=== PATIENT | male | born 1955 | race African-American/Black ===

== ENCOUNTER 2016-08-10 08:03 | Outpatient (CLI) | payer MEDICARE ==
[~2016-08-10] VITALS: Ht 172.7 cm; Wt 104.5 kg
--- NOTE | ~2016-08-10 | HEMODYNAMI ---
PATIENT:JASE MORGAN MEDICAL RECORD: [id number] : 55 LOCATION:D.CAT ADMISSION DATE: 08/10/16 Generatedon:08/10/201610:24 Patient name: JASE MORGAN Patient #: [id number] SSN: : 1955 Date of study: 08/10/2016 Page: Of Hemodynamic Procedure Report Patient Data Patient Demographics Procedure consent was obtained First Name: JASE Gender: Male Last Name: CATHY : 1955 [facility] Initial: STARR Age: 60 year(s) Patient #: [id number] Race: Black Additional ID: [id number] Contact details [address]: [address] [place] [address] State: [place] City: [place] Zip code: [address] Past Medical History Allergies Allergen Reaction Date Comments Reported Other allergy 08/10/2016 Gabapentin Admission Admission Data Admission Date: 08/10/2016 Admission Time: 8:03 Lab Results Lab Result Date: 08/10/2016 Lab Result Time: 0:00 Biochemistry Name Units Result Min Max BUN mg/dl 43 --(----)-* 7 18 Creatinine mg/dl 10 --(----)-* 0.6 1.3 Procedure Procedure Types Cath Procedure Diagnostic Procedure LHC LH w/Coronaries Procedure Description Procedure Date Procedure Date: 08/10/2016 Procedure Start Time: 10:09 Procedure End Time: 10:23 Procedure Staff Name Function Yordan Sharpe MD Performing Physician Sravanthi Callejas RT Scrub Pablito Adair RN Nurse Aly Del Valle RT Monitor Procedure Data Cath Procedure Fluoroscopy Diagnostic fluoroscopy Total fluoroscopy Time: 1.2 time: 1.2 min min Diagnostic fluoroscopy Total fluoroscopy dose: 517 dose: 517 mGy mGy Contrast Material Contrast Material Type Amount (ml) Isovue 300 51 Entry Location Entry Primary Successful Side Size Upsize Upsize Entry Closure Succes sful Closure Location (Fr) 1 (Fr) 2 (Fr) Remarks Device Remarks Femoral Right 5 Fr Exoseal artery Estimated blood loss: 10 ml Diagnostic catheters Device Type Used For End Catheter Placement Medtronic Dexterity 5Fr Procedure Pigtail catheter (NO CHARGE) Medtronic Dexterity 5Fr Procedure JL 4.0 catheter (NO CHARGE) Medtronic Dexterity 5Fr Procedure 3DRC catheter (NO CHARGE) Procedure Medications Medication Administration Route Dosage Oxygen NC 2 l/min Lidocaine 2% added to field 20 Heparin Flush Bag added to field 2 bags (1000units/500ml NS) 0.9% NaCl I.V. 50 ml/hr Versed I.V. 1 mg Fentanyl I.V. 50 mcg Versed I.V. 1 mg Fentanyl I.V. 50 mcg Hemodynamics Rest Heart Rate: 61 (bpm) Pressure Samples Time Site Value (mmHg) Purpose Heart Use Rate(bpm) 10:11 LV 109/24,28 Snapshot 87 Snapshots Pre Cath Intra NCS Post Cath Vital Signs Time Heart Resp SPO2 NIBP (mmHg) Rhythm Pain Sedation Rate (ipm) (%) Status Level (bpm) 9:20:42 68 17 98 183/62(135) NSR 0 (11) 10(A) , No pain 9:25:39 67 27 98 178/61(129) NSR 0 (11) 10(A) , No pain 9:30:32 67 21 94 142/60(116) NSR 0 (11) 10(A) , No pain 9:35:08 65 17 93 156/64(122) NSR 0 (11) 10(A) , No pain 9:39:51 69 15 96 148/67(125) NSR 0 (11) 10(A) , No pain 9:45:37 68 19 97 145/60(122) NSR 0 (11) 10(A) , No pain 9:50:17 70 22 96 143/55(100) NSR 0 (11) 10(A) , No pain 9:54:58 68 17 95 154/59(92) NSR 0 (11) 10(A) , No pain 9:59:42 66 16 94 140/57(121) NSR 0 (11) 10(A) , No pain 10:04:21 70 19 94 129/60(99) NSR 0 (11) 10(A) , No pain 10:10:03 69 19 95 145/53(89) NSR 0 (11) 9(A) , No pain 10:14:44 71 17 95 157/59(116) NSR 0 (11) 9(A) , No pain 10:19:30 70 16 91 162/56(114) NSR 0 (11) 10(A) , No pain Medications Time Medication Route Dose Verified Delivered Reason Notes Effe ctiveness by by 9:25:16 Oxygen NC 2 Yordan Buffie used for l/min Dell Adair RN procedure 9:25:23 Lidocaine 2% added 20ml Yordan Yordan for local to vial Dell Sharpe MD anesthetic field 9:25:28 Heparin Flush added 2 Yordan Yordan used for Bag to bags Dell Sharpe MD procedure (1000units/500ml field NS) 9:25:37 0.9% NaCl I.V. 50 Yordan Buffie Per ml/hr Dell Adair RN physician 10:07:51 Versed I.V. 1 mg Yordan Ambrosioie for Dell Adair RN sedation 10:07:56 Fentanyl I.V. 50 Yordan Buffie for mcg Dell Adair RN sedation 10:14:42 Versed I.V. 1 mg Yordan Buffie for Dell Adair RN sedation 10:14:46 Fentanyl I.V. 50 Yordan Buffie for mcg Dell Adair RN sedation Procedure Log Time Note 9:14:00 Diagnostic Cath Status : Elective 9:14:52 Sravanthi Callejas RT(R) sent for patient. Start room use. 9:14:56 Time tracking: Regular hours 9:15:03 Plan of Care:Hemodynamics will remain stable., Cardiac rhythm will remain stable., Comfort level will be maintained., Respiratory function will remain adequate., Patient/ family verbilizes understanding of procedure., Procedure tolerated without complication., Recovers from procedure without complications.. 9:15:13 Patient received from Pre/Post Procedure Room to CCL 2 Alert and oriented. Tansferred to table in Supine position. 9:15:16 Warm blankets applied, and taryn hugger turned on for patient comfort. 9:15:18 Correct patient and procedure confirmed by team. 9:15:20 Signed procedure consent form obtained from patient. 9:15:24 ECG and BP/O2 sat monitors applied to patient. 9:18:57 Vital chart was started 9:19:56 Baseline sample Acquired. 9:20:04 Full Disclosure recording started 9:21:22 Snore? Yes 9:21:23 Sleep apnea? Yes 9:21:28 Patient diabetic? Yes. 9:21:29 If diabetic: On Metformin? No 9:23:41 Pre-procedure instructions explained to patient. 9:23:43 Family in waiting room. 9:23:45 Patient NPO since Midnight. 9:24:12 Patient allergic to Other allergyGabapentin 9:24:15 Is the patient allergic to Iodine/contrast media? No. 9:24:18 Is patient on blood thinner?No 9:24:31 Dentures? No ? 9:24:49 IV patent on arrival in left forearm with 0.9% NaCl at [facility]. 9::56 Lab results completed and on chart, pending. 9:25:00 Right groin area was prepped with chlora-prep and draped in sterile fashion 9:25:01 Alarms reviewed by R. N. 9:25:02 Sharps counted by scrub and verified by R.N. 9:25:02 Physician paged 9:25:16 Oxygen 2 l/min NC was administered by Pablito Adair RN; used for procedure; 9:25:23 Lidocaine 2% 20ml vial added to field was administered by Yordan Sharpe MD; for local anesthetic; 9:25:28 Heparin Flush Bag (1000units/500ml NS) 2 bags added to field was administered by Yordan Sharpe MD; used for procedure; 9:25:37 0.9% NaCl 50 ml/hr I.V. was administered by Pablito Adair RN; Per physician; 9::28 Use device set Femoral Dx 9:26:30 Acist Syringe opened to sterile field. 9:26:30 Bag Decanter opened to sterile field. 9:26:36 Medline Cath Pack opened to sterile field. 9:26:36 Terumo 5Fr Ida Sheath opened to sterile field. 9:26:37 St Brandon 260cm J .035 wire opened to sterile field. 9:26:39 Acist Hand Control opened to sterile field. 9:26:40 Acist Manifold opened to sterile field. 9::44 Tegaderm 4 x 4 opened to sterile field. 9::40 Lab Result : BUN 43 mg/dl 9:29:40 Lab Result : Creatinine 10 mg/dl 9:33:12 Deviated septum? No 9:33:14 Opens mouth fully? Yes 9:33:17 Sticks out tongue? Yes 9:33:21 Airway obstruction? No ? 9:33:49 Pre procedure: right dorsailis pedis pulse 1+ Palpable, but thready & weak; easily obliterated 9:33:54 Patient pain scale 0/10 ?. 9:34:12 Patient is right arm reserve 9:36:11 Dr. Sharpe in room 1 9:52:50 Baseline sample Acquired. 9:52:59 Rhythm: sinus rhythm 9:53:06 Baseline sample Acquired. 10:07:08 Physician arrived 10:07:09 --------ALL STOP TIME OUT------ 10:07:10 Final Timeout: patient, procedure, and site verified with staff and physician. All members of the team are in agreement. 10:07:12 Right groin site verified by team. 10:07:16 Physical assessment completed. ASA score P 3 - A patient with severe systemic disease as per Yordan Sharpe MD. 10:07:21 Sedation plan: IV Moderate Sedation Versed, Fentanyl 10:07:36 Zero performed for pressure channel P1 10:07:51 Versed 1 mg I.V. was administered by Pablito Adair RN; for sedation; 10:07:56 Fentanyl 50 mcg I.V. was administered by Pablito Adair RN; for sedation; 10:09:21 Procedure started. 10:09:27 Local anesthetic to right femoral artery with Lidocaine 2% by Yordan Sharpe MD.INITIAL ACCESS ONLY 10:10:16 A 5 Fr sheath was inserted into the Right Femoral artery 10:10:28 A Medtronic Dexterity 5Fr Pigtail catheter (NO CHARGE) was advanced over the wire and used for Procedure. 10:11:42 LV hemodynamics recorded. 10:11:54 LV gram done using PIÑA 10:11:58 LV Function : Abnormal 10:12:04 EF : 30 % 10:12:07 Catheter removed. 10:12:24 A Medtronic Dexterity 5Fr JL 4.0 catheter (NO CHARGE) was advanced over the wire and used for Procedure. 10:12:53 LCA angiography performed. 10:14:07 Catheter removed. 10:14:16 A Medtronic Dexterity 5Fr 3DRC catheter (NO CHARGE) was advanced over the wire and used for Procedure. 10:14:42 Versed 1 mg I.V. was administered by Pablito Adair RN; for sedation; 10:14:46 Fentanyl 50 mcg I.V. was administered by Pablito Adair RN; for sedation; 10:14:49 RCA angiography performed. 10:14:57 Catheter removed. 10:15:51 Cordis 5Fr Exoseal opened to sterile field. 10:16:05 Sheath removed intact; hemostasis achieved with Exoseal to the Right Femoral artery. 10:16:07 Procedure ended.(Physican Out) 10:16:21 Fluoroscopy time 01.20 minutes. 10:16:29 Flurop Dose total: 517 10:16:29 Fluoroscopy dose: 517 mGy 10:16:40 Contrast amount:Isovue 300 51ml. 10:16:41 Sharps counted by scrub and verified by R.N. 10:21:26 Insertion/operative site no bleeding no hematoma. 10:21:30 Post-op/insertion site Right Femoral artery dressed using a 4 x 4 and Tegaderm. 10:21:35 Post right femoral artery:stable 10:21:38 Post Procedure Pulses reassessed and unchanged 10:21:43 Post-procedure physical assessment completed. ASA score P 3 - A patient with severe systemic disease as per Yordan Sharpe MD. 10:21:47 Post procedure rhythm: unchanged. 10:21:50 Estimated blood loss: 10 ml 10:21:51 Post procedure instruction explained to patient.Patient verbalizes understanding. 10:21:52 Patient needs reinforcement of post procedure teaching. 10:21:54 Procedure and supply charges have been captured, reviewed, submitted and are correct. 10:22:37 Vital chart was stopped 10:23:11 See physician's report for complete and final results. 10:23:13 Report given to Pre/Post Procedure Room. 10:23:35 Patient transfered to Pre/Post Procedure Room with Stretcher. 10:23:39 Procedure ended. 10:23:39 Full Disclosure recording stopped 10:23:42 End room use (Document Last) Device Usage Item Name Manufacture Quantity Catalog Hospital Part Current Minimal Lo t# / Number Charge Number Stock Stock Serial# Code Acist Acist 1 [id number] 20 ComCam Bag Microtek 1 [id number] 36008 [id number] 5 Dec[employer] Medline Cardinal 1 [id number] 04966 545173 5 Cath Pack MobStac Terumo Terumo 1 [id number] 653240 647861 [address] Brandon 1 118188 388206 332102 [id number] 30 260cm J .035 wire Acist Acist 1 82681 [id number] 347736 816098 5 Hand Medical Control Systems Inc Acist Acist 1 48707 190758 319971 483329 5 Manifold Medical Systems Inc Tegaderm 3M 1 [id number] 399068 439562 017700 5 4 x 4 Medtronic Medtronic 1 [id number] 824683 285729 5 Dexterity 5Fr Pigtail catheter (NO CHARGE) Medtronic Medtronic 1 [id number] [id number] 5 Dexterity 5Fr JL 4.0 catheter (NO CHARGE) Medtronic Medtronic 1 [id number] 211183 946209 5 Dexterity 5Fr 3DRC catheter (NO CHARGE) Cordis Cardinal 1 [id number] 937026 684887 10 5Fr Health Exoseal Signature Audit Edmond Stage Time Signature Unsigned Intra-Procedure 08/10/2016 Aly Del Valle 10:24:15 AM RT(R) (CV) Signatures Monitor : Aly Del Valle RT Signature : Date : Time : [address] [place] [address]
--- NOTE | ~2016-08-10 | HP ---
PATIENT: JASE GEORGE MEDICAL RECORD: [id number] ACCOUNT: [id number] LOCATION:[facility] : 55 ADMISSION DATE: 08/10/16 HISTORY AND PHYSICAL EXAMINATION ADMITTING DIAGNOSES: 1. Angina. 2. Coronary artery disease. 3. Previous percutaneous transluminal coronary angioplasty stent, last being in 2013. 4. Hyperlipidemia. 5. Hypertension. HISTORY OF PRESENT ILLNESS: Mr. George has increasing anginal symptomatology just like that of his previous angina. Last cardiac stent was approximately 3 years ago. He has been in an escalating fashion despite maximal medical therapy with calcium channel blockers and beta blockers. PHYSICAL EXAMINATION: GENERAL APPEARANCE: Well-nourished, well-developed, appears stated age. Level of distress, comfortable. PSYCHIATRIC: Mental status, alert, normal affect. Orientation, oriented to time, place and person. EYES: Lids and conjunctiva, noninjected. No discharge, no pallor. ENT: Lips, teeth, gums, normal dentition. Oropharynx, no cyanosis, no pallor. NECK: Carotid arteries, bilateral normal upstroke, no bruits, no thrills. JUGULAR VEINS: No jugular venous pressure or distention. CERVICAL LYMPH NODES: Nontender, nonenlarged. THYROID: Not enlarged. Nontender. No nodules. LUNGS: Respiratory effort, unlabored. CHEST: Normal curvature. No thoracic deformity. No chest wall tenderness. Percussion, resonant. Auscultation, clear. No wheezes, no rales, no rhonchi. CARDIOVASCULAR: Precordial exam, nondisplaced. No heaves or pericardial thrills. Rate and rhythm, regular. Heart sounds, normal S1, normal S2. No S3, no gallop, no rub. Systolic murmur, not heard. Diastolic murmur, not heard. EXTREMITIES: No cyanosis, no edema. Peripheral pulses, full and equal in all extremities, except as noted. No bruits appreciated. ABDOMEN: Soft, nondistended. Normal aorta. No bruit. Nontender. No masses. Liver, nontender, no hepatomegaly. Spleen, nontender, no splenomegaly. MUSCULOSKELETAL: No joint tenderness. No joint swelling. No erythema. NEUROLOGICAL: Normal gait, normal strength, normal tone. SKIN: Warm and dry. REVIEW OF SYSTEMS: The patient reports easy bruising but reports no swollen glands. The patient reports no fever, no night sweats, no significant weight gain, no significant weight loss. No significant exercise tolerance. The patient reports no dry eyes, no irritation, no vision change. Patient reports no difficulty hearing and no ear pain. Patient reports no frequent nose bleeds or nose and sinus problems. Patient reports on arm pain on exertion. No shortness of breath while lying down. No history of heart murmur. Patient reports no cough, no wheezing or coughing up blood. Patient reports no abdominal pain, no vomiting. Normal appetite. No diarrhea and not vomiting blood. No nausea and no constipation. Patient reports no incontinence. No difficulty urinating. No hematuria. No increased frequency. Patient reports no muscle aches. No weakness, no arthralgias, no back pain. No swelling of the HISTORY AND PHYSICAL [id number] CATHY,JASE STARR extremities. Patient reports no abnormal mole, no jaundice, no rashes. Reports no loss of consciousness. No weakness and no numbness. No seizures, dizziness, or headaches. The patient reports no depression, no sleep disturbance, feeling safe in a relationship and no alcohol abuse. Patient reports on fatigue. Reports no runny nose or sinus pressure. No itching, no hives, and no frequent sneezing. OVERALL IMPRESSION: Increasing angina. We will proceed with coronary angiography. Further care depends upon findings of the angiography. TRANSINT:[id number] Voice Confirmation ID: [id number] DOCUMENT ID: [id number] LORA MENDENHALL MD CC: [id number] DICTATION DATE: 08/10/16806 ZONING ASSISTANT: 08/10/16818 [facility] [address] [place] [address]
--- NOTE | ~2016-08-10 | OP ---
PATIENT NAME: JASE MORGAN MEDICAL RECORD: [id number] :55 LOCATION:D.CAT ADMISSION DATE: SURGEON: LORA MENDENHALL MD DATE OF OPERATION: 08/10/2016 PROCEDURES: 1. Left heart catheterization. 2. Selective coronary angiography. 3. Left ventriculogram. PROCEDURE IN DETAIL: After informed consent was obtained and after a detailed explanation of risks, benefits as well as alternative therapies, the patient elected to proceed with angiogram and heart catheterization. The right femoral area was prepped and draped in normal sterile fashion. The right femoral artery was cannulated via modified Seldinger technique with placement of 6-Pakistani sheath. All catheters exchanged through this sheath. FINDINGS: The left ventriculogram was performed in the standard 30-degree PIÑA view, reveals ejection fraction in the 35% range. SELECTIVE CORONARY ANGIOGRAPHY: 1. Left main showed no significant angiographic disease. 2. Left anterior descending has previously placed stents, these are widely patent with no significant restenosis. 3. Left circumflex has moderate irregularities, but no flow-limiting stenosis. 4. Right coronary has previously placed stents, these were totally occluded in the mid vessel, there is chronic total occlusion. Distal right coronary fills via [id number] collaterals. OVERALL IMPRESSION: Total occlusion of the RCA with left to right collaterals. Otherwise, no significant disease. Continue medical management of the coronary artery disease and cardiac risk factors. TRANSINT:[id number] Voice Confirmation ID: [id number] DOCUMENT ID: [id number] LORA MENDENHALL MD CC: [id number] DICTATION DATE: 08/10/16 1028 RN REHAB: 08/10/16 1119 [id number] [place] [address]
[~2016-08-10 08:03] MED LIST: CARDURA2 MG; CLARITIN 10 MG10 MG PO; CYCLOBENZAPRINE10 MG PO; FLUTICASONE PRO16 GM NASAL; FOLTX; GLUCOTROL 5 MG T5 MG PO; KLONOPIN0.5 MG PO; LAMICTAL100 MG PO; LINZESS290 MCG PO; LYRICA25 MG PO; MECLIZINE HCL25 MG PO; MUCINEX600 MG PO; NEURONTIN 100100 MG PO; NORVASC10 MG PO; PLAVIX75 MG PO; PRAVACHOL40 MG PO; PRILOSEC20 MG PO; REGLAN5 MG PO; RENVELA800 MG PO; TOPROL XL50 MG PO; ULTRAM50 MG PO; VIBRAMYCIN 100100 MG PO; VOL-CARE
[2016-08-10 08:50] VITALS: BP 144/73; Ht 172.7 cm; Wt 104.5 kg
[2016-08-10 09:13] LABS: ANION GAP 17.8 mmol/L (8-16); CALCIUM 7.8 mg/dL (8.5-10.1); CARBON DIOXIDE 24.8 mmol/L (21.0-32.0); POTASSIUM - SERUM 5.6 mmol/L (3.5-5.1)
[2016-08-10 09:33] LABS: BASOPHILS 0.6 % (0-2); EOSINOPHILS 12.4 % (0-7); HEMOGLOBIN 14.7 g/dL (13.5-17.5); IMMATURE GRANULOCYTES 0.1 % (0-5); LYMPHOCYTES 19.9 % (15-50); MCH 29.1 pg (26.0-34.0); MCHC 31.3 g/dL (31.0-37.0); MCV 93.1 fL (80.0-100.0); MEAN PLATELET VOLUME 10.7 fL (7.4-10.4); MONOCYTES 8.8 % (2-11); NEUTROPHILS 58.2 % (40-80); PLATELET COUNT 186 10x3/uL (130-400); RBC 5.05 10x6/uL (4.20-6.10); RDW 18.2 % (11.5-14.5); WBC 7.2 10x3/uL (4.8-10.8)
--- NOTE | 2016-08-10 10:50 | NUR ---
2L NC, NO RESP DISTRESS NOTED. RIGHT GROIN EXOSEAL CDI, NO BLEEDING OR HEMATOMA NOTED. NO C/O CHEST PAIN OR NAUSEA. VSS. BROADCAST METEOROLOGIST SHOWS NSR @ 70. INSTRUCTED PT TO KEEP HEAD FLAT ON PILLOW AND RIGHT LEG STRAIGHT.
--- NOTE | 2016-08-10 11:20 | NUR ---
2L NC, NO RESP DISTRESS. RIGHT GROIN EXOSEAL FARIBA, NO BLEEDING OR HEMATOMA NOTED. MONITOR SHOWS NSR @ 68. VSS. NO C/O CHEST PAIN OR NAUSEA. AT BEDSIDE, CALL LIGHT WITHIN REACH.
--- NOTE | 2016-08-10 11:35 | NUR ---
RESTING QUIETLY WITH EYES CLOSED. VSS. 2L NC, NO RESP DISTRESS NOTED. RIGHT GROIN EXOSEAL CDI, NO BLEEDING OR HEMATOMA NOTED. NO C/O CHEST PAIN OR NAUSEA. WILL CONTINUE TO MONITOR.
--- NOTE | 2016-08-10 12:05 | NUR ---
HOB ELEVATED 30 DEGREES. RIGHT GROIN CDI, NO BLEEDING NOTED.
--- NOTE | 2016-08-10 12:19 | NUR ---
LEFT HAND PIV D/C'D WITH CATHETER INTACT. BAND AID TO SITE. UP TO BEDSIDE TO GET DRESSED.
--- NOTE | 2016-08-10 12:30 | NUR ---
DISCHARGE INSTRUCTIONS GIVEN, VERBALIZED UNDERSTANDING.
--- NOTE | 2016-08-10 12:35 | NUR ---
TAKEN OUT VIA WHEELCHAIR BY CATH FIELD ADMINISTRATOR. LEFT FACILITY WITH AND ALL PERSONAL BELONGINGS.
== END 2016-08-10 12:35 | disposition home or self-care (01) ==
LOC: D.CATH 08:03
PROVIDERS: Internal Medicine Interventional Cardiology
DX: I25.119 Atherosclerotic heart disease of native coronary artery with unspecified angina pectoris (principal); I25.82 Chronic total occlusion of coronary artery; T82.855A Stenosis of coronary artery stent, initial encounter; E78.5 Hyperlipidemia, unspecified; I10 Essential (primary) hypertension

== ENCOUNTER → 2017-02-28 07:00 | Outpatient (CLI) | payer MEDICARE ==
[2016-08-10 08:50] VITALS: BMI 35.0
== END | disposition home or self-care (01) ==
LOC: D.CT 07:00
DX: N18.6 End stage renal disease (principal); Z86.79 Personal history of other diseases of the circulatory system

== ENCOUNTER → 2017-04-07 09:04 | Outpatient (CLI) | payer MEDICARE ==
[2016-08-10 08:50] VITALS: BMI 35.0
== END | disposition home or self-care (01) ==
LOC: D.CT 09:04
DX: J98.11 Atelectasis (principal)

== ENCOUNTER → 2017-11-08 08:54 | Outpatient (CLI) | payer MEDICARE ==
[2016-08-10 08:50] VITALS: BMI 35.0
== END | disposition home or self-care (01) ==
LOC: D.CT 08:54
DX: J98.11 Atelectasis (principal)

== ENCOUNTER 2018-05-29 08:40 | Day surgery (SDC) | payer MEDICARE ==
[~2018-05-29] VITALS: Ht 172.7 cm; Wt 106.6 kg
[2018-05-29 09:15] LABS: ANION GAP 18.7 mmol/L (8-16); CALCIUM 8.5 mg/dL (8.5-10.1); CARBON DIOXIDE 23.3 mmol/L (21.0-32.0); CREATININE - SERUM 8.5 mg/dL (0.6-1.3)
[2018-05-29 09:19] LABS: APTT 41.9 SECONDS (22.8-39.4); INR 1.08 (0.85-1.17); PROTIME 13.5 SECONDS (11.6-15.0)
[2018-05-29 09:32] LABS: BASOPHILS 0.1 % (0-2); EOSINOPHILS 1.8 % (0-7); HEMATOCRIT 40.3 % (42.0-54.0); HEMOGLOBIN 13.3 g/dL (13.5-17.5); IMMATURE GRANULOCYTES 0.2 % (0-5); LYMPHOCYTES 11.1 % (15-50); MCH 29.8 pg (26.0-34.0); MCV 90.2 fL (80.0-100.0); MEAN PLATELET VOLUME 10.8 fL (7.4-10.4); MONOCYTES 5.1 % (2-11); NEUTROPHILS 81.7 % (40-80); PLATELET COUNT 205 10x3/uL (130-400); RBC 4.47 10x6/uL (4.20-6.10); RDW 15.8 % (11.5-14.5); WBC 8.4 10x3/uL (4.8-10.8)
[2018-05-29] MEDS ORDERED: SENSIPAR30 MG PO (10:12)
[2018-05-29 10:17] VITALS: BP 153/90; Ht 172.7 cm; Wt 106.6 kg
--- NOTE | 2018-05-29 15:02 | NUR ---
DR DAY SENT AFRIN HOME WITH PATIENT, ANOTHER ONE GIVEN TO PATIENT, IN RECOVERY ROOM.
--- NOTE | 2018-05-29 15:12 | NUR ---
PATIENT HAD COUGH PREOPERATIVE AND HAS COUGH POSTOP IN RECOVERY ROOM.
[2018-05-31 15:22] LABS: FUNGUS STAIN Final report (())
[2018-05-31 16:11] LABS: ACID FAST SMEAR Negative (()); AFB SPECIMEN PROCESSING Concentration (())
--- NOTE | 2018-06-05 08:45 | HP ---
PATIENT: JASE GEORGE MEDICAL RECORD: [id number] ACCOUNT: [id number] LOCATION:[facility] : 55 ADMISSION DATE: 05/29/18 PCP: JESUS MAYFIELD MD HISTORY AND PHYSICAL EXAMINATION HISTORY: Mr. George has been having chronic problems with drainage and been found to have opacified left maxillary sinus, has not been responding to medical therapy. He is being admitted for bilateral middle meatal antrostomy. PAST MEDICAL HISTORY: Includes diabetes, end-stage renal disease, reflux, pacemaker. PAST SURGICAL HISTORY: Includes CABG, hernia repair, knee surgery. He is on dialysis. MEDICATIONS: Include Plavix, amlodipine, tramadol, Lyrica, metoprolol, omeprazole, Linzess, Sensipar, Breo, Renvela, albuterol. ALLERGIES: No known drug allergies. PHYSICAL EXAMINATION: GENERAL: Healthy-appearing. FACE: Normal, symmetric, no lesions. EYES: Sclerae and conjunctivae are normal. EARS: Canals and TMs are normal. NOSE: There is a thick purulent drainage coming from the left maxillary sinus. ORAL CAVITY AND OROPHARYNX: Tongue protrudes in midline. Pharynx is normal. NECK: No masses. No adenopathy. CHEST: Clear. CARDIOVASCULAR: Regular rate and rhythm. No murmur. EXTREMITIES: Normal. IMPRESSION: Chronic maxillary sinusitis. Has a history of fungal sinusitis back about 9 years ago. I suspect that is same problem. He is being admitted for bilateral middle meatal antrostomy, for cultures and path. TRANSINT:[id number] Voice Confirmation ID: [id number] DOCUMENT ID: [id number] ALVINO DAY MD at 0845 CC: [id number] DICTATION DATE: 05/26/18 0930 PATTERN REPAIR PERSON: 05/26/18 1049 [facility] 05/29/18 [place] [address]
--- NOTE | 2018-06-05 08:45 | OP ---
PATIENT NAME: JASE MORGAN MEDICAL RECORD: [id number] :55 [facility] AD[facility] DATE: SURGEON: ALVINO CARMONA MD DATE OF OPERATION: 05/29/2018 PREOPERATIVE DIAGNOSES: Bilateral chronic maxillary sinusitis. POSTOPERATIVE DIAGNOSES: Bilateral chronic maxillary sinusitis. PROCEDURES: Bilateral middle meatal antrostomy. SURGEON: Alvino Carmona MD ANESTHESIA: General orotracheal. BLOOD LOSS: Less than 5 cc. SPECIMENS: Cultures and path of material from the left maxillary sinus. COMPLICATIONS: None. PACKING: None. DISPOSITION: Recovery, stable. DESCRIPTION OF PROCEDURE: He was brought to the operating room, placed in the supine position, and sedated and intubated by anesthesia. Both sides of the nose were examined using headlight and nasal speculum. Inferior turbinate, middle turbinate, and uncinate lateral nasal wall were injected with a total 1.5 cc of 1% lidocaine with 1:100,000 epinephrine. He had been decongested with Afrin preoperatively. Two Afrin pledgets were placed in the middle meatus bilaterally and table was turned 90 degrees. He was positioned, prepped, and draped in the usual fashion for nasal surgery. Using a 0-degree scope, both sides of the nose were examined. All the Afrin pledgets were removed. The right side was examined first. Inferior turbinate was normal. The right middle meatus was opened slightly, but the maxillary sinus was fairly clean and there was nothing in there. The ethmoid cavity was checked as well and it was clean. The sinus was irrigated and examined, and was normal; just opened up a little bit there. The nasal cavity and nasopharynx were normal. There was some septal deviation, but not too bad. The left side was then examined and there was obvious purulence coming from the middle meatus. The middle turbinate was gently medialized. There was a Misti's cell there with some granular changes and some granular edematous tissue covering the natural meatus. Forceps was used to remove quite a bit of that for pathology. Then, the middle meatus was entered with a large curved olive tip suction. It was suctioned with a Luki trap. Some chunks of solid green material were obtained. This was sent for cultures including aerobic, anaerobic, and fungal. Using a microdebrider, the anterior ethmoids were taken down somewhat and then the maxillary ostia was opened widely, again the 30-degree scope in there and long curved olive tip suction. The superior sinus cleaned out easily, but the inferior half of the sinus was basically a solid block of hard green material. This could be broken up, but it was difficult to remove. Another curved olive tip suction was inserted in the inferior meatus and popped into the maxillary sinus to help break up and debride that material, that combined with irrigating in one suction and suctioning with other simultaneously with 100 cc of saline, was able to OPERATIVE REPORT [id number] JASE MORGAN break up and remove all that. I then examined the maxillary sinus with 30- and 70-degree scopes. There were some granular irregular changes to the mucosa from chronic infection, but the sinus was completely clean with a nice clean large maxillary ostia. The ethmoids were irrigated. The nasopharynx was irrigated with everything completely clean and dry. Curved olive tip suction with some mupirocin was used to place in the left maxillary sinus and the ethmoid cavity. He was awakened, extubated, and transported to recovery in good condition. No complications. TRANSINT:[id number] Voice Confirmation ID: [id number] DOCUMENT ID: [id number] ALVINO CARMONA MD at 0845 CC: [id number] DICTATION DATE: 05/29/18 1504 CLEAT MAKER: 05/29/18 1743 [facility] 05/29/18 [facility] [address] [place] [address]
[2018-06-06 12:14] LABS: FUNGUS MYCOLOGY CULTURE Preliminary report (())
== END 2018-05-29 17:00 | disposition home or self-care (01) ==
LOC: D.OPS 08:40 → D.PAN 08:45 → D.OPS 08:45
PROVIDERS: Anesthesiology; Otolaryngology
DX: J32.0 Chronic maxillary sinusitis (principal); E11.22 Type 2 diabetes mellitus with diabetic chronic kidney disease; N18.6 End stage renal disease; Z99.2 Dependence on renal dialysis; K21.9 Gastro-esophageal reflux disease without esophagitis; Z95.1 Presence of aortocoronary bypass graft; Z95.0 Presence of cardiac pacemaker; Z79.02 Long term (current) use of antithrombotics/antiplatelets; Z79.891 Long term (current) use of opiate analgesic; Z01.812 Encounter for preprocedural laboratory examination

== ENCOUNTER 2019-06-06 10:53 | Inpatient (IN) | payer MEDICARE ==
[2019-06-06] VITALS (17 sets, daily range): BP systolic 87–189; BP diastolic 27–106; BMI 37.1
[~2019-06-06] VITALS: Ht 172.7 cm; Wt 99.7 kg
--- NOTE | ~2019-06-06 | HEMODYNAMI ---
PATIENT:JASE MORGAN MEDICAL RECORD: [id number] : 55 [id number] ADMISSION DATE: 06/06/19 Generatedon:06/08/201913:38 Patient name: JASE MORGAN Patient #: [id number] : 1955 Date of study: 06/08/2019 Page: Of Hemodynamic Procedure Report Patient Data Patient Demographics Procedure consent was obtained First Name: JASE Gender: Male Last Name: CATHY : 1955 Middle Initial: STARR Age: 63 year(s) Patient #: [id number] Race: Black SSN: [id number] Additional ID: [id number] Contact details [address]: [address] [place] [address] State: [place] City: [place] Zip code: [address] Past Medical History Allergies Allergen Reaction Date Comments Reported Other allergy 08/10/2016 Gabapentin Admission Admission Data Admission Date: 06/06/2019 Admission Time: 17:33 Arrival Date: 06/08/2019 Arrival Time: 0:00 Admit Source: Other Insurance Payor: Medicare Room #: D.2310 [facility] #: [id number] Height (in.): 68 BSA: 2.23 (m2) Height (cm.): 172.72 BMI: 37.24 (kg/m2) Weight (lbs.): 244.93 Weight (kg.): 111.1 Lab Results Lab Result Date: 06/08/2019 Lab Result Time: 0:00 Biochemistry Name Units Result Min Max BUN mg/dl 49 --(----)-* 7 18 CK-MB ng/ml 2.5 --(--*-)-- 0 3.6 Creatinine mg/dl 9.8 --(----)-* 0.6 1.3 eGFR ml/min 6 *-(----)-- 90 120 NONAFRICAN Troponin l ng/ml 0.274 --(----)-* 0 0.06 CBC Name Units Result Min Max Hematocrit % 46.7 --(-*--)-- 42 54 Hemoglobin g/dl 15.1 --(-*--)-- 13.5 17.5 Procedure Procedure Types Cath Procedure Diagnostic Procedure [facility] w/Coronaries Sedation Charges Moderate Sedation up to 15 minutes PCI Procedure Coronary Stent Coronary Stent Initial Hemochron ACT Test Procedure Description Procedure Date Procedure Date: 06/08/2019 Procedure Start Time: 13:15 Procedure End Time: 13:36 Procedure Staff Name Function Pablito Adair RN Nurse Yordan Sharpe MD Performing Physician Chika Grigsby RT Monitor Isabell Portillo RT Scrub Khushboo Toro RN Monitor Procedure Data Cath Procedure Fluoroscopy Diagnostic fluoroscopy Total fluoroscopy Time: 4.3 time: 4.3 min min Diagnostic fluoroscopy Total fluoroscopy dose: 435 dose: 435 mGy mGy Contrast Material Contrast Material Type Amount (ml) Isovue 300 81 Entry Location Entry Primary Successful Side Size Upsize Upsize Entry Closure Succes sful Closure Location (Fr) 1 (Fr) 2 (Fr) Remarks Device Remarks Femoral Right 5 Fr 6 Fr Exoseal artery Short Estimated blood loss: 10 ml Diagnostic catheters Device Type Used For End Catheter Placement MULTIPACK Pigtail 5 Fr Procedure catheter MULTIPACK JL 4.0 5Fr Procedure catheter MULTIPACK 3DRC 5Fr Procedure catheter Procedure Complications No complications Procedure Medications Medication Administration Route Dosage Oxygen Lidocaine 2% added to field 20 Heparin Flush Bag added to field 2 bags (1000units/500ml NS) 0.9% NaCl I.V. Versed I.V. 0.5 mg Heparin Bolus I.V. 4000 units Integrilin (Bolus I.V. 10.2 ml 2mg/ml) Plavix 600 mg Hemodynamics Rest BSA: 2.23 (m2) HGB: 15.1 (g/dl) O2 Consumption: Estimated: 269.94 (ml/min) O2 Co nsumption indexed: Estimated:121.05 (ml/min/m) Heart Rate: 81 (bpm) Snapshots Pre Cath Intra NCS Post Cath Vital Signs Time Heart Resp SPO2 etCO2 NIBP (mmHg) Rhythm Pain Sedation Rate (ipm) (%) (mmHg) Status Level (bpm) 13:04:39 82 21 90 0 116/28(81) NSR (Missing) 9(A) 13:13:40 81 37 93 0 171/136(149) NSR (Missing) 9(A) 13:19:14 80 21 96 0 90/72(85) NSR (Missing) 9(A) 13:22:59 81 20 90 0 102/90(100) NSR (Missing) 9(A) 13:26:54 62 23 92 0 99/84(97) NSR (Missing) 9(A) 13:32:00 62 27 92 0 83/68(72) NSR (Missing) 9(A) 13:35:55 61 8 84 0 87/62(81) NSR (Missing) 9(A) Medications Time Medication Route Dose Verified Delivered Reason Notes Effectiveness by by 13:02:56 Oxygen intubated pt on Yordan Buffie Per physicia n ventilator Dell Adair RN 13:03:08 Lidocaine 2% added to 20ml vial Yordanjason Farr for local field Dell Sharpe MD anesthetic 13:03:15 Heparin Flush added to 2 bags Yordan Yordan used for Bag field Dell Sharpe MD procedure (1000units/500ml NS) 13:03:25 0.9% NaCl I.V. kvo ml/hr Yordan Buffmiah Per physicia n Dell Adair RN 13:17:24 Versed I.V. 0.5 mg Yordan Ambrosioie for sedation Dell Adair RN 13:21:42 Heparin Bolus I.V. 4000 units Yordan Kenney for verified Dell Adair RN anticoagulation with dr sharpe 13:24:39 Integrilin I.V. 10.2 ml Yordan Ambrosioie for wasted (Bolus 2mg/ml) Dell Adair RN antiplatelet 9.8 m l therapy of vial. 13:33:23 Plavix ngt-crushed 600 mg Yordan Buffie for Dell Adair RN antiplatelet therapy Procedure Log Time Note 10:49:29 Informed consent obtained and on chart 12:12:48 Risk of Mortality: 1.7 12:12:52 Risk of blood transfusion: 2.0 12:12:55 Risk of LASHANDA: 18.6 12:13:00 Stress Test: no; N/A ? 12:13:06 Lab results completed and on chart. 12:13:41 Lab Result : eGFR NONAFRICAN 6 ml/min 12:13:41 Lab Result : Hemoglobin 15.1 g/dl Lab Result : Hematocrit 46.7 % : Lab Result : Troponin l 0.274 ng/ml Lab Result : BUN 49 mg/dl Lab Result : Creatinine 9.8 mg/dl : Lab Result : CK-MB 2.5 ng/ml 12:17:44 Arrival Date: 06/08/2019 12:00:00 AM 12:17:45 Admit Source: Other 12::49 Insurance Payor : Medicare 12:18:09 Patient Height : 68 inches 12:18:14 Patient Weight : 244.93 lbs 12::49 Diagnostic Cath Status : Urgent 12::28 Procedure Status Urgent Heart Cath (IP). 12:20:30 Time tracking: Regular hours (M-F 7:00 - 5:00) 12:20:33 Plan of Care:Hemodynamics will remain stable., Cardiac rhythm will remain stable., Comfort level will be maintained., Respiratory function will remain adequate., Patient/ family verbilizes understanding of procedure., Procedure tolerated without complication., Recovers from procedure without complications.. 12:21:24 Pablito Adair RN sent for patient. Start room use. 12:56:46 Patient received from ICU to CCL 3 On ventilator. Tansferred to table in Supine position. PT IS ALERT AND ORIENTED. 12:57:57 Warm blankets applied, and taryn hugger turned on for patient comfort. 12:57:58 Correct patient and procedure confirmed by team. 12:57:59 ECG and BP/O2 sat monitors applied to patient. 12:58:31 Baseline sample Acquired. 12:58:35 Rhythm: sinus rhythm 12:59:54 H&P Date Dictated: 06/08/2019 New H&P dictated by physician.. 12:59:56 Patient NPO since Midnight. 13:00:00 Family in waiting room. 13:00:02 Pre-procedure instructions explained to patient. 13:00:02 Pre-op teaching completed and patient verbalized understanding. 13:00:05 Is patient on blood thinner?No 13:00:21 PATIENT OFF OF PLAVIX SINCE TUESDAY- PER 13:00:25 Patient diabetic? Yes. 13:00:26 If diabetic: On Metformin? No 13:00:28 Previous problem with sedation/anesthesia? No ? 13:00:29 Snore? Yes 13:00:45 Sleep apnea? No 13:00:46 Deviated septum? No 13:00:47 Opens mouth fully? Yes 13:00:48 Sticks out tongue? Yes 13:01:58 Baseline sample Acquired. 13:02:56 Oxygen pt on ventilator intubated was administered by Pablito Adair RN; Per physician; Verbal order read back and verified. 13:03:08 Lidocaine 2% 20ml vial added to field was administered by Yordan Sharpe MD; for local anesthetic; Verbal order read back and verified. 13:03:15 Heparin Flush Bag (1000units/500ml NS) 2 bags added to field was administered by Yordan Sharpe MD; used for procedure; Verbal order read back and verified. 13:03:25 0.9% NaCl kvo ml/hr I.V. was administered by Pablito Adair RN; Per physician; Verbal order read back and verified. 13:12:33 Full Disclosure recording started 13:12:37 Vital chart was started 13:12:39 Baseline sample Acquired. 13:13:11 Airway obstruction? Yes ? 13:13:22 Dentures? No ? 13:13:27 Pre procedure: right dorsailis pedis pulse Doppler 13:13:31 Patient pain scale 0/10 ?. 13:13:51 IV patent on arrival in left antecubital with 0.9% NaCl at KVO. 13:14:02 Right groin area was prepped with chlora-prep and draped in sterile fashion 13:14:04 Alarms reviewed by R. N. 13:14:04 Sharps counted by scrub and verified by R.N. 13:14:06 --------ALL STOP TIME OUT------ 13:14:06 Final Timeout: patient, procedure, and site verified with staff and physician. All members of the team are in agreement. 13:14:08 Right groin site verified by team. 13:14:12 Fire Safety Assessment: A--An alcohol-based skin anteseptic being used preoperatively., C--Open oxygen or nitrous oxide is being used., D--An ESU, laser, or fiber-optic light is being used. 13:14:19 Physical assessment completed. ASA score P 4 - A patient with severe systemic disease that is a constant threat to life as per Yordan Sharpe MD. 13:14:29 2) 60-89 Mildly reduced kidney function, and other findings (as for stage 1) point to kidney disease. 13:15:06 Maximum allowable contrast dose (3.7 X eGFR X 0.75)169 ml. 13:15:11 Sedation plan: IV Moderate Sedation Medication:Versed, Fentanyl 13:15:31 Use device set Femoral Dx 13:15:33 ACIST Syringe (56417) opened to sterile field. 13:15:33 Bag Decanter (2002S) opened to sterile field. 13:15:34 Medline Cath Pack ([id number]) opened to sterile field. 13:15:37 ACIST Hand Control (64473) opened to sterile field. 13:15:38 ACIST Manifold (60184) opened to sterile field. 13:15:40 DIAGNOSTIC Multipack 5Fr catheter set (KG7074) opened to sterile field. 13:15:43 SHEATH 5FR Goodell (ODY068) opened to sterile field. 13:15:44 EMERALD Guide Wire (290-258) opened to sterile field. 13:15:50 Procedure started. 13:15:55 Local anesthetic to right femoral artery with Lidocaine 2% by Yordan Sharpe MD.INITIAL ACCESS ONLY 13:16:12 A 5 Fr sheath was inserted into the Right Femoral artery 13:17:24 Versed 0.5 mg I.V. was administered by Pablito Adair RN; for sedation; Verbal order read back and verified. 13:17:27 A MULTIPACK Pigtail 5 Fr catheter was advanced over the wire and used for Procedure. 13:17:36 LV gram done using PIÑA 13:17:43 EF : 30 % 13:17:48 Injector settings: Ml/sec: 5, Volume: 15, 13:17:51 Catheter removed. 13:17:58 A MULTIPACK JL 4.0 5Fr catheter was advanced over the wire and used for Procedure. 13:18:26 LCA angiography performed. 13:19:19 Catheter removed. 13:19:28 A MULTIPACK 3DRC 5Fr catheter was advanced over the wire and used for Procedure. 13:19:32 RCA angiography performed. 13:20:08 Catheter removed. 13:21:17 Proceeding to intervention. 13:21:38 INFLATOR Jes Asher (ND5612) opened to sterile field. 13:21:42 Heparin Bolus 4000 units I.V. was administered by Pablito Adair RN; for anticoagulation; verified with dr sharpe Verbal order read back and verified. 13:22:08 CHOICE PT Extra Support 182cm wire ([id number]) opened to sterile field. 13:22:15 SHEATH 6FR Goodell (PJZ038) opened to sterile field. 13:22:17 GUIDE 6FR HS II SH catheter ([id number]) opened to sterile field. 13:22:32 Sheath upsized to a 6 Fr Short. 13:23:12 Pre PCI Site: [place] RCA has 99% stenosis. 13:23:19 6 Fr HSII SH guide catheter was inserted over the wire 13:23:25 CHOICE PT ES wire advanced. 13:23:30 Wire advanced across lesion. 13:23:58 Inflate balloon Inflation number: 1 A EUPHORA 2.0 x 30 Balloon ([id number]) was prepped and advanced across the Mid RCA , then inflated to 17 PAMELA for 0:00 (min:sec) . 13:24:03 Inflation number: 2 The EUPHORA 2.0 x 30 Balloon ([id number]) was reinflated across the Mid RCA , to 23 PAMELA for 0:00 (min:sec) . 13:24:21 Inflation number: 3 The EUPHORA 2.0 x 30 Balloon ([id number]) was reinflated across the Mid RCA , to 23 PAMELA for 0:00 (min:sec) . 13:24:39 Integrilin (Bolus 2mg/ml) 10.2 ml I.V. was administered by Pablito Adair RN; for antiplatelet therapy; wasted 9.8 ml of vial. Verbal order read back and verified. 13:25:34 Balloon removed over the wire. 13:26:38 Place stent Inflation Number: 4 A DIANE RX 3.0 x 38 stent ([id number]) was prepped and advanced across the Mid RCA . The stent was deployed at 13 PAMELA for 0:00 (min:sec) . 13:26:45 Stent catheter was removed intact over wire. 13:28:39 Place stent Inflation Number: 5 A DIANE RX 2.0 x 15 stent ([id number]) was prepped and advanced across the Mid RCA . The stent was deployed at 13 PAMELA for 0:00 (min:sec) . 13:29:10 Stent catheter was removed intact over wire. 13:29:11 Wire removed. 13:29:14 Guide catheter removed. 13:29:30 Sheath removed intact; hemostasis achieved with Exoseal to the Right Femoral artery. 13:30:49 Procedure ended.(Physican Out) 13:30:52 Fluoroscopy time 04.30 minutes. 13:30:56 Flurop Dose total: 435 13:30:56 Fluoroscopy dose: 435 mGy 13:31:06 Dose Area Product 53338 mGy/cm. 13:31:20 Contrast amount:Isovue 300 81ml. 13:31:30 Maximum allowable dose exceeded? No. 13:31:33 Sharps counted by scrub and verified by R.N. 13:32:11 Insertion/operative site no bleeding no hematoma. 13:32:14 Post-op/insertion site Right Femoral artery dressed using a 4 x 4 and Tegaderm. 13:32:19 Post right femoral artery:stable, soft, clean and dry 13:32:23 Post Procedure Pulses reassessed and unchanged 13:32:29 Post procedure: right dorsailis pedis pulse Doppler. 13:32:34 Post-procedure physical assessment completed. ASA score P 4 - A patient with severe systemic disease that is a constant threat to life as per Yordan Sharpe MD. 13:32:38 Post procedure rhythm: unchanged. 13:32:49 Estimated blood loss: 10 ml 13:32:52 Post procedure instruction explained to patient.Patient verbalizes understanding. 13:32:53 Patient needs reinforcement of post procedure teaching. 13:33:23 Plavix 600 mg ngt-crushed was administered by Pablito Adair RN; for antiplatelet therapy; Verbal order read back and verified. 13:34:11 Procedure type changed to Cath procedure, Diagnostic procedure, LHC, LHC w/Coronaries, Sedation Charges, Moderate Sedation up to 15 minutes, PCI procedure, Coronary Stent, Coronary Stent Initial, Hemochron ACT Test 13:35:10 ACT drawn and resulted at out of range high seconds. (normal therapeutic range 180-240 seconds). 13:36:34 Procedure and supply charges have been captured, reviewed, submitted and are correct. 13:36:37 Procedure Complication : No complications 13:36:39 Vital chart was stopped 13:36:43 [facility] Findings: MVD- PCI performed (see procedure note) 13:36:44 Operative report dictated upon procedure completion. 13:36:45 See physician's report for complete and final results. 13:36:47 Report given to ICU. 13:36:51 Patient transfered to ICU with Bed. 13:36:53 Procedure ended. 13:36:53 Full Disclosure recording stopped 13:37:03 ACC-PCI Only Patient was given prescriptions, or instructed by Yordan Sharpe MD to start/continue the following medications upon discharge: Plavix 13:37:04 End room use (Document Last) 13:37:15 End room use (Document Last) 13:38:09 End room use (Document Last) Intervention Summary Intervention Notes Time ActionType Lesion and Equipment Used Action# Pressure Duration Attributes 13:23:58 Inflate Mid RCA EUPHORA 2.0 x 1 17 00:00 balloon 30 Balloon ([id number]) 13:24:03 Reinflate Mid RCA EUPHORA 2.0 x 2 23 00:00 balloon 30 Balloon ([id number]) 13:24:21 Reinflate Mid RCA EUPHORA 2.0 x 3 23 00:00 balloon 30 Balloon ([id number]) 13:26:38 Place stent Mid RCA DIANE RX 3.0 x 4 13 00:00 38 stent ([id number]) 13:28:39 Place stent Mid RCA DIANE RX 2.0 x 5 13 00:00 15 stent ([id number]) Device Usage Item Name Manufacture Quantity Catalog Number [facility] Part Current M inimal Lot# / Charge Number Stock Stock Serial# Code ACIST Syringe Acist 1 30814 600753 666420 940071 2 0 (12858) Medical Systems Inc Bag Decanter Microtek 1 [id number] 99728 528973 5 () Medical Inc. Medline Cath Medline 1 [id number] 510147 18255 029647 5 Pack ([id number]) ACIST Hand Acist 1 37832 159983 572946 787676 5 Control Medical (79582) Systems Inc ACIST Manifold Acist 1 79943 666445 872582 157898 5 (44528) Medical Systems Inc DIAGNOSTIC Cardinal 1 FJ5776 956470 23192 532951 3 0 Multipack 5Fr Health catheter set (PO7941) SHEATH 5FR Terumo 1 ODT831 100101 363562 230912 5 Goodell (HVM138) EMERALD Guide Cardinal 1 502-455 810380 564241 638614 5 Wire (502-455) Health MULTIPACK Cardinal 1 116087 5 Pigtail 5 Fr Health catheter MULTIPACK JL Cardinal 1 391537 5 4.0 5Fr Health catheter MULTIPACK 3DRC Cardinal 1 168848 5 5Fr catheter Health INFLATOR Merit Merit 1 XG9469 631389 403060 543486 1 5 Xinguodu (DR3090) CHOICE PT Willits 1 [id number] 772892 547189 395858 5 Extra Support Scientific 182cm wire ([id number]) SHEATH 6FR Terumo 1 FPP759 326029 496517 833382 4 0 Goodell (NMB884) GUIDE 6FR HS Medtronic 1 [id number] 522623 70936 812908 1 II SH catheter ([id number]) EUPHORA 2.0 x Medtronic 1 [id number] 271579 801519 097238 5 [id number] 30 Balloon ([id number]) DIANE RX 3.0 x Medtronic 1 [id number] 821179 4806286 932587 5 [id number] 38 stent ([id number]) DIANE RX 2.0 x Medtronic 1 [id number] 527347 9066366 054499 5 [id number] 15 stent ([id number]) Signature Audit [place] Stage Time Signature Unsigned Intra-Procedure 06/08/2019 Khushboo Toro 1:37:15 PM RN Intra-Procedure 06/08/2019 Pablito Adair RN 1:38:09 PM Intra-Procedure 06/08/2019 Yordan Sharpe 1:38:56 PM [place] 404[address] [facility] [place] [address]
--- NOTE | ~2019-06-06 | HEMODYNAMI ---
PATIENT:JASE MORGAN MEDICAL RECORD: [id number] : 55 LOCATION:[facility] D.2310 [facility]# [id number] ADMISSION DATE: 06/06/19 Generatedon:06/13/20199:37 Patient name: JASE MORGAN Patient #: [id number] : 1955 Date of study: 06/13/2019 Page: Of Hemodynamic Procedure Report Patient Data Patient Demographics Procedure consent was obtained First Name: JASE Gender: Male Last Name: CATHY : 1955 Middle Initial: STARR Age: 63 year(s) Patient #: [id number] Race: Black SSN: [id number] Additional ID: [id number] Contact details [address]: [address] [place] [address] State: [place] City: [place] Zip code: [address] Past Medical History Allergies Allergen Reaction Date Comments Reported Other 08/10/2016 Gabapentin allergy Other 06/13/2019 GABAPENTIN,(POLYSULFONE) allergy Admission Admission Data Admission Date: 06/06/2019 Admission Time: 17:33 Arrival Date: 06/08/2019 Arrival Time: 0:00 Admit Source: Other Insurance Payor: Medicare Room #: D.2310 [facility] #: [id number] Height (in.): 68 BSA: 2.23 (m2) Height (cm.): 172.72 BMI: 37.24 (kg/m2) Weight (lbs.): 244.93 Weight (kg.): 111.1 Lab Results Lab Result Date: 06/13/2019 Lab Result Time: 0:00 Biochemistry Name Units Result Min Max BUN mg/dl 43 --(----)-* 7 18 Creatinine mg/dl 10 --(----)-* 0.6 1.3 eGFR ml/min 7.933054 *-(----)-- 90 120 AM CBC Name Units Result Min Max Hematocrit % 35 *-(----)-- 42 54 Hemoglobin g/dl 11.5 *-(----)-- 13.5 17.5 Procedure Procedure Types Cath Procedure Diagnostic Procedure Sedation Charges Moderate Sedation up to 15 minutes PCI Procedure Coronary Stent Coronary Stent Initial Coronary Stent Initial x2 Hemochron ACT Test Procedure Description Procedure Date Procedure Date: 06/13/2019 Procedure Start Time: 9:12 Procedure End Time: 9:36 Procedure Staff Name Function Yordan Sharpe MD Performing Physician Raghavendra Mccain RN Nurse Isabell Portillo RT Monitor Selma Dominguez RT Scrub Procedure Data Cath Procedure Fluoroscopy Diagnostic fluoroscopy Total fluoroscopy Time: 4 time: 4 min min Diagnostic fluoroscopy Total fluoroscopy dose: 347 dose: 347 mGy mGy Contrast Material Contrast Material Type Amount (ml) Isovue 370 55 Entry Location Entry Primary Successful Side Size Upsize Upsize Entry Closure Succes sful Closure Location (Fr) 1 (Fr) 2 (Fr) Remarks Device Remarks Femoral Right 6 Fr Exoseal artery Short Estimated blood loss: 10 ml Procedure Complications No complications Procedure Medications Medication Administration Route Dosage 0.9% NaCl I.V. 10 ml/hr Oxygen 100 Heparin Flush Bag added to field 2 bags (1000units/500ml NS) Lidocaine 2% 20 Diprivan 1% 40 mcg/kg/min (Propofol) Fentanyl 150 mcg/hr Heparin Bolus I.V. 4000 units Hemodynamics Rest BSA: 2.23 (m2) HGB: 11.5 (g/dl) O2 Consumption: Estimated: 252.46 (ml/min) O2 Co nsumption indexed: Estimated:113.21 (ml/min/m) Heart Rate: 60 (bpm) Snapshots Pre Cath Intra NCS Post Cath Vital Signs Time Heart Resp SPO2 etCO2 NIBP (mmHg) Rhythm Pain Sedation Rate (ipm) (%) (mmHg) Status Level (bpm) 9:07:04 62 21 99 0 107/73(90) NSR 0 (11) 7(A) , No pain 9:13:27 61 18 99 0 137/83(83) NSR 0 (11) 7(A) , No pain 9:18:11 60 21 100 0 129/45(89) NSR 0 (11) 7(A) , No pain 9:23:35 60 21 100 0 84/69(81) NSR 0 (11) 7(A) , No pain 9:28:58 59 21 99 0 164/42(106) NSR 0 (11) 7(A) , No pain 9:33:57 60 21 99 0 Measuring NSR 0 (11) 7(A) , No pain 9:35:19 0 Time NSR 0 (11) 7(A) Exceeded , No pain Medications Time Medication Route Dose Verified Delivered Reason Notes Effectiveness by by 9:00:02 0.9% NaCl I.V. 10 ml/hr Raghavenrda Raghavendra Per physician Kalyn Mccain RN RN 9:00:50 Oxygen OETT-vent 100% Raghavendra Raghavendra for low 02 sats Kalyn Mccain RN RN 9:01:02 Heparin Flush added to 2 bags Raghavendra Raghavendra used for Bag field Lorigan Lorigan procedure (1000units/500ml RN RN NS) 9:01:12 Lidocaine 2% 20ml vial Raghavendra Raghavendra for local Lorigan Lorigan anesthetic RN RN 9:02:31 Diprivan 1% I.V. ( 40 Raghavendra Raghavendra for sedation (Propofol) infusing mcg/kg/min Lorigan Lorigan upon RN RN arrival ) 9:03:54 Fentanyl I.V. ( 150mcg/hr Raghavendra Raghavendra for sedation infusing Lorigan Lorigan upon RN RN arrival ) 9:16:11 Heparin Bolus I.V. 4000 units Raghavendra Raghavendra for Lorigan Lorigan anticoagulation RN fire extinguisher installer Log Time Note 8:21:04 Informed consent obtained and on chart 8:21:11 Patient Weight : 244.93 lbs 8:21:11 Patient Height : 68 inches 8:23:33 Lab Result : Hematocrit 35 % 8:23:33 Lab Result : eGFR AM 7.036133 ml/min 8:23:33 Lab Result : Hemoglobin 11.5 g/dl 8:23:33 Lab Result : BUN 43 mg/dl 8:23:33 Lab Result : Creatinine 10 mg/dl 8:30:40 Procedure Status Urgent Heart Cath (IP). 8:30:46 Time tracking: Regular hours (M-F 7:00 - 5:00) 8:30:56 Plan of Care:Hemodynamics will remain stable., Cardiac rhythm will remain stable., Comfort level will be maintained., Respiratory function will remain adequate., Patient/ family verbilizes understanding of procedure., Procedure tolerated without complication., Recovers from procedure without complications.. 8:31:14 H&P Date Dictated: 06/13/2019 Within 30 days and on chart.. 8:31:26 Patient NPO since Midnight. 8:32:18 Patient allergic to Other allergyGABAPENTIN,(POLYSULFONE) 8:34:04 Raghavendra Mccain RN sent for patient. Start room use. 8:38:15 Risk of Mortality: 0.9 8:38:20 Risk of blood transfusion: 1.9 8:38:25 Risk of LASHANDA: 23.0 8:38:35 Lab results completed and on chart. 8:45:05 Patient received from ICU to CCL 1 On ventilator. Tansferred to table in Supine position. 8:45:07 Warm blankets applied, and taryn hugger turned on for patient comfort. 8:45:08 Correct patient and procedure confirmed by team. 8:45:09 ECG and BP/O2 sat monitors applied to patient. 8:45:31 ACC Patient presents with Stable Angina CCS Anginal Class 4--Inability to carry out any physical activity w/o angina. Angina may occur at rest. 8:56:10 Diagnostic Cath Status : Urgent 8:59:19 Vital chart was started 8:59:21 Full Disclosure recording started 8:59:22 Pre-procedure instructions explained to patient. 8:59:23 Pre-op teaching completed and patient verbalized understanding. 8:59:25 Family in patients room. 8:59:27 Is the patient allergic to Iodine/contrast media? No. 8:59:32 Was the patient premedicated? N/A 8:59:35 Is patient on blood thinner?Yes 8:59:39 ACC The patient was administered the following blood thiners within the last 24 hours: ACCPlavix 8:59:46 Patient diabetic? No. 8:59:49 If diabetic: On Metformin? N/A 8:59:51 ----Pre-sedation anethsthesia assessment.---- 8:59:56 Previous problem with sedation/anesthesia? No ? 8:59:57 Snore? Yes 8:59:59 Sleep apnea? No 9:00:00 Deviated septum? No 9:00:02 0.9% NaCl 10 ml/hr I.V. was administered by Raghavendra Mccain RN; Per physician; Verbal order read back and verified. 9:00:03 Opens mouth fully? No 9:00:05 Sticks out tongue? No 9:00:07 Airway obstruction? No ? 9:00:09 Dentures? No ? 9:00:22 IV patent on arrival in left antecubital with 0.9% NaCl at [facility]. 9:00:48 Patient pain scale 0/10 SEDATED/INTABATED. 9:00:50 Oxygen 100% OETT-vent was administered by Raghavendra Mccain RN; for low 02 sats; Verbal order read back and verified. 9:00:51 Alarms reviewed by R. N. 9:00:51 Sharps counted by scrub and verified by R.N. 9:00:57 Right groin area was prepped with chlora-prep and draped in sterile fashion 9:01:02 Heparin Flush Bag (1000units/500ml NS) 2 bags added to field was administered by Raghavendra Mccain RN; used for procedure; Verbal order read back and verified. 9:01:12 Lidocaine 2% 20ml vial was administered by Raghavendra Mccain RN; for local anesthetic; Verbal order read back and verified. 9:02:01 Physician paged 9:02:05 Use device set Femoral Dx 9:02:06 ACIST Syringe (49877) opened to sterile field. 9:02:14 Bag Decanter (2002S) opened to sterile field. 9:02:14 Medline Cath Pack ([id number]) opened to sterile field. 9:02:16 ACIST Hand Control (98498) opened to sterile field. 9:02:17 ACIST Manifold (25800) opened to sterile field. 9:02:19 EMERALD Guide Wire (502-785) opened to sterile field. 9:02:20 DIAGNOSTIC Multipack 5Fr catheter set (YG2793) opened to sterile field. 9:02:25 Use device set TAUTH PCI 9:02:30 INFLATOR Merit BasixCompak (BI2661) opened to sterile field. 9:02:31 Diprivan 1% (Propofol) 40 mcg/kg/min I.V. ( infusing upon arrival ) was administered by Raghavendra Mccain RN; for sedation; Verbal order read back and verified. 9:02:39 SHEATH 6FR Franklin ([id number]) opened to sterile field. 9:03:54 Fentanyl 150mcg/hr I.V. ( infusing upon arrival ) was administered by Raghavendra Mccain RN; for sedation; Verbal order read back and verified. 9:06:05 Rhythm: sinus bradycardia 9:06:13 Baseline sample Acquired. 9:07:22 Physician arrived 9:07:52 --------ALL STOP TIME OUT------ 9:07:53 Final Timeout: patient, procedure, and site verified with staff and physician. All members of the team are in agreement. 9:07:54 Right groin site verified by team. 9:07:57 Fire Safety Assessment: A--An alcohol-based skin anteseptic being used preoperatively., C--Open oxygen or nitrous oxide is being used., D--An ESU, laser, or fiber-optic light is being used. 9:08:03 Physical assessment completed. ASA score P 2 - A patient with mild systemic disease as per Yordan Sharpe MD. 9:08:09 4) 15-29 Severley reduced kidney function. 9:08:12 Maximum allowable contrast dose (3.7 X eGFR X 0.75)19 ml. 9:08:17 Sedation plan: IV Moderate Sedation Medication:Versed, Fentanyl 9:12:44 Procedure started. 9:12:48 Local anesthetic to right femoral artery with Lidocaine 2% by Yordan Sharpe MD.INITIAL ACCESS ONLY 9:12:55 GUIDE 6FR XBLAD 4.0 catheter ([id number]) opened to sterile field. 9:12:57 GRAPHIX 182cm guide wire ([id number]) opened to sterile field. 9:12:57 GRAPHIX 182cm guide wire ([id number]) opened to sterile field. 9:13:21 A 6 Fr Short sheath was inserted into the Right Femoral artery 9:13:40 Proceeding to intervention. 9:13:47 6 Fr XBLAD 4 guide catheter was inserted over the wire 9:16:11 Heparin Bolus 4000 units I.V. was administered by Raghavendra Mccain RN; for anticoagulation; Verbal order read back and verified. 9:16:25 PT GRAPHIX 182 wire advanced. 9:16:37 2ND GRAPHIX FOR ELIZABETH IN CIRC . 9:16:56 Pre PCI Site: [employer] pLAD has 90% stenosis. 9:18:07 Wire advanced across lesion. 9:18:26 GUIDE 6FR XBLAD 3.5 catheter ([id number]) opened to sterile field. 9:19:09 Place stent Inflation Number: 1 A DIANE RX 3.0 x 15 stent ([id number]) was prepped and advanced across the Prox LAD . The stent was deployed at 21 PAMELA for 0:00 (min:sec) . 9:19:58 Stent catheter was removed intact over wire. 9:20:16 Pre PCI Site: [employer] Circ has 80% stenosis. 9:21:45 Place stent Inflation Number: 1 A DIANE RX 3.0 x 08 stent ([id number]) was prepped and advanced across the Prox CX . The stent was deployed at 19 PAMELA for 0:00 (min:sec) . 9:21:54 Stent catheter was removed intact over wire. 9:21:59 Pre PCI Site: [employer] LMCA has 90% stenosis. 9:22:41 Wire redirected to LMCA. 9:22:55 ELIZABETH WIRE REMOVED. 9:23:29 Inflation number: 1 The stent balloon was then re-inflated across the LMCA to 19 PAMELA for 0:00 (min:sec) . 9:23:35 Stent catheter was removed intact over wire. 9:24:33 Place stent Inflation Number: 2 A DIANE RX 3.5 x 12 stent ([id number]) was prepped and advanced across the LMCA . The stent was deployed at 13 PAMELA for 0:00 (min:sec) . 9:25:29 Stent catheter was removed intact over wire. 9:25:30 Wire removed. 9:25:31 Guide catheter removed. 9:25:34 EXOSEAL 6Fr (EX600) opened to sterile field. 9:25:52 Sheath removed intact; hemostasis achieved with Exoseal to the Right Femoral artery. 9:26:15 Procedure ended.(Physican Out) 9:26:47 Fluoroscopy time 04.00 minutes. 9::52 Fluoroscopy dose: 347 mGy 9::52 Flurop Dose total: 347 9:26:57 Dose Area Product 69841 mGy/cm. 9:27:17 Contrast amount:Isovue 370 55ml. 9:27:23 Maximum allowable dose exceeded? Yes. 9:27:24 Sharps counted by scrub and verified by R.N. 9:27:40 Post-op/insertion site Right Femoral artery dressed using a 4 x 4 and Tegaderm. 9:27:45 Post right femoral artery:stable, soft, clean and dry 9:27:47 Post Procedure Pulses reassessed and unchanged 9:28:12 Post-procedure physical assessment completed. ASA score P 2 - A patient with mild systemic disease as per Yordan Sharpe MD. 9:28:16 Post procedure rhythm: unchanged. 9:28:18 Estimated blood loss: 10 ml 9:28:20 Post procedure instruction explained to patient.Patient verbalizes understanding. 9:28:21 Patient needs reinforcement of post procedure teaching. 9:29:53 Procedure type changed to Cath procedure, Diagnostic procedure, Sedation Charges, Moderate Sedation up to 15 minutes, PCI procedure, Coronary Stent, Coronary Stent Initial, Coronary Stent Initial x2, Hemochron ACT Test 9:29:58 ACT drawn and resulted at 210 seconds. (normal therapeutic range 180-240 seconds). 9:31:15 Procedure and supply charges have been captured, reviewed, submitted and are correct. 9:31:17 [facility] Findings: MVD- PCI performed (see procedure note) 9:31:18 Operative report dictated upon procedure completion. 9:31:19 See physician's report for complete and final results. 9:31:22 Report given to ICU. 9:31:26 Patient transfered to ICU with Bed. 9:31:49 Procedure Complication : No complications 9:31:58 ACC-PCI Only Patient was given prescriptions, or instructed by Yordan Sharpe MD to start/continue the following medications upon discharge: Plavix 9:36:23 Vital chart was stopped 9:36:46 Procedure ended. 9:36:46 Full Disclosure recording stopped 9:36:52 End room use (Document Last) 9:37:05 End room use (Document Last) 9:37:29 End room use (Document Last) Intervention Summary Intervention Notes Time ActionType Lesion and Equipment Used Action# Pressure Duration Attributes 9:19:09 Place stent Prox LAD DIANE RX 3.0 x 1 21 00:00 15 stent ([id number]) 9:21:45 Place stent Prox CX DIANE RX 3.0 x 1 19 00:00 08 stent ([id number]) 9:23:29 Reinflate LMCA DIANE RX 3.0 x 1 19 00:00 stent 08 stent balloon ([id number]) 9:24:33 Place stent LMCA DIANE RX 3.5 x 2 13 00:00 12 stent ([id number]) Device Usage Item Name Manufacture Quantity Catalog Number [facility] Part Current M inimal Lot# / Charge Number Stock Stock Serial# Code ACIST Syringe Acist 1 39122 613253 447482 655508 2 0 (07283) Medical Systems Inc Bag Decanter Microtek 1 311958 60488 506393 5 () Medical Inc. Medline Cath Medline 1 [id number] 125732 14690 631380 5 Pack ([id number]) ACIST Hand Acist 1 06014 256714 225751 165387 5 Control Medical (50868) Systems Inc ACIST Manifold Acist 1 54063 879069 366365 280382 5 (40257) Medical Systems Inc EMERALD Guide Cardinal 1 502-455 063228 369656 532168 5 Wire (502-455) Health DIAGNOSTIC Cardinal 1 NP1042 715540 51499 232605 3 0 Multipack 5Fr Health catheter set (LA1024) INFLATOR Merit Merit 1 BR1603 539461 771787 037069 1 5 Peerio ([id number]) SHEATH 6FR Terumo 1 RXC160 857433 933061 340704 4 0 Franklin (XPQ613) GUIDE 6FR Cardinal 1 26644857 512854 909403 829260 3 XBLAD 4.0 Health catheter (35977841) GRAPHIX 182cm [place] 2 [id number] 487588 248222 483467 5 guide wire Scientific ([id number]) GUIDE 6FR Cardinal 1 [id number] 144427 131507 733197 1 0 XBLAD 3.5 Health catheter (43390915) DIANE RX 3.0 x Medtronic 1 [id number] 327537 4175482 157160 5 [id number] 15 stent ([id number]) DIANE RX 3.0 x Medtronic 1 [id number] 008594 2464498 720677 5 [id number] 08 stent ([id number]) DIANE RX 3.5 x Medtronic 1 [id number] 739744 2182924 361318 5 [id number] 12 stent ([id number]) EXOSEAL 6Fr Cardinal 1 EX600 397103 527738 393940 1 0 (EX600) Health Signature Audit [place] Stage Time Signature Unsigned Intra-Procedure 06/13/2019 Isabell Portillo 9:37:05 AM RT(R) Intra-Procedure 06/13/2019 Raghavendra 9:37:29 AM Kalyn YOUSIF Intra-Procedure 06/13/2019 Yordan Sharpe 9:37:45 AM [place] [id number] [place] [address]
[~2019-06-06 10:53] MED LIST changes: +SENSIPAR30 MG PO
[2019-06-06 11:38] LABS: HEMATOCRIT 46.7 % (42.0-54.0); HEMOGLOBIN 15.1 g/dL (13.5-17.5); MCH 30.4 pg (26.0-34.0); MCHC 32.3 g/dL (31.0-37.0); MCV 94.2 fL (80.0-100.0); PLATELET COUNT 242 10x3/uL (130-400); RBC 4.96 10x6/uL (4.20-6.10); RDW 16.2 % (11.5-14.5); WBC 7.9 10x3/uL (4.8-10.8)
[2019-06-06 11:58] LABS: APTT 25.6 SECONDS (22.8-39.4)
[2019-06-06 11:59] LABS: D-DIMER-QUANTITATIVE 1.88 ug/mLFEU (0.20-0.54); INR 0.98 (0.85-1.17); PROTIME 12.9 SECONDS (11.6-15.0)
[2019-06-06 12:08] LABS: EOSINOPHILS 7 % (0-7); LYMPHOCYTES 5 % (15-50); MONOCYTES 6 % (2-11); NEUTROPHILS 82 % (40-80); PLATELET ESTIMATE NORMAL
[2019-06-06 12:23] LABS: CALC OSMOLALITY 283 mosm/kg (275-300); CALCIUM 8.7 mg/dL (8.5-10.1); CARBON DIOXIDE 30.8 mmol/L (21.0-32.0); CHLORIDE - SERUM 99 mmol/L (98-107); CREATININE - SERUM 5.9 mg/dL (0.6-1.3); GLUCOSE 135 mg/dL (74-106); POTASSIUM - SERUM 4.4 mmol/L (3.5-5.1); SODIUM 140 mmol/L (136-145); UREA NITROGEN 21 mg/dL (7-18); eGFR NON AFRICAN AMERICAN 10 mL/min (90-120)
[2019-06-06 12:40] LABS: ALKALINE PHOSPHATASE 124 U/L (30-120); ALT (SGPT) 35 U/L (10-68); BILIRUBIN - TOTAL 0.77 mg/dL (0.2-1.3); CKMB 6.8 U/L (0.0-3.6); CREATINE KINASE 346 UL (21-232); PRO BNP 10567 pg/mL (0-125); PROTEIN - SERUM 9.2 g/dL (6.4-8.2); TROPONIN-I < 0.017 ng/mL (0.000-0.060)
--- NOTE | 2019-06-06 12:40 | NUR ---
BC'S X 2 DRAWN THEN ABXS INITIATED
--- NOTE | 2019-06-06 14:20 | NUR ---
DR LOAIZA AT . REPEAT ABG'S DRAWN. NO CHANGE. DR LOAIZA SPEAKING WITH S/O RE: INTUBATION D/T AMS. S/O OK WITH POC. MOVED TO T4 AND PREPARED FOR INTUBATION. @ 1425 RT, KALI FANG, RN AT BS. PREMEDICATED WITH VERSED AND SUCC THEN INTUBATED WITH 7.5 FR SECURED 24 CM AT THE LIP. + BS, + ETCO2 COLOR CHANGE PCXR ORDERED. INTUBATION TIME= 1440 @1445 16 FR NGT PLACED WITH LARGE AMT CLEAR GASTRIC CONTENTS RTND. PALCEMENT CKED PER AUS AND GASTRIC CONTENT. PT LEANNA WELL PCXR COMPLETED
--- NOTE | 2019-06-06 15:15 | NUR ---
NO FC PLACED, PT S/O REPORTS PT MAKES NO URINE
--- NOTE | 2019-06-06 15:24 | NUR ---
BP LOW 81/24 PROPOFOL STOPPED AND FLD BOLUS INTIIATED
--- NOTE | 2019-06-06 15:25 | NUR ---
DR GONZALES NOTIFIED OF LOW BP. VO TO D/C PROPOFOL AND START FENTANYL GTT.
--- NOTE | 2019-06-06 16:41 | NUR ---
RTND FROM CT. VSS. FAMILY AT BS
--- NOTE | 2019-06-06 17:30 | NUR ---
report called to yamilex pierce
--- NOTE | 2019-06-06 18:50 | NUR ---
Received pt to room 2310 via stretcher from the ED. Pt is intubated and sedated with bilateral wrist restraints on. Attached to monitors all monitors are on and working. Admission information obtained from family, No s/s of distress noted. Will continue to monitor.
--- NOTE | 2019-06-06 18:50 | NUR ---
BS REPORT TO CHIROPRACTOR SOLE PRACTITIONER
--- NOTE | 2019-06-06 18:50 | NUR ---
TRANSPORTED TO ICU WITH RT AND RX X2, CM. CONDITION STABLE
--- NOTE | 2019-06-06 18:50 | NUR ---
FENTANYL GTT INFUSING @ 25 MCG AND NS INFUSING @ 50 ML/HR UPON TRANSPORT TO ICU
--- NOTE | 2019-06-06 21:00 | NUR ---
Pt is resting in bed intubated and sedated. Repositioned for comfort. Oral care performed. No s/s of distress. Will continue to monitor.
--- NOTE | 2019-06-06 23:00 | NUR ---
Reassessment completed, see flowsheet for details. Pt is laying in bed intubated and sedated. No needs noted. No s/s of distress. Repositioned for comfort. Oral care performed. Will continue to monitor.
[2019-06-07] VITALS (24 sets, daily range): BP systolic 89–173; BP diastolic 29–101; BMI 36.5
--- NOTE | 2019-06-07 01:00 | NUR ---
Pt is laying in bed intubated and sedated. Repositioned for comfort. Oral care performed. No further needs noted. No s/s of distress noted. Will continue to monitor.
--- NOTE | 2019-06-07 03:00 | NUR ---
Reassessment completed, see flowsheet for details. Pt is laying in bed intubated and sedated. Repositioned for comfort. Oral care performed. No s/s of distress noted. Will continue to monitor.
[2019-06-07 04:53] LABS: HEMATOCRIT 39.7 % (42.0-54.0); HEMOGLOBIN 12.9 g/dL (13.5-17.5); MCH 30.5 pg (26.0-34.0); MCHC 32.5 g/dL (31.0-37.0); MCV 93.9 fL (80.0-100.0); MEAN PLATELET VOLUME 10.9 fL (7.4-10.4); PLATELET COUNT 201 10x3/uL (130-400); RBC 4.23 10x6/uL (4.20-6.10); RDW 15.7 % (11.5-14.5)
[2019-06-07 05:07] LABS: ANION GAP 17.7 mmol/L (8-16); CALCIUM 8.6 mg/dL (8.5-10.1); CARBON DIOXIDE 23.3 mmol/L (21.0-32.0)
[2019-06-07 05:09] LABS: CREATININE - SERUM 7.8 mg/dL (0.6-1.3)
[2019-06-07 06:54] LABS: LYMPHOCYTES 12 % (15-50); MONOCYTES 10 % (2-11); NEUTROPHILS 78 % (40-80); PLATELET ESTIMATE NORMAL
--- NOTE | 2019-06-07 07:21 | NUR ---
UP IN BED ON VENT AT THIS TIME. VSS. NO ACUTE DISTRESS NOTED. PT OPENS EYES AND FOLLOWS COMMANDS. TURNED Q2H. ORAL CARE PROVIDED Q2H. WILL CONTINUE PLAN OF CARE.
--- NOTE | 2019-06-07 08:04 | NUR ---
NOTED APPEARED TO HAVE SOME ST ELEVATION TO TELEMETRY, PER ORDERS EKG OBTAINED AND CARIDAC ENZYMES ORDERED.
--- NOTE | 2019-06-07 08:57 | NUR ---
PLACED PT ON PS TRIAL @8:40 PT FAILED
[2019-06-07 09:20] LABS: CKMB 2.9 U/L (0.0-3.6)
[2019-06-07 09:35] LABS: CREATINE KINASE 1206 UL (21-232)
[2019-06-07 09:37] LABS: TROPONIN-I 0.125 ng/mL (0.000-0.060)
--- NOTE | 2019-06-07 10:04 | NUR ---
DR LEI PAGED TO NOTIFY OF ELEVATED TROPONIN LEVEL.
--- NOTE | 2019-06-07 10:11 | NUR ---
PER DR WHATLEY OBTAIN REPEAT TROPONIN IN 6H AND ORDER ECHO SINCE TROPONIN LEVEL IS UP.
--- NOTE | 2019-06-07 12:48 | NUR ---
1230: BLOOD SUGAR CHECK NOTED AT 47 THIS TIME; PRN/PROTOCOL 1/2 AMP D50 ADMIN. 1248: BS RECHECK NOTED AT 83. WILL REASSESS IN 30 MIN TO SEE IF BS HOLDS. VSS. PT FAMILY AT BEDSIDE. PT WAKES UP AND FOLLOWS COMMANDS. WILL CONTINUE PLAN OF CARE.
--- NOTE | 2019-06-07 12:56 | NUR ---
STILL NO CALLBACK FROM DR LEI, OFFICE CALLED, THEY STATED DR STEINER IS DIAMOND POWDER TECHNICIAN; PHYSICIAN PAGED. WAITING FOR CALLBACK.
--- NOTE | 2019-06-07 13:21 | NUR ---
DR STEINER HERE, ORDERS RECIEVED.
--- NOTE | 2019-06-07 14:46 | NUR ---
NOTED ORDERS WHICH HAD BEEN RECIEVED FOR IN/OUT CATH. DR STEINER NOTIFIED THAT PT IS ANURIC AND DOES NOT URINATE ANYMORE PER PTS WHO STATES IT HAS BEEN A WHILE SINCE HE HAS URINATED. NO ORDERS RECIEVED TO CANCEL ORDER, THEREFORE IN/OUT CATH PERFORMED VIA STERILE PROCEDURE WITH NO URINE COLLECTED/OBTAINED.
--- NOTE | 2019-06-07 14:48 | NUR ---
CHG BATH PROVIDED AT THIS TIME WITH TOTAL LINEN CHANGE. VSS. NO ACUTE DISTRESS NOTED. WILL CONTINUE PLAN OF CARE.
[2019-06-07 15:05] LABS: CKMB 3.1 U/L (0.0-3.6)
[2019-06-07 15:07] LABS: CREATINE KINASE 1435 UL (21-232); TROPONIN-I 0.195 ng/mL (0.000-0.060)
--- NOTE | 2019-06-07 15:13 | NUR ---
BLOOD GLUCOSE RECHECKED, NOTED AT 60, 1/2 AMP D50 ADMIN; WILL REASSESS IN AROUND 45 MIN.
--- NOTE | 2019-06-07 15:16 | NUR ---
TROPONIN LEVELS NOTED TRENDING UP. CARDIOLOGY PAGED TO NOTIFY OF THIS. WAITING FOR CALLBACK.
--- NOTE | 2019-06-07 15:24 | NUR ---
PER DR MENDENHALL; KEEP PT NPO AFTER MIDNIGHT FOR HEART CATH TOMORROW.
--- NOTE | 2019-06-07 16:10 | NUR ---
FAMILY AT BEDSIDE AT THIS TIME. VSS. CONSENTS SIGNED. PTS FAMILY DENIES ANY FURTHER QUESTIONS OR CONCERNS AT THIS GIVEN TIME. WILL CONTINUE PLAN OF CARE.
--- NOTE | 2019-06-07 16:30 | NUR ---
BLOOD SUGAR RECHECK IS 70. WILL CONTINUE TO REASSESS BLOOD GLUCOSE.
--- NOTE | 2019-06-07 17:30 | MORECARE ---
CASE MANAGEMENT DISCHARGE SUMMARY PATIENT: JASE MORGAN UNIT: [id number] ADM DATE: 06/06/19 AGE: 63 : 55 SEX: M ROOM/BED: D.2310 AUTHOR: LANCE ROSEN PHYSICIAN: REFERRING PHYSICIAN: PEREZ STEINER MD DATE OF SERVICE: 06/07/19 Discharge Plan Patient Name: JASE [facility]ORGAN [facility] [facility] 1955 Planned Disposition: Home Anticipated Discharge Date: Discharge Date: Expected LOS: Initial Reviewer: [email or web address] Initial Review Date: 06/07/2019 Generated: 06/07/19 6:29 pm DCPIA - Discharge Planning Initial Assessment Updated by [email or web address]: Jen Corona on 06/07/19 5:26 pm * Is the patient Alert and Oriented? Yes * How many steps to enter\exit or inside your home? * PCP OBDULIA * [facility]acy [facility] * Preadmission Environment Home with Family * ADLs Independent * Equipment None * Other Equipment UNCERTAIN? * List name and contact numbers for known caregivers / representatives who currently or will assist patient after discharge: JAMES MORGAN - SPOUSE - [phone] * Verbal permission to speak to the caregivers and representatives has been obtained from the patient. Yes * Community resources currently utilized None * Additional services required to return to the preadmission environment? No * Can the patient safely return to the preadmission environment? Yes * Has this patient been hospitalized within the prior 30 days at any hospital? No Patient Name: JASE MORGAN Page [id number] at 1730 All edits/amendments must be made on the electronic document DICTATION DATE: 06/07/191728 NEWSPAPER DISTRIBUTOR SUPERVISOR: RICHMOND 06/07/191728 RPT#: [id number] DC DATE: STATUS: ADM IN [facility] [address] [place] [address] END OF REPORT
--- NOTE | 2019-06-07 17:48 | NUR ---
NO ACUTE DISTRESS NOTED AT THIS TIME. VSS. PT WAKES UP, FOLLOWS COMMANDS, AND ANSWERS YES/NO QUESTIONS. PT DENIES ANY DISCOMFORTS. VSS. WILL CONTINUE PLAN OF CARE.
--- NOTE | 2019-06-07 18:06 | MORECARE ---
CASE MANAGEMENT DISCHARGE SUMMARY PATIENT: JASE MORGAN UNIT: [id number] ADM DATE: 06/06/19 AGE: 63 : 55 SEX: M ROOM/BED: D.2310 AUTHOR: JESSIKA,DOC PHYSICIAN: REFERRING PHYSICIAN: PEREZ STEINER MD DATE OF SERVICE: 06/07/19 Discharge Plan Patient Name: JASE MORGAN Facility: [facility]:[place] : 1955 Planned Disposition: Home Anticipated Discharge Date: Discharge Date: Expected LOS: Initial Reviewer: [email or web address] Initial Review Date: 06/07/2019 Generated: 06/07/19 7:05 pm Comments DCP- Discharge Planning Updated by [email or web address]: Jen Corona on 06/07/19 4:[address] Patient Name: JASE MORGAN Admission Status: ER Accout number: [id number] Admission Date: 06-06-2019 : 1955 Admission Diagnosis: Attending: PEREZ STEINER Current LOS: 1 Anticipated DC Date: Planned Disposition: Home Primary Insurance: MEDICARE A & B Discharge Planning Comments: CM met with patient's daughter to complete initial dc planning assessment. CM educated patient on the CM role and verbal consent given by patient to complete assessment. Patient is currently sedated on vent. CM verified patient's address, phone number, and emergency contact phone numbers. Patient lives at home with his spouse. At discharge patient plans to return home and feels that she may require some assistance. CM discussed availability of home health, rehab services, and medical equipment. Patient's daughter is uncertain of patient's medical equipment at home. Patient does have hemodialysis MWF in [place] @ 0600. CM will continue to follow and will assist as needed with dc plans/needs. Run Lead: Jen Corona DCPIA - Discharge Planning Initial Assessment Updated by [email or web address]: Jen Corona on 06/07/19 5:26 pm * Is the patient Alert and Oriented? Yes * How many steps to enter\exit or inside your home? * PCP OBDULIA * [facility] * Preadmission Environment Home with Family * ADLs Independent * Equipment None * Other Equipment UNCERTAIN? * List name and contact numbers for known caregivers / representatives who currently or will assist patient after discharge: JAEMS MORGAN - SPOUSE - [phone] * Verbal permission to speak to the caregivers and representatives has been obtained from the patient. Yes * Community resources currently utilized None * Additional services required to return to the preadmission environment? No * Can the patient safely return to the preadmission environment? Yes * Has this patient been hospitalized within the prior 30 days at any hospital? No Last DP export: 06/07/19 4:30 p Patient Name: JASE MORGAN Page [phone] at 1806 All edits/amendments must be made on the electronic document DICTATION DATE: 06/07/191804 ELECTORATE OFFICER: RICHMOND 06/07/191804 RPT#: [id number] DC DATE: STATUS: ADM IN [facility] [address] [place] [address] END OF REPORT
--- NOTE | 2019-06-07 18:37 | NUR ---
BLOOD GLUCOSE 59; 1/[address] OBDULIA PBAON.
--- NOTE | 2019-06-07 19:20 | NUR ---
BEDSIDE SHIFT REPORT COMPLETED - SHIFT ASSESSMENT COMPLETED SEE FLOWSHEET
--- NOTE | 2019-06-07 19:48 | NUR ---
DR STEINER RETURNED CALL - NEW ORDERS RECEIVED
--- NOTE | 2019-06-07 19:51 | NUR ---
DR STEINER RETURNED CALL AT THIS TIME NEW ORDERS RECEIVED
[2019-06-07 20:20] LABS: CKMB 3.7 U/L (0.0-3.6)
[2019-06-07 20:27] LABS: CREATINE KINASE 1926 UL (21-232)
--- NOTE | 2019-06-07 20:47 | NUR ---
paged wardsperson at this time
--- NOTE | 2019-06-07 21:30 | NUR ---
DR STEINER RETURNED CALL NEW ORDERS RECEIVED
--- NOTE | 2019-06-07 23:15 | NUR ---
REASSESSMENT COMPLETED SEE FLOWSHEET
[2019-06-08] VITALS (29 sets, daily range): BP systolic 90–132; BP diastolic 10–98; Ht 172.7 cm; Wt 99.7 kg
--- NOTE | 2019-06-08 01:39 | NUR ---
PT RESTING COMFORTABLY ON VENTILATOR, 2 SIDE RAILS UP, CBIR - MINIMAL SEDATION VSS, TEMP 101.2 - WILL CONTINUE TO MONITOR
[2019-06-08 01:53] LABS: HEMATOCRIT 39.6 % (42.0-54.0); HEMOGLOBIN 12.6 g/dL (13.5-17.5); MCH 30.4 pg (26.0-34.0); MCHC 31.8 g/dL (31.0-37.0); MCV 95.4 fL (80.0-100.0); MEAN PLATELET VOLUME 11.6 fL (7.4-10.4); PLATELET COUNT 199 10x3/uL (130-400); RBC 4.15 10x6/uL (4.20-6.10); RDW 15.9 % (11.5-14.5)
[2019-06-08 01:55] LABS: WBC 6.4 10x3/uL (4.8-10.8)
[2019-06-08 02:23] LABS: CALCIUM 8.1 mg/dL (8.5-10.1); CARBON DIOXIDE 24.5 mmol/L (21.0-32.0); CHLORIDE - SERUM 100 mmol/L (98-107); CKMB 2.5 U/L (0.0-3.6); POTASSIUM - SERUM 4.6 mmol/L (3.5-5.1); SODIUM 137 mmol/L (136-145)
[2019-06-08 02:25] LABS: CALC OSMOLALITY 291 mosm/kg (275-300); CREATINE KINASE 1720 UL (21-232); CREATININE - SERUM 9.8 mg/dL (0.6-1.3); GLUCOSE 194 mg/dL (74-106); TROPONIN-I 0.274 ng/mL (0.000-0.060); UREA NITROGEN 49 mg/dL (7-18); eGFR NON AFRICAN AMERICAN 6 mL/min (90-120)
[2019-06-08 02:41] LABS: EOSINOPHILS 1 % (0-7); LYMPHOCYTES 15 % (15-50); MONOCYTES 10 % (2-11); NEUTROPHILS 72 % (40-80); PLATELET ESTIMATE NORMAL
--- NOTE | 2019-06-08 03:45 | NUR ---
REASSESSMENT COMPLETED SEE FLOWSHEET
--- NOTE | 2019-06-08 04:55 | NUR ---
PT RESTING COMFORTABLY ON THE VENT VSS CPOC
[2019-06-08 05:47] LABS: ANION GAP 20.5 mmol/L (8-16); CALCIUM 8.2 mg/dL (8.5-10.1); CARBON DIOXIDE 21.9 mmol/L (21.0-32.0); CREATININE - SERUM 10.3 mg/dL (0.6-1.3); POTASSIUM - SERUM 4.4 mmol/L (3.5-5.1)
--- NOTE | 2019-06-08 06:30 | NUR ---
PREP, CLIP, CHG BATH COMPLETED AT THIS TIME
--- NOTE | 2019-06-08 06:56 | NUR ---
Nutrition follow-up: Pt intubated, sedated Remains NPO Labs reviewed Wt: 245# Will wait for oderr to begin TF Recommend Nepro; see previous note for rate RDN following
--- NOTE | 2019-06-08 07:00 | NUR ---
BEDISDE REPORT RECEIVED. SHIFT ASSESSMENT COMPLETED PER FLOWSHEET, SEE FLOWSHEET FOR INFORMAION. NO ACUTE NEEDS OR DISTRESS NOTED AT THIS TIME. VSS. WILL CONT TO MONITOR.
--- NOTE | 2019-06-08 09:00 | NUR ---
RT AND FAMILY AT BEDSIDEM, WILL CONT TO MONITOR.
--- NOTE | 2019-06-08 10:38 | NUR ---
INCREASED RR TO 20 PER ORDER
--- NOTE | 2019-06-08 11:00 | NUR ---
REASSESSMENT COMPLETED PER FLOWSHEET, SEE FLOWSHEET FOR INFORMATION. ORAL AND INLINE SUCTIONED, COPIOUS AMOUNTS OF CLEAR/WHITE SECRETIONS NOTED. NO ACUTE NEEDS OR DISTRESS NOTED AT THIS TIME. WILL CONT TO MONITOR.
--- NOTE | 2019-06-08 12:42 | NUR ---
PT TAKEN TO WHOLESALE PARTS SALESPERSON. WILL CONT TO MONITOR.
--- NOTE | 2019-06-08 13:52 | NUR ---
RECEIVED REPORT FROM LEXY YOUSIF FROM AUTO PAINTER HELPER. WILL CONT TO MONITOR.
--- NOTE | 2019-06-08 14:03 | NUR ---
PT ARRIVED IN ROOM VIA BED, VSS. NO S/S OF HEMATOMA NOTED IN RIGHT GROIN. DISTAL PULSES PALABLE. WILL CONT TO MONITOR.
--- NOTE | 2019-06-08 15:00 | NUR ---
REASSESSMENT COMPLETED PER FLOWSHEET, SEE FLOWSHEET FOR INFORMATION. NO ACUTE NEEDS OR DISTRESS NOTED AT THIS TIME. VSS. WILL CONT TO MONITOR.
--- NOTE | 2019-06-08 16:42 | CN ---
PATIENT NAME:JASE GEORGE MEDICAL RECORD: [id number] : 55 LOCATION:[id number] ADMIT DATE: 06/06/19 ACCOUNT: [id number] CONSULTING PHYSICIAN: LORA MENDENHALL MD REFERRING PHYSICIAN: PEREZ STEINER MD DATE OF CONSULTATION: 06/08/2019 DIAGNOSES: 1. Non-Q-wave myocardial infarction. 2. End-stage renal failure, dialysis. 3. Cardiomyopathy. 4. Respiratory failure. 5. Hypertension. 6. Hyperlipidemia. HISTORY OF PRESENT ILLNESS: Mr. George is a gentleman known to us with a past history of coronary artery disease, previous cardiac stents, who presents with respiratory failure. His last ejection fraction we have was 30%. This is before this hospitalization and presentation. His chest x-ray, however, was not compatible with pulmonary edema and his troponin has elevated. It is unknown if he was complaining of chest pain prior to admission as he presented to the Emergency Room, had to be intubated relatively emergently. PHYSICAL EXAMINATION: CONSTITUTIONAL/GENERAL APPEARANCE: Well nourished, well developed, appears stated age. EYES: Lids and conjunctivae noninjected. No discharge. No pallor. ENT: Lips within normal limit. No cyanosis. No pallor. NECK: Carotid arteries, bilateral normal upstroke. No bruits. No thrills. No jugular venous pressure or distention. CERVICAL LYMPH NODES: Nontender. Nonenlarged. THYROID: Not enlarged. No nodules. CARDIOVASCULAR: Precordial exam, nondisplaced. No heaves or pericardial thrills. Rate and rhythm, regular. Heart sounds, normal S1, normal S2. No S3, no gallop, no rub. Systolic murmur, not heard. Diastolic murmur, not heard. RESPIRATORY: Respiratory effort, unlabored. Normal curvature. No thoracic deformity. No chest wall tenderness. Percussion, resonant. Auscultation, clear. No wheezes, no rales, no rhonchi. ABDOMEN: Soft, nondistended, nontender. No abdominal pain, no vomiting and normal appetite. MUSCULOSKELETAL: No joint tenderness, normal gait, normal tone. SKIN: Warm and dry. OVERALL IMPRESSION: Non-Q-wave myocardial infarction. At this time, we will proceed with coronary angiography. Further care depends upon the findings of the angiography. TRANSINT:[id number] Voice Confirmation ID: [id number] DOCUMENT ID: [id number] CONSULT REPORT [id number] JASE GEORGE JEFFREY MD at 1642 CC: [id number] DICTATION DATE: 06/08/19911 TATTOOER: 06/08/[address] [facility] [address] [id number]
--- NOTE | 2019-06-08 16:42 | EC ---
PATIENT:JASE MORGAN DATE OF SERVICE: 06/06/19 SEX: M MEDICAL RECORD: [id number] DATE OF : 55 LOCATION:[id number] AGE OF PATIENT: 63 ADMISSION DATE: 06/06/19 REFERRING PHYSICIAN: INTERPRETING PHYSICIAN: LORA SHARPE MD ECHOCARDIOGRAM REPORT ECHO CHARGES 4 ECHO COMPLETE Date: 06/07/19 CLINICAL DIAGNOSIS: ELEVATED TROPONIN ECHOCARDIOGRAPHIC MEASUREMENTS (adult normal given) AC root (d.<3.7cm) 3.3 cm LV Septum d (<1.2 cm> 1.7 cm Valve Excursion 1.8 cm LV Septum (systole) 2.0 cm Left Atria (s.<4.0cm> 4.0 cm LVPW d(<1.2cm) 1.6 cm RV (d.<2.3cm) 2.9 cm LVPW (sytole) 1.9 cm LV diastole(<5.6CM) 5.2 cm MV E-F(>70mm/sec) cm LV systole 3.7 cm LVOT Diameter 2.0 cm MV exc.(>10mm) cm Est.ejection fraction (50-75%) % DOPPLER: LVIT cm/sec A 165 cm/sec E 105 cm/sec LA cm/sec RVSP 48.3 mmHg LVOT 117 cm/sec AOP1/2T m/s Asc. Ao 206 cm/sec RVOT 59.0 cm/sec RA cm/sec PA 100 cm/sec AV Gradient Peak 17.0 mmHg AV Mean 8.9 mmHg AV Area 1.7 cm MV Gradient Peak 14.0 mmHg MV Mean 3.8 mmHg MV Area cm COMMENTS: Adult Family Home Program Manager: 1 JITENDRA BUNCHOE Forklift Material Handler: 1 Dr. Sharpe TAPE# PACS Pericardial Effusion N DATE OF SERVICE: FINDINGS: 1. Left ventricular chamber size is mildly dilated. Left ventricular systolic function is moderately reduced at 30%. 2. Left atrium is upper limits of normal at 4.0 cm. Right atrium and right ventricle chamber sizes are mildly dilated. 3. Valvular structures: Aortic valve demonstrates calcific aortic sclerosis, but no significant aortic stenosis. The remaining valvular structures have normal structure and motion. ECHOCARDIOGRAM REPORT [id number] JASE OMRGAN 4. Doppler interrogation reveals only trace mitral regurgitation and trace tricuspid regurgitation, no other valvular insufficiency or stenosis. Pulmonary systolic pressure is elevated at 50 mmHg. 5. No evidence of pericardial effusion or left ventricular thrombus. TRANSINT:[id number] Voice Confirmation ID: [id number] DOCUMENT ID: [id number] LORA SHARPE MD at 1642 CC: [id number] DICTATION DATE: 06/08/19 0647 SHIPPING AGENT: 06/08/19 0826 ADM IN [facility] [address] [id number]
--- NOTE | 2019-06-08 17:00 | NUR ---
PT RESTING IN BED WITH EYES OPEN. WILL CONT TO MONITOR. VSS.
--- NOTE | 2019-06-08 18:06 | NUR ---
STARTED TUBE FEEDINGS. WILL CONT TO MONITOR.
--- NOTE | 2019-06-08 19:00 | NUR ---
REPORT RECEIVED. CM READING SR WITHOUT ECTOPY ALARMS ON AND AUDIBLE. PT FOLLOWS COMMANDS AND DENIES PAIN AT THIS TIME ORAL CARE REPOSOTIONED. SEE RT NOTES FOR VENT CHANGES
--- NOTE | 2019-06-08 21:00 | NUR ---
FAMILY AT BEDSIDE FOR VISITATION UPDATE GIVEN QUESTIONS ANSWEREED
[2019-06-08 21:06] LABS: SPE - A/G RATIO 0.9 (0.7-1.7); SPE - ALBUMIN 3.1 g/dL (2.9-4.4); SPE - ALPHA-1 GLOBULIN 0.2 g/dL (0.0-0.4); SPE - ALPHA-2 GLOBULIN 0.7 g/dL (0.4-1.0); SPE - BETA GLOBULIN 1.2 g/dL (0.7-1.3); SPE - GAMMA GLOBULIN 1.3 g/dL (0.4-1.8); SPE - M-SPIKE Not Observed g/dL (Not Observed); SPE - TOTAL PROTEIN 6.5 g/dL (6.0-8.5)
[2019-06-09] VITALS (24 sets, daily range): BP systolic 86–150; BP diastolic 22–97
--- NOTE | 2019-06-09 01:00 | NUR ---
PARTIAL BED BATH GIVEN SUCTIONED ORALLY AND VIA ETT MODERATE AMOUNT OF CLEAR SECRETIONS
--- NOTE | 2019-06-09 03:00 | NUR ---
REASSESSMENT COMPLETE ORAL CARE AND REPOSITIONED. CPOC VSS AT THIS TIME
[2019-06-09 04:01] LABS: BASOPHILS 0.2 % (0-2); EOSINOPHILS 4.9 % (0-7); HEMATOCRIT 37.5 % (42.0-54.0); HEMOGLOBIN 12.1 g/dL (13.5-17.5); IMMATURE GRANULOCYTES 0.2 % (0-5); LYMPHOCYTES 16.6 % (15-50); MCH 30.1 pg (26.0-34.0); MCHC 32.3 g/dL (31.0-37.0); MEAN PLATELET VOLUME 10.4 fL (7.4-10.4); MONOCYTES 19.1 % (2-11); PLATELET COUNT 185 10x3/uL (130-400); RBC 4.02 10x6/uL (4.20-6.10); RDW 15.6 % (11.5-14.5); WBC 6.1 10x3/uL (4.8-10.8)
[2019-06-09 04:04] LABS: MCV 93.3 fL (80.0-100.0)
[2019-06-09 04:29] LABS: ANION GAP 15.8 mmol/L (8-16); CALCIUM 8.1 mg/dL (8.5-10.1); CARBON DIOXIDE 24.9 mmol/L (21.0-32.0); CREATININE - SERUM 8.4 mg/dL (0.6-1.3); POTASSIUM - SERUM 3.7 mmol/L (3.5-5.1); VANCOMYCIN - RANDOM 19.6 ug/mL (10.0-20.0)
--- NOTE | 2019-06-09 07:51 | NUR ---
LYING IN BED ON VENT AT THIS TIME. PT WAKES UP AND FOLLOWS COMMANDS, ABLE TO REQUEST ITEMS SUCH TO BE SUCTIONED. VSS. TURNED Q2H. ORAL CARE PROVIDED Q2H. WILL CONTINUE PLAN OF CARE.
--- NOTE | 2019-06-09 09:52 | NUR ---
NO ACUTE DISTRESS NOTED AT THIS TIME. PT HAS BEEN ON CPAP TRIAL SINCE AROUND 0900, TOLERATING WELL. FAMILY AT BEDSIDE. WILL CONTINUE PLAN OF CARE.
--- NOTE | 2019-06-09 11:53 | NUR ---
NO ACUTE DISTRESS NOTED. VSS. STILL ON CPAP. WILL CONTINUE PLAN OF CARE.
--- NOTE | 2019-06-09 13:22 | NUR ---
NO ACUTE DISTRESS NOTED. NO CHANGE. VSS. WILL CONTINUE PLAN OF CARE.
--- NOTE | 2019-06-09 15:22 | NUR ---
PT AWAKE ON VENT, REQUESTED TO BE SUCTIONED. SUCTIONING PROVIDED ALONG WITH ORAL CARE IS PROVIDED Q2H. REPOSITIONING ALSO PROVIDED AND IS PROVIDED Q2H. WILL CONTINUE PLAN OF CARE.
--- NOTE | 2019-06-09 17:24 | NUR ---
NO AUCTE DISTRESS NOTED. PT LYING IN BED ON VENT. TURNED Q2H AND ORAL CARE PRODVIDED Q2H. VSS. WILL CONTINUE PLAN OF CARE.
--- NOTE | 2019-06-09 19:00 | NUR ---
REPORT RECEIVED. INITIAL ASSESSMENT COMPLETE SEE FLOWSHEET. PT FOLLOWS COMMANDS NODS HEAD TO QUESTIONS LIGHT FENTANYL SEDATION POSSIBLE EXTUBATE TOMORROW. CM READING SR WITHOUT ECTOPY ALARMS ON AND AUDIBLE. ORAL CARE REPOSITIONED CPOC
--- NOTE | 2019-06-09 20:00 | NUR ---
FAMILY AT BEDSIDE FOR VISITATION UPDATE GIVEN AND QUESTIONS ANSWERED.
--- NOTE | 2019-06-09 23:00 | NUR ---
REASSESSMENT COMPLETE SEE FLOWSHEET CPOC
[2019-06-10] VITALS (24 sets, daily range): BP systolic 11–152; BP diastolic 30–94
--- NOTE | 2019-06-10 01:00 | NUR ---
SUCTIONED MODERATE AMOUNT CLEAR SECRETIONS ORALLY
--- NOTE | 2019-06-10 03:40 | NUR ---
PT BP DOWN TO 80-90 SYSTOLIC TUBE FEED PLACED ON HOLD HEAD OF BED DOWN WILL CONT TO MONITIOR
--- NOTE | 2019-06-10 03:57 | NUR ---
PAGED DR STEINER
[2019-06-10 04:28] LABS: BASOPHILS 0.1 % (0-2); EOSINOPHILS 4.3 % (0-7); HEMATOCRIT 36.3 % (42.0-54.0); HEMOGLOBIN 11.8 g/dL (13.5-17.5); IMMATURE GRANULOCYTES 0.1 % (0-5); LYMPHOCYTES 11.5 % (15-50); MCHC 32.5 g/dL (31.0-37.0); MCV 92.4 fL (80.0-100.0); MEAN PLATELET VOLUME 11.8 fL (7.4-10.4); MONOCYTES 14.4 % (2-11); NEUTROPHILS 69.6 % (40-80); PLATELET COUNT 184 10x3/uL (130-400); RBC 3.93 10x6/uL (4.20-6.10); RDW 15.5 % (11.5-14.5); WBC 6.7 10x3/uL (4.8-10.8)
[2019-06-10 04:56] LABS: ANION GAP 18.5 mmol/L (8-16); CARBON DIOXIDE 20.6 mmol/L (21.0-32.0); CREATININE - SERUM 10.2 mg/dL (0.6-1.3); POTASSIUM - SERUM 4.1 mmol/L (3.5-5.1); VANCOMYCIN - RANDOM 18.3 ug/mL (10.0-20.0)
[2019-06-10 04:58] LABS: CALCIUM 11.7 mg/dL (8.5-10.1)
--- NOTE | 2019-06-10 05:45 | NUR ---
DR STEINER CALLED BACK INFORMED OF PT HYPOTENIVE HE ORDERED 250 CC BOLUS ORDERED AND GIVEN
--- NOTE | 2019-06-10 08:41 | NUR ---
AWAKE ON VENT AT THIS TIME. VSS. NO ACUTE DISTRESS NOTED. PT FOLLOWS COMMANDS AND ABLE TO NOTIFY STAFF OF NEEDS. PT TURNED Q2H. ORAL CARE PROVIDED Q2H. WILL CONTINUE PLAN OF CARE.
--- NOTE | 2019-06-10 10:40 | NUR ---
CALM ON CPAP TRIAL AT THIS TIME, TOLERATING WELL AND PT IS CALM. VSS. NO ACUTE DISTRESS NOTED. WILL CONTINUE PLAN OF CARE.
--- NOTE | 2019-06-10 12:38 | NUR ---
FAMILY AT BEDSIDE AT THIS TIME. VSS. NO ACUTE DISTRESS NOTED. PT TURNED Q2H. ORAL CARE PROVIDED Q2H AND PRN. WILL CONTINUE PLAN OF CARE.
--- NOTE | 2019-06-10 13:35 | NUR ---
DR WHATLEY PAGED REGARING ABG RESULTS.
--- NOTE | 2019-06-10 14:37 | NUR ---
CHG BATH PROVIDED AT THIS TIME. TOTAL LINEN CHANGE PROVIDED. FLACO CARE PROVIDED. SUCTIONING PROVIDED. VSS. WILL CONTINUE PLAN OF CARE.
--- NOTE | 2019-06-10 15:45 | NUR ---
DR WHATLEY PAGED AGAIN REGARDING ABG RESULTS SINCE NO CALLBACK RECIEVED EARLIER. PER DR WHATLEY, PLACE PT BACK ON AC VENT SETTINGS TO LET PT REST. RESPIRATORY THERAPIST NOTIFIED. VSS. WILL CONTINUE PLAN OF CARE.
--- NOTE | 2019-06-10 16:03 | NUR ---
PT OXYGEN SATURATION DESAT TO 86-89% WITH GOOD WAVEFORM SUCTIONING PROVIDED, OXYGEN SATURATION INCREASED TO 96% WITH GOOD WAVEFORM, PT WAKES UP AND ANSWERS YES/NO QUESTIONS. PT ALSO FOLLOWS COMMANDS. WILL CONTINUE PLAN OF CARE.
--- NOTE | 2019-06-10 17:11 | NUR ---
LYING IN BED ON VENT AT THIS TIME. NO ACUTE DISTRESS NOTED. VSS. PT RESTING CALMLY WITH EYES CLOSED, OPENS EYES WHEN SPOKEN TO. FENTANYL BREAD ROOM HAND CURRENTLY OFF SINCE PT IS RESTING WITH EYES CLOSED AND IS CALM. WILL CONTINUE PLAN OF CARE.
--- NOTE | 2019-06-10 20:00 | NUR ---
FAMILY AT BEDSIDE FOR VISITATION
--- NOTE | 2019-06-10 23:00 | NUR ---
REASSESSMENT COMPLETE NO CHANGES CPOC
[2019-06-11] VITALS (20 sets, daily range): BP systolic 100–155; BP diastolic 29–89
--- NOTE | 2019-06-11 03:00 | NUR ---
REASSESSMENT COMPLETE PT DENIES PAIN NO CHANGES CPOC
[2019-06-11 04:51] LABS: BASOPHILS 0.1 % (0-2); EOSINOPHILS 3.9 % (0-7); HEMATOCRIT 33.5 % (42.0-54.0); HEMOGLOBIN 11.2 g/dL (13.5-17.5); IMMATURE GRANULOCYTES 0.1 % (0-5); LYMPHOCYTES 12.3 % (15-50); MCH 30.2 pg (26.0-34.0); MCHC 33.4 g/dL (31.0-37.0); MEAN PLATELET VOLUME 11.1 fL (7.4-10.4); NEUTROPHILS 69.6 % (40-80); PLATELET COUNT 195 10x3/uL (130-400); RBC 3.71 10x6/uL (4.20-6.10); RDW 15.5 % (11.5-14.5); WBC 6.9 10x3/uL (4.8-10.8)
[2019-06-11 05:00] LABS: MCV 90.3 fL (80.0-100.0)
--- NOTE | 2019-06-11 05:00 | NUR ---
VENT FIO2 DECREASED BY RT POST ABG TO 50%
[2019-06-11 05:10] LABS: ANION GAP 20.6 mmol/L (8-16); CARBON DIOXIDE 21.5 mmol/L (21.0-32.0); CREATININE - SERUM 12.2 mg/dL (0.6-1.3); POTASSIUM - SERUM 4.1 mmol/L (3.5-5.1); VANCOMYCIN - RANDOM 16.2 ug/mL (10.0-20.0)
[2019-06-11 05:14] LABS: CALCIUM 8.4 mg/dL (8.5-10.1)
--- NOTE | 2019-06-11 07:15 | NUR ---
REPORT RECEIVED. ASSESSMENT COMPLETE PER FLOW SHEET. VSS. PT RESTING COMFORTABLY ORAL ENDOTRACH CARE ADM. REPOSITIONED FOR COMFORT WILL CONTINUE TO MONITOR
--- NOTE | 2019-06-11 09:20 | NUR ---
FAMILY AT BEDSIDE GIVEN UPDATE.
--- NOTE | 2019-06-11 11:15 | NUR ---
REASSESSMENT COMPLETE PER FLOW SHEET. VSS. PT RESTING COMFORTABLY WILL CONTINUE TO MONITOR
--- NOTE | 2019-06-11 12:47 | NUR ---
Nutrition follow-up: Pt remains intuabed, sedated CPAP trials Nepro on hold at this time for possible heart cath today; weaning Labs reviewed Wt: 249# RDN following.
--- NOTE | 2019-06-11 13:15 | NUR ---
COMPLETE BB LINEN CHANGE ADM.
--- NOTE | 2019-06-11 15:20 | NUR ---
REASSESSMENT COMPLETE PER FLOW SHEET. VSS. PT RESTING COMFORTABYL WILL CONTINUE TO MONITOR
--- NOTE | 2019-06-11 17:20 | NUR ---
FAMILY AT BEDSIDE GIVEN UDPATE
--- NOTE | 2019-06-11 19:00 | NUR ---
Report received from off going nurse. Pt is laying in bed intubated and sedated. Repositioned for comfort. Oral care performed. No s/s of distress noted. Will continue to monitor.
--- NOTE | 2019-06-11 21:00 | NUR ---
Pt is laying in bed intubated and sedated. Repositioned for comfort. Oral care performed. Family at bedside. No further needs noted. No s/s of distress noted. Will continue to monitor.
--- NOTE | 2019-06-11 23:00 | NUR ---
Reassessment completed, see flowsheet for details. Pt is laying in bed intubated. Repositioned for comfort. Oral care performed. No further needs identified. No s/s of distress noted. Will continue to monitor.
[2019-06-12] VITALS (19 sets, daily range): BP systolic 93–140; BP diastolic 38–81
--- NOTE | 2019-06-12 01:00 | NUR ---
Pt is laying in bed intubated and sedated. Repositioned for comfort. Oral care performed. No further needs indentified. No s/s of distress noted. Will continue to monitor.
[2019-06-12 04:53] LABS: BASOPHILS 0.3 % (0-2); EOSINOPHILS 8.4 % (0-7); HEMATOCRIT 35.2 % (42.0-54.0); HEMOGLOBIN 11.8 g/dL (13.5-17.5); IMMATURE GRANULOCYTES 0.3 % (0-5); LYMPHOCYTES 10.8 % (15-50); MCH 29.8 pg (26.0-34.0); MCHC 33.5 g/dL (31.0-37.0); MCV 88.9 fL (80.0-100.0); MEAN PLATELET VOLUME 10.7 fL (7.4-10.4); MONOCYTES 13.3 % (2-11); NEUTROPHILS 66.9 % (40-80); PLATELET COUNT 177 10x3/uL (130-400); RBC 3.96 10x6/uL (4.20-6.10); RDW 15.4 % (11.5-14.5); WBC 7.8 10x3/uL (4.8-10.8)
[2019-06-12 04:57] LABS: ANION GAP 25.2 mmol/L (8-16); CALCIUM 8.2 mg/dL (8.5-10.1); CARBON DIOXIDE 17.8 mmol/L (21.0-32.0); CREATININE - SERUM 13.4 mg/dL (0.6-1.3); MAGNESIUM - SERUM 2.2 mg/dL (1.8-2.4); PHOSPHOROUS 7.3 mg/dL (2.5-4.9); VANCOMYCIN - RANDOM 14.5 ug/mL (10.0-20.0)
--- NOTE | 2019-06-12 05:00 | NUR ---
On pt's ABG this morning his glucose was 48, treated glucose per hypoglycemia policy. Fingerstick afterward was 89. Repositioned pt for comfort. Oral care performed. No further needs noted. Will continue to monitor.
--- NOTE | 2019-06-12 07:15 | NUR ---
REPORT RECEIVED. ASSESSMENT COMPLETE PER FLOW SHEET. VSS. PT RESTING COMFORTABLY WILL CONTINUE TO MONITOR
--- NOTE | 2019-06-12 07:49 | NUR ---
DR LEI AT BEDSIDE GIVEN UPDATE.
--- NOTE | 2019-06-12 09:00 | NUR ---
FAMILY AT BEDSIDE GIVEN UDPATE. NO NEW CHANGES WILL CONTINUE TO MONTIOR
--- NOTE | 2019-06-12 11:10 | NUR ---
REASSESSMENT COMPLETE PER FLOW SHEET. VSS. PT RESTING COMFORTABLY WILL CONTINUE TO MONITOR
--- NOTE | 2019-06-12 13:00 | NUR ---
DIALYSIS AT BEDSIDE NO NEW CHANGES
[2019-06-13] VITALS (23 sets, daily range): BP systolic 109–149; BP diastolic 43–75
[2019-06-13 04:36] LABS: BASOPHILS 0.4 % (0-2); EOSINOPHILS 11.2 % (0-7); HEMOGLOBIN 11.5 g/dL (13.5-17.5); IMMATURE GRANULOCYTES 0.1 % (0-5); LYMPHOCYTES 10.2 % (15-50); MCH 29.6 pg (26.0-34.0); MCHC 32.9 g/dL (31.0-37.0); MONOCYTES 15.9 % (2-11); NEUTROPHILS 62.2 % (40-80); RBC 3.89 10x6/uL (4.20-6.10); RDW 15.6 % (11.5-14.5); WBC 6.7 10x3/uL (4.8-10.8)
[2019-06-13 04:47] LABS: PLATELET COUNT 218 10x3/uL (130-400)
[2019-06-13 04:58] LABS: CALCIUM 8.1 mg/dL (8.5-10.1); VANCOMYCIN - RANDOM 22.8 ug/mL (10.0-20.0)
[2019-06-13 05:09] LABS: ANION GAP 17.7 mmol/L (8-16); CARBON DIOXIDE 26.2 mmol/L (21.0-32.0); PHOSPHOROUS 5.1 mg/dL (2.5-4.9); POTASSIUM - SERUM 3.9 mmol/L (3.5-5.1)
--- NOTE | 2019-06-13 05:38 | NUR ---
1900 - REPORT RECEIVED. PT SEDATED ON VENT, FOLLOWS COMMANDS. SOFT WRIST RESTRAINTS IN PLACE, NO ACUTE DISTRESS NOTED. PIV IN LEFT WRIST X2, SEE IV FLOWSHEET. ASSESSMENT COMPLETE, SEE FLOWSHEET. 2100 - PT SEDATED ON VENT, NO ACUTE DISTRESS NOTED. 2300 - PT SEDATED ON VENT, REPOSITIONED FOR COMFORT. 0100 - HYPOGLYCEMIC PROTOCOL INITIATED, BS RESOLVED. 0300 - SEDATED ON VENT, REPOSITIONED FOR COMFORT. 0500 - PT SEDATED ON VENT, FOLLOWS COMMANDS. NO CHANGES SINCE PREVIOUS STATUS.
--- NOTE | 2019-06-13 07:31 | NUR ---
attempted to speak to dr fabian regarding low blood sugars.. stated "im not seeing him today."
--- NOTE | 2019-06-13 08:41 | NUR ---
patient gone to laborer heading
[2019-06-13 09:11] LABS: HEPATITIS C ANTIBODY 0.2 S/CO RAT (0.0-0.9)
--- NOTE | 2019-06-13 09:36 | NUR ---
0928 was documented but patient was not avialable in the room
--- NOTE | 2019-06-13 09:40 | NUR ---
Nutrition follow-up: Pt remains intubated, sedated Pt to open hearth laborer at this time Nepro TF off Labs reviewed Wt: 247# Glucose has been running low per nursing Recommend restarting TF post-cath RDN following.
--- NOTE | 2019-06-13 10:00 | NUR ---
PATIENT ARRIVED TO UNIT
--- NOTE | 2019-06-13 10:03 | NUR ---
NO S/S OF HEMATOMA. NO BLEEDING AT SITE. CDI DRESSING. PALP PULSES BILAT. WARM EXTREMITIES LOWER. SOFT AND BOGGY ON R FEMORAL. WILL CONTINUE TO MONITOR
[2019-06-14] VITALS (24 sets, daily range): BP systolic 86–183; BP diastolic 30–87
[2019-06-14 05:16] LABS: BASOPHILS 0.3 % (0-2); EOSINOPHILS 10.8 % (0-7); HEMATOCRIT 37.1 % (42.0-54.0); HEMOGLOBIN 12.5 g/dL (13.5-17.5); IMMATURE GRANULOCYTES 0.3 % (0-5); LYMPHOCYTES 12.6 % (15-50); MCH 30.3 pg (26.0-34.0); MCHC 33.7 g/dL (31.0-37.0); MEAN PLATELET VOLUME 11.5 fL (7.4-10.4); MONOCYTES 13.5 % (2-11); NEUTROPHILS 62.5 % (40-80); PLATELET COUNT 253 10x3/uL (130-400); RBC 4.12 10x6/uL (4.20-6.10); RDW 15.6 % (11.5-14.5); WBC 5.9 10x3/uL (4.8-10.8)
[2019-06-14 05:39] LABS: ANION GAP 21.5 mmol/L (8-16); CALCIUM 7.7 mg/dL (8.5-10.1); CARBON DIOXIDE 23.8 mmol/L (21.0-32.0); CREATININE - SERUM 10.8 mg/dL (0.6-1.3); VANCOMYCIN - RANDOM 18.3 ug/mL (10.0-20.0)
[2019-06-14 05:45] LABS: PHOSPHOROUS 6.8 mg/dL (2.5-4.9); POTASSIUM - SERUM 5.3 mmol/L (3.5-5.1)
--- NOTE | 2019-06-14 16:05 | NUR ---
PS 01/13 @1500
--- NOTE | 2019-06-14 19:46 | NUR ---
0700 REPORT RECEICVED ASSESSMENT COMPLETE SEDATED FOLLOWS COMMANDS
--- NOTE | 2019-06-14 19:47 | NUR ---
0900 REPOSITIONED IN BED UPDATE GIVEN AT BEDSIDE TO FAMILY
--- NOTE | 2019-06-14 19:47 | NUR ---
1100 STOPPED TUBE FEEDING FOR WEANING TRIAL
--- NOTE | 2019-06-14 19:48 | NUR ---
1500 EMESIS NOTED GREEN BILE HELO TUOBE FEEDING
--- NOTE | 2019-06-14 19:48 | NUR ---
1300 CHG BATH COMPLETE LARGE LIQUID BROWN STOOL NOTED
--- NOTE | 2019-06-14 19:49 | NUR ---
1600 WEANING TRIAL BEGAN TURNED SEDATION OFF
--- NOTE | 2019-06-14 19:50 | NUR ---
1700 RESTARTED SEDATION RT PLACED JESSY ON AC AT 20
[2019-06-15] VITALS (24 sets, daily range): BP systolic 96–149; BP diastolic 29–89
--- NOTE | 2019-06-15 04:06 | NUR ---
ABGS UNABLE TO OBTAIN X 2 MORNINGS. STUCK X 3 ATTEMPTS WITH DOPPLER. PT IS RIGHT RESERVE AND HAS LEFT DIALYSIS ACCESS THAT IS NOT USED. PT IS IN NEED OF AN ARTERIAL LINE.
--- NOTE | 2019-06-15 07:00 | NUR ---
REPORT RECIEVED FROM THE OFF GOING RN. SEE ASSESSMENT IN THE PTS FLOW SHEET. FAMILY AT THE PTS BEDSIDE. VSS AT THIS TIME. CALL LIGHT IN REACH. WILL CONT POC.
[2019-06-15 09:03] LABS: HEMATOCRIT 37.2 % (42.0-54.0); HEMOGLOBIN 12.3 g/dL (13.5-17.5); LYMPHOCYTES 6.5 % (15-50); MCH 29.9 pg (26.0-34.0); MCHC 33.1 g/dL (31.0-37.0); MCV 90.3 fL (80.0-100.0); MEAN PLATELET VOLUME 10.8 fL (7.4-10.4); NEUTROPHILS 68.7 % (40-80); PLATELET COUNT 248 10x3/uL (130-400); RBC 4.12 10x6/uL (4.20-6.10); RDW 15.8 % (11.5-14.5); WBC 5.5 10x3/uL (4.8-10.8)
[2019-06-15 09:19] LABS: CALCIUM 8.3 mg/dL (8.5-10.1); CARBON DIOXIDE 22.2 mmol/L (21.0-32.0); CREATININE - SERUM 9.2 mg/dL (0.6-1.3); PHOSPHOROUS 6.5 mg/dL (2.5-4.9); VANCOMYCIN - RANDOM 17.3 ug/mL (10.0-20.0)
[2019-06-15 09:22] LABS: POTASSIUM - SERUM 4.2 mmol/L (3.5-5.1)
--- NOTE | 2019-06-15 09:54 | NUR ---
Nutrition follow-up: Weaning trails started Nepro off at this time Labs reviewed Wt: 247# Pt also had some emesis RDN following.
--- NOTE | 2019-06-15 09:58 | NUR ---
SEDATION TURNED OFF. PLANNING FOR WEENING TRIALS.
--- NOTE | 2019-06-15 10:18 | NUR ---
DIALYSIS NURSES AT THE PTS BEDSIDE. SEDATION TURNED BACK ON FOR DIALYSIS.
--- NOTE | 2019-06-15 13:02 | NUR ---
DR TAO AT THE PTS BEDSIDE. BRONCH COMPLETED. PT TOLERATED WELL.
--- NOTE | 2019-06-15 14:11 | NUR ---
DIALYSIS NURSE AT THE PTS BEDSIDE.
--- NOTE | 2019-06-15 18:03 | NUR ---
DIALSIS NURSE DONE WITH TX. 594 ML REMOVED.
--- NOTE | 2019-06-15 19:30 | NUR ---
RECIVED SHIFT REPORT AT BEDSIDE AT THIS TIME. PT IS INTUBATED/SEDATED. OBSERVED RESTRAINTS WITH GOOD CIRCULATION. IV IS IN THE LEFT WRIST. I DID NOTICE THAT THE PT LEFT ARE IS TWICE THE SIZE OF THE RIGHT. THERE IS A NEW ORDER FOR AN ULTRA SOUND OF THE LEFT ARM PER . WILL BE WAITING ON RESULTS. VITALS SIGNS ARE STABLE. THERE IS GOOD CAP REFILL TO BOTH HANDS BILAT. WILL PERFORM FULL ASSESSMENT AND DOCUMENT. BED IS LOW,SIDE RAILSX2,CALL LIGTH WITHIN REACH. WILL CONTINUE TO MONITOR
--- NOTE | 2019-06-15 20:28 | NUR ---
ULTRASOUND IS HER AT THIS TIME GOING TO PERFORM DOPPLER TO THE LEFT ARM
--- NOTE | 2019-06-15 21:15 | NUR ---
notified of ultrasound report of left arm. new T.O TO GIVE 100MG SUBQ Q24H. T.O READ BACK CORRECT.
--- NOTE | 2019-06-15 22:18 | NUR ---
IS HERE AT THIS TIME. NOTIFIED HIM OF PT NEW DVT DIAGNOSIS TO HIS LEFT ARM AND THAT HE IS A RIGHT ARM RESERVE. ART LINE IS NEEDED. IS CONFIRMING PLACEMENT
--- NOTE | 2019-06-15 22:22 | NUR ---
PT IS RESTING IN BED INTUBATED/SEDATED. VITALS SIGNS ARE STABLE. BED IS LOW,SIDE RAISLX2,CALL LIGHT WITHIN REACH. WILL CONTINUE TO MONITOR
[2019-06-16] VITALS (24 sets, daily range): BP systolic 92–128; BP diastolic 32–89
--- NOTE | 2019-06-16 00:26 | NUR ---
CHANGED FEEDING TUBE SYSTEM AT THIS TIME. CHECK RESDIUAL AND THERE WAS LESS THAN 10ML. RESTARTED ORDERED. TURNED PT TO RIGHT SIDE AT THIS TIME, WHILE ELEVATING LEFT ARM ON PILLOW AND ELEVATING BILAT FEET TO SUPPORT BACK OF KNEES AND BRIDGE HEELS OFF OF BED. VITALS ARE STABLE. BED IS LOW,SIDE RAISLX2,CALL LIGHT WITHIN REACH. WILL CONTINUE TO MONITOR
--- NOTE | 2019-06-16 02:02 | NUR ---
PT IS RESTING IN BED WITH EYES CLOSED. PT IS INTUBATED/SEDATED. VSS. BED IS LOW,SIDE RAILSX2,CALL LIGHT WITHIN REACH. WILL CONTINUE TO MONITOR
--- NOTE | 2019-06-16 03:00 | NUR ---
PERFORMED RE-ASSESSMENT AT THIS TIME. ALSO DID COMPLETE BED BATH C CHG MEDICAID BUSINESS ANALYST. PT HAD SMALL BM THAT WAS VERY SOFT BROWN IN COLOR IN BED. CLEANED ENTIRE BODY AND COMPLETE LINEN CHANGE AT THIS TIME. APPLIED NEW MEPAPLEX DRESSING TO COCCYX AREA. UN TIED RESTRAINTS WHILE GIVNING BATH AND REAPPLIED AFTER DONE. PROPPED PT TO RIGHT SIDE WITH LEFT ARM ELEVATED ON PILLOW. I ALSO ELEVATED PT LOWER LEGS BILAT TO HAVE HEALS BRIDGED OFF OF BED. PERFORMED ORAL CARE AND SUCTION BEFORE BED BATH. VS REMAINED STABLE. I ALSO HELD TUBE FEEDING BEFORE BATH AND RESTARTED AFTER FINSHED. BED IS IN LOW POSITION. SIDE RAISLX2, CALL LIGHT WITHIN REACH. WILL CONITNUE TO MONITOR
--- NOTE | 2019-06-16 04:45 | NUR ---
PT IS RESTING IN BED WITH EYES CLOSED. INTUBATED/SEDATED. VSS. BED IS LOW,SIDE RAISLX2,CALL LIGHT WITHIN REACH. WILL CONTINUE TO MONITOR
--- NOTE | 2019-06-16 06:03 | NUR ---
PT HAD ANOTHER LOOSE SOFT BM BROWN IN COLOR LARGE AMOUNT. CLEANED PT AND CHANGED ALL LINENS AND GOWN. PT TOLERATED WELL. VITAL SIGNS REMAINED STABLE. BED IS LOW,SIDE RAILSX2,CALL LIGHT WTIHIN REACH. WILL CONTINUE TO MONITOR
--- NOTE | 2019-06-16 07:30 | NUR ---
0ML RESIDUAL NOTED PER NGT.
--- NOTE | 2019-06-16 08:30 | NUR ---
LYING IN BED ON VENT AT THIS TIME. AT BEDSIDE. VSS. NO ACUTE DISTRESS NOTED. PT TURNED Q2H. ORAL CARE PROVIDED Q2H. PT AROUSES TO DISCOMFORT. WILL CONTINUE PLAN OF CARE.
--- NOTE | 2019-06-16 10:12 | NUR ---
PER LAB; UNABLE TO DRAW BLOOD AFTER MULTIPLE ATTEMPTS. DIALYSIS NURSE IN ROOM, STATED OKAY TO DRAW LAB DURING DIALYSIS. VSS. NO ACUTE DISTRESS NOTED. WILL CONTINUE PLAN OF CARE.
[2019-06-16 11:05] LABS: BASOPHILS 0.3 % (0-2); EOSINOPHILS 7.3 % (0-7); HEMATOCRIT 35.2 % (42.0-54.0); HEMOGLOBIN 11.8 g/dL (13.5-17.5); IMMATURE GRANULOCYTES 1.2 % (0-5); LYMPHOCYTES 14.7 % (15-50); MCH 30.5 pg (26.0-34.0); MCHC 33.5 g/dL (31.0-37.0); MEAN PLATELET VOLUME 11.1 fL (7.4-10.4); MONOCYTES 14.5 % (2-11); PLATELET COUNT 268 10x3/uL (130-400); RBC 3.87 10x6/uL (4.20-6.10); RDW 15.8 % (11.5-14.5)
[2019-06-16 11:07] LABS: WBC 7.2 10x3/uL (4.8-10.8)
[2019-06-16 11:25] LABS: ANION GAP 16.6 mmol/L (8-16); CALCIUM 8.4 mg/dL (8.5-10.1); CREATININE - SERUM 7.2 mg/dL (0.6-1.3); POTASSIUM - SERUM 3.6 mmol/L (3.5-5.1); VANCOMYCIN - RANDOM 14.3 ug/mL (10.0-20.0)
--- NOTE | 2019-06-16 12:13 | NUR ---
PT CURRENTLY RECIEVING DIALYSIS, WILL ADMIN SCHEDULED ANTIBIOTIC WHEN DIALYSIS IS COMPLETE.
--- NOTE | 2019-06-16 14:34 | NUR ---
UP IN BED ON VENT AT THIS TIME. VSS. NO ACUTE DISTERSS NOTED. DIALYSIS COMPLETE. PT TURNED Q2H. ORAL CARE PROVIDED Q2H. WILL CONTINUE PLAN OF CARE.
--- NOTE | 2019-06-16 16:50 | NUR ---
FAMILY AT BEDSIDE AT THIS TIME, QUESTIONS ASKED, PT FAMILY REQUEST TO SPEAK WITH A PHYSICIAN. DR GARCIA PAGED AT THIS TIME. WAITING FOR CALLBACK.
--- NOTE | 2019-06-16 17:16 | NUR ---
DR GARCIA HAS SPOKEN WITH FAMILY AT THIS TIME. QUESTIONS ANSWERED, FAMILY DENEIS ANY CURRENT QUESTIONS OR CONCERNS.
[2019-06-16 18:08] LABS: ACID FAST SMEAR Negative (()); AFB SPECIMEN PROCESSING Concentration (())
--- NOTE | 2019-06-16 18:39 | NUR ---
DR COOL AT BEDSIDE PLACING CVL AT THIS TIME.
--- NOTE | 2019-06-16 19:45 | NUR ---
REPORT REC'D AND CARE ASSUMED, REC'D PT SEDATED ON VENT VIA 7.5 ETT TAPED SECURELY @ 29CM LIPLINE, SEE FLOWSHEET FOR VENT SETTINGS, PT AROUSABLE TO DEEP STIMULI, DOES NOT FOLLOW COMMANDS, RIJTL DRSG CDI, RIGHT FOREARM PIV WITH NS @ 5CC/HR, FENTANYL @ 150MCG/HR, AND DIPRIVAN @ 28MCG/KG/MIN, RIGHT NARE NGT WITH NEPRO @ 30CC/HR, NGT TAPED SECURELY, PLACEMENT VERIFIED VIA SM AIR BOLUS AUSCULTATED OVER EPIGASTRIM, ABD SOFT, RIGHT ARM FISTULA PALPABLE THRILL AND BRUIT AUSCULTATED, PPP, BED IN LOW POSITION, SR UP X 2, BILAT SOFT WRIST RESTRAINTS INTACT.
--- NOTE | 2019-06-16 20:40 | NUR ---
FAMILY AT BS, UPDATE GIVEN AND QUESTIONS ANSWERED, VSS.
--- NOTE | 2019-06-16 21:00 | NUR ---
EVENING MEDS GIVEN ORDERED, REMAINS AT BS.
--- NOTE | 2019-06-16 23:30 | NUR ---
REASSESSMENT COMPLETED, NGT FOUND IN FLOOR, 16FR NGT INSERTED VIA RIGHT NARE AND PLACEMENT VERIFIED VIA SM AIR BOLUS AUSCULTATED OVER EPIGASTRIM, NEPRO RESUMED AT 30CC/HR, PT TOLERATED WELL SEDATED ON VENT, BP STABLE, WILL CONT TO MONITOR FOR CHANGES.
[2019-06-17] VITALS (24 sets, daily range): BP systolic 92–154; BP diastolic 32–77
--- NOTE | 2019-06-17 01:30 | NUR ---
NO CHANGES IN STATUS
--- NOTE | 2019-06-17 03:30 | NUR ---
REASSESSMENT COMPLETED, PT REPOSITIONED UP AND ONTO RIGHT SIDE SUPPORTED WITH PILLOWS, ORAL CARE PROVIDED, WILL CONT TO MONITOR FOR CHANGES.
--- NOTE | 2019-06-17 05:30 | NUR ---
AM LAB DRAWN AND SENT TO LAB, PT REPOSITIONED IN BED FOR COMFORT,VSS.
[2019-06-17 05:46] LABS: BASOPHILS 0.4 % (0-2); EOSINOPHILS 5.9 % (0-7); HEMATOCRIT 33.6 % (42.0-54.0); HEMOGLOBIN 11.1 g/dL (13.5-17.5); IMMATURE GRANULOCYTES 1.1 % (0-5); LYMPHOCYTES 8.4 % (15-50); MCV 90.8 fL (80.0-100.0); MEAN PLATELET VOLUME 10.9 fL (7.4-10.4); MONOCYTES 19.4 % (2-11); NEUTROPHILS 64.8 % (40-80); PLATELET COUNT 271 10x3/uL (130-400); RDW 15.6 % (11.5-14.5); WBC 8.5 10x3/uL (4.8-10.8)
[2019-06-17 06:05] LABS: ALBUMIN 1.6 g/dL (3.4-5.0); ANION GAP 14.8 mmol/L (8-16); BILIRUBIN - TOTAL 0.54 mg/dL (0.2-1.3); CALCIUM 8.4 mg/dL (8.5-10.1); CARBON DIOXIDE 26.5 mmol/L (21.0-32.0); CREATININE - SERUM 5.9 mg/dL (0.6-1.3); MAGNESIUM - SERUM 1.9 mg/dL (1.8-2.4); PHOSPHOROUS 3.9 mg/dL (2.5-4.9); POTASSIUM - SERUM 3.3 mmol/L (3.5-5.1); PROTEIN - SERUM 6.7 g/dL (6.4-8.2)
--- NOTE | 2019-06-17 07:23 | NUR ---
LYING IN BED ON VENT AT THIS TIME. PT SEDATED, RESPONDS TO DISCOMFORT. NGT PLACEMENT VERIFIED VIA AUSCULTATION, 5ML RESIDUAL NOTED. NO ACUTE DISTRESS NOTED. WILL CONTINUE PLAN OF CARE.
--- NOTE | 2019-06-17 09:22 | NUR ---
NOTED TUBE FEEDS DRAINING FROM PTS MOUTH. TUBE FEEDS TURNED OFF. SUCTIONING PROVIDED. NGT PLACEMENT VERIFICATION ASSESSED AND CONFIRMED VIA AUSCULTATION AND NOTED PER THIS ASSESSMENT SEEMS IN PLACE. XR CHEST ORDER RECIEVED TO BE SURE NGT IS IN PROPER PLACE. VSS. AT BEDSIDE. WILL CONTINUE PLAN OF CARE.
--- NOTE | 2019-06-17 11:10 | OP ---
PATIENT NAME: JASE MORGAN MEDICAL RECORD: [id number] :55 LOCATION:D.[facility] D.2310 ADMISSION DATE:06/06/19 SURGEON: LORA MENDENHALL MD DATE OF OPERATION: 06/08/2019 PROCEDURES: 1. PTCA stent RCA. 2. Left heart catheterization. 3. Selective coronary angiography. 4. Left ventriculogram. INDICATION: Myocardial infarction. DESCRIPTION OF PROCEDURE IN DETAIL: After informed consent was obtained and after a detailed description of risks, benefits as well as alternative therapies, the patient elected to proceed with angiogram and angioplasty. The right femoral area was prepped and draped in normal sterile fashion. Right femoral artery was cannulated via modified Seldinger technique with placement of 6-Israeli sheath. All catheters exchanged through this sheath. FINDINGS: Left ventriculogram was performed in standard 30-degree PIÑA view, reveals global hypokinesis, ejection fraction in the 30% to 35% range. SELECTIVE CORONARY ANGIOGRAPHY: 1. Left main has a distal 90% stenosis. This leads into the ostium of the LAD. 2. Left anterior descending: This has a 95% stenosis in the mid vessel. 3. Left circumflex has at least 70% stenosis proximally. 4. The right coronary has multiple areas of 95%-99% stenosis. PTCA STENT OF THE RCA: The stent used was a 3.0 x 38 and 2.0 x 15, both Sidney stents. Result was 0% residual stenosis. OVERALL IMPRESSION: Successful percutaneous transluminal coronary angioplasty stent of the right coronary artery going from 95+ percent initial stenosis to 0% residual. PLAN: PTCA stent LAD, left main and circumflex in the near future. TRANSINT:[id number] Voice Confirmation ID: [id number] DOCUMENT ID: [id number] LORA MENDENHALL MD at 1110 CC: [id number] DICTATION DATE: 06/08/19 1333 [employer] FLOOR REFINISHER: 06/08/19 1844 ADM IN [place] [address] [place] [address]
--- NOTE | 2019-06-17 12:17 | NUR ---
PER DR TAO, WEAN SEDATION FOR CPAP TRIAL.
--- NOTE | 2019-06-17 14:04 | NUR ---
FAMILY AT BEDSIDE AT THIS TIME. VSS. NO ACUTE DISTRESS NOTED. CALL LIGHT IN REACH. WILL CONTINUE PLAN OF CARE.
--- NOTE | 2019-06-17 16:05 | NUR ---
FAMILY AT BEDSIDE. VSS. NO ACUTE DISTRESS NOTED. PT TURNED Q2H. ORAL CARE PROVIDED Q2H. WILL CONTINUE PLAN OF CARE.
--- NOTE | 2019-06-17 18:08 | NUR ---
NO ACUTE DISTRESS NOTED.NO CHANGE.VSS. WILL CONTINUE PLAN OF CARE.
--- NOTE | 2019-06-17 19:15 | NUR ---
REPORT RECIEVED, SHIFT ASSESSMENT COMPLETE, PT IS SEDATED ON VENT, RESPONDS TO PAINFUL STIMULI, ALL PPP, VSS, WILL CON'T TO MONITOR
--- NOTE | 2019-06-17 21:15 | NUR ---
FAMILY AT BEDSIDE, UPDATE GIVEN
--- NOTE | 2019-06-17 23:04 | NUR ---
COMPLETE BATH AND LINEN CHANGE, PT TOLERATED WELL
[2019-06-18] VITALS (24 sets, daily range): BP systolic 113–184; BP diastolic 53–90
--- NOTE | 2019-06-18 01:02 | NUR ---
REPOSITIONED FOR COMFORT, ORAL CARE PROVIDED,
--- NOTE | 2019-06-18 03:11 | NUR ---
REASSESSMENT COMPLETE, NO CHANGES NOTED, REPOSITIONED FOR COMFORT, ORAL CARE PROVIDED,
--- NOTE | 2019-06-18 05:00 | NUR ---
PT RESTING AT THIS TIME, WILL CON'T TO MONITOR
[2019-06-18 05:44] LABS: GENTAMICIN - RANDOM 2.6 ug/mL (0.5-2.0); VANCOMYCIN - RANDOM 19.7 ug/mL (10.0-20.0)
[2019-06-18 05:48] LABS: PHOSPHOROUS 5.1 mg/dL (2.5-4.9)
--- NOTE | 2019-06-18 09:25 | NUR ---
Nutrition follow-up: CPAP trials NGT with Nepro; off at this time Goal rate 50 ml/hr Wt: 249# Labs reviewed RDN following.
[2019-06-18 11:09] LABS: FUNGUS STAIN Final report (())
--- NOTE | 2019-06-18 14:53 | OP ---
PATIENT NAME: JASE MORGAN MEDICAL RECORD: [id number] :55 LOCATION:D.[facility] D.2310 ADMISSION DATE:06/06/19 SURGEON: LORA MENDENHALL MD DATE OF OPERATION: 06/13/2019 PROCEDURES: 1. PTCA and stent of left main. 2. PTCA and stent of left circumflex. 3. PTCA and stent of LAD. 4. Selective coronary angiography. INDICATIONS: Angina, coronary artery disease, non-Q-wave myocardial infarction. DESCRIPTION OF PROCEDURE: After informed consent was obtained and after detailed explanation of risks, benefits as well as alternative therapies, the patient elected to proceed with angiogram and angioplasty. The right femoral area was prepped and draped in normal sterile fashion. Right femoral artery was cannulated via modified Seldinger technique with placement of 6-Divehi sheath. All catheters exchanged through this sheath. FINDINGS: The left main has 90% stenosis. Left anterior descending has 90% stenosis. Left circumflex has 80% stenosis. The left main was addressed with a 3.0 x 12-mm [place], the left circumflex with a 3.0 x 8-mm Sidney, the LAD with 3.0 x 15-mm Sidney. Result was 0% residual throughout. OVERALL IMPRESSION: Successful PTCA and stent of the left main, LAD, and left circumflex, all going from 80% to 90% initial stenosis to 0% residual. TRANSINT:[id number] Voice Confirmation ID: [id number] DOCUMENT ID: [id number] LORA MENDENHALL MD at 1453 CC: [id number] DICTATION DATE: 06/13/19929 FINANCIAL ADVOCATE: 06/13/19 1135 ADM IN [place] [id number] [place] [id number]
--- NOTE | 2019-06-18 17:41 | NUR ---
paged dr silva twice already. no answer once direct pageer and second time zander office
--- NOTE | 2019-06-18 19:30 | NUR ---
REPORT RECIEVED, SHIFT ASSESSMENT COMPLETE, PT IS SEDATED ON VENT, ON 40% FIO2 WITH 97% O2 SAT, ALL PPP, VSS, WILL CON'T TO MONITOR
--- NOTE | 2019-06-18 21:11 | NUR ---
FAMILY AT BEDSIDE, UPDATE GIVEN
--- NOTE | 2019-06-18 23:06 | NUR ---
REASSESSMENT COMPLETE, NO CHANGES NOTED, PT RESTING AT THIS TIME, VSS, WILL CON'T TO MONITOR
[2019-06-19] VITALS (24 sets, daily range): BP systolic 103–189; BP diastolic 51–96
--- NOTE | 2019-06-19 01:30 | NUR ---
REPOSITIONED FOR COMFORT, ORAL CARE PROVIDED
--- NOTE | 2019-06-19 03:04 | NUR ---
REASSESSMENT COMPLETE, NO CHANGES NOTED, PT REPOSITIONED FOR COMFORT, ORAL CARE PROVIDED
--- NOTE | 2019-06-19 05:13 | NUR ---
NO NEEDS NOTED AT THIS TIME, WILL CON'T TO MONITOR
[2019-06-19 05:48] LABS: BASOPHILS 0.4 % (0-2); EOSINOPHILS 10.2 % (0-7); HEMATOCRIT 33.8 % (42.0-54.0); HEMOGLOBIN 11.1 g/dL (13.5-17.5); IMMATURE GRANULOCYTES 0.8 % (0-5); LYMPHOCYTES 17.3 % (15-50); MCH 29.4 pg (26.0-34.0); MCHC 32.8 g/dL (31.0-37.0); MCV 89.4 fL (80.0-100.0); MEAN PLATELET VOLUME 10.6 fL (7.4-10.4); MONOCYTES 13.9 % (2-11); NEUTROPHILS 57.4 % (40-80); PLATELET COUNT 305 10x3/uL (130-400); RBC 3.78 10x6/uL (4.20-6.10); RDW 15.7 % (11.5-14.5); WBC 7.3 10x3/uL (4.8-10.8)
[2019-06-19 06:26] LABS: CALCIUM 8.9 mg/dL (8.5-10.1); CARBON DIOXIDE 26.6 mmol/L (21.0-32.0); PHOSPHOROUS 5.6 mg/dL (2.5-4.9); POTASSIUM - SERUM 3.6 mmol/L (3.5-5.1)
[2019-06-19 06:29] LABS: CREATININE - SERUM 8.4 mg/dL (0.6-1.3)
--- NOTE | 2019-06-19 07:30 | NUR ---
dr dimas at bedside
--- NOTE | 2019-06-19 08:34 | NUR ---
dr dewitt at bedside
--- NOTE | 2019-06-19 12:29 | NUR ---
EXTUBATED AT 1108 BIPAP AT 1130
--- NOTE | 2019-06-19 17:55 | NUR ---
1300- PATIENT SUCTIONED ORALLY AND REPOSITIONED. SEE ADL 1500-SEE REASSESSMENT. SPOKE WITH FAMILY. DR WHATLEY CALLED FOR UPDATE. 1700- FAMILY AT BEDSIDE. SEE ADL'S. SUCTIONED. COMFORTABLE. 4 L NC DURING THIS TIME PER DR WHATLEY
[2019-06-20] VITALS (24 sets, daily range): BP systolic 126–211; BP diastolic 56–92
[2019-06-20 05:28] LABS: BASOPHILS 0.4 % (0-2); EOSINOPHILS 6.4 % (0-7); HEMATOCRIT 38.5 % (42.0-54.0); HEMOGLOBIN 12.9 g/dL (13.5-17.5); IMMATURE GRANULOCYTES 0.7 % (0-5); LYMPHOCYTES 14.8 % (15-50); MCH 30.1 pg (26.0-34.0); MCHC 33.5 g/dL (31.0-37.0); MCV 89.7 fL (80.0-100.0); MONOCYTES 12.6 % (2-11); NEUTROPHILS 65.1 % (40-80); PLATELET COUNT 314 10x3/uL (130-400); RBC 4.29 10x6/uL (4.20-6.10); RDW 15.7 % (11.5-14.5)
[2019-06-20 05:30] LABS: WBC 9.7 10x3/uL (4.8-10.8)
[2019-06-20 05:45] LABS: ANION GAP 20.2 mmol/L (8-16); CALCIUM 9.5 mg/dL (8.5-10.1); CARBON DIOXIDE 23.6 mmol/L (21.0-32.0); CREATININE - SERUM 7.6 mg/dL (0.6-1.3); PHOSPHOROUS 6.2 mg/dL (2.5-4.9); POTASSIUM - SERUM 3.8 mmol/L (3.5-5.1)
--- NOTE | 2019-06-20 08:12 | NUR ---
switched to nc
--- NOTE | 2019-06-20 13:53 | NUR ---
Nutrition follow-up: Extubated / NPO until cleared for diet by speech Labs reviewed RDN following.
[2019-06-21] VITALS (24 sets, daily range): BP systolic 120–193; BP diastolic 51–87
[2019-06-21 06:31] LABS: BASOPHILS 0.4 % (0-2); HEMATOCRIT 37.6 % (42.0-54.0); HEMOGLOBIN 12.4 g/dL (13.5-17.5); IMMATURE GRANULOCYTES 0.8 % (0-5); LYMPHOCYTES 15.6 % (15-50); MCH 29.8 pg (26.0-34.0); MCV 90.4 fL (80.0-100.0); MEAN PLATELET VOLUME 9.9 fL (7.4-10.4); MONOCYTES 10.1 % (2-11); NEUTROPHILS 68.1 % (40-80); PLATELET COUNT 323 10x3/uL (130-400); RBC 4.16 10x6/uL (4.20-6.10); RDW 15.9 % (11.5-14.5); WBC 10.1 10x3/uL (4.8-10.8)
[2019-06-21 06:59] LABS: ANION GAP 22.9 mmol/L (8-16); CALCIUM 9.6 mg/dL (8.5-10.1); CREATININE - SERUM 9.3 mg/dL (0.6-1.3); POTASSIUM - SERUM 3.9 mmol/L (3.5-5.1)
--- NOTE | 2019-06-21 12:31 | NUR ---
SPOKE WITH DR SOLOMON (SUPERVISOR REAL ESTATE OFFICE FOR DR LEI). SPOKE WITH HIM ABOUT THE BRONCH WASH CULTURES AND NO DVT TREATMENT FOR DVT IN ARM. DR SOLOMON STATED TO USE HEPARIN GTT PER PROTOCHOL. HE RECOMENEDED MERRUM BUT HE WANTS PHARMACY TO RECOMENED A DOSE AND HE WANTS TO SEE IF DR WHATLEY WANTS TO DO A ABT UPDRAFT TREATMENT. PHARMACY RECOMENDED MERRUM 500MG Q12H X10 DAYS. [address] WHATLEY ASKED ABOUT ABT UPDRAFTS AND HE STATED THEY WHERE NOT NEEDED.
[2019-06-21 12:40] LABS: HEMATOCRIT 38.5 % (42.0-54.0); HEMOGLOBIN 13.1 g/dL (13.5-17.5); MCH 30.5 pg (26.0-34.0); MCV 89.5 fL (80.0-100.0); MEAN PLATELET VOLUME 9.1 fL (7.4-10.4); RBC 4.3 10x6/uL (4.20-6.10); RDW 15.7 % (11.5-14.5); WBC 11.5 10x3/uL (4.8-10.8)
[2019-06-21 13:12] LABS: APTT 38.9 SECONDS (22.8-39.4); INR 1.03 (0.85-1.17); PROTIME 13.4 SECONDS (11.6-15.0)
[2019-06-21 14:09] LABS: FUNGUS MYCOLOGY CULTURE Preliminary report (())
[2019-06-22] VITALS (24 sets, daily range): BP systolic 92–178; BP diastolic 47–98
[2019-06-22 05:58] LABS: BASOPHILS 0.4 % (0-2); EOSINOPHILS 2.8 % (0-7); HEMATOCRIT 37.3 % (42.0-54.0); HEMOGLOBIN 12.5 g/dL (13.5-17.5); IMMATURE GRANULOCYTES 0.5 % (0-5); LYMPHOCYTES 12.5 % (15-50); MCH 30.2 pg (26.0-34.0); MCHC 33.5 g/dL (31.0-37.0); MCV 90.1 fL (80.0-100.0); MEAN PLATELET VOLUME 10.4 fL (7.4-10.4); MONOCYTES 12.6 % (2-11); NEUTROPHILS 71.2 % (40-80); PLATELET COUNT 328 10x3/uL (130-400); RBC 4.14 10x6/uL (4.20-6.10); RDW 15.6 % (11.5-14.5); WBC 12.3 10x3/uL (4.8-10.8)
[2019-06-22 06:15] LABS: CALCIUM 10.1 mg/dL (8.5-10.1); CARBON DIOXIDE 24.7 mmol/L (21.0-32.0); CREATININE - SERUM 7.2 mg/dL (0.6-1.3); PHOSPHOROUS 6.5 mg/dL (2.5-4.9); POTASSIUM - SERUM 3.7 mmol/L (3.5-5.1)
--- NOTE | 2019-06-22 07:00 | NUR ---
BEDSIDE REPORT RECEIVED. SHIFT ASSESSMENT COMPLETED PER FLOWSHEET, SEE FLOWSHEET FOR INFORMATION. NO ACUTE NEEDS OR DISTRESS NOTED AT THIS TIME. VSS. WILL CONT TO MONITOR.
--- NOTE | 2019-06-22 09:00 | NUR ---
FAMILY AT BEDSIDE, FAMILY REQUESTED PT BE "CLEANED UP RIGHT NOW, HE IS FILTHY." REASSURED FAMILY THAT NURSE TURNED HIM AND LOOKED AT HIM, BUT NURSE WOULD BE IN THERE TO GIVE HIM A BATH. CHG BEDBATH AND COMPLETE LINEN CHANGE COMPLETED. NO BM OR INCONTINENCE NOTED. WILL CONT TO MONITOR.
--- NOTE | 2019-06-22 09:42 | NUR ---
Nutrition follow-up: Diet advanced to renal puree with honey thick liquids per speech Labs reviewed Wt: 249# RDN following.
--- NOTE | 2019-06-22 11:00 | NUR ---
REASSESSMENT COMPLETED PER FLOWSHEET, SEE FLOWSHEET FOR INFORMATION. TURNED PT DOWN TO 1L NC, PT SATING 99% ON 2L NC. WILL CONT TO MONITOR.
--- NOTE | 2019-06-22 13:00 | NUR ---
COMPLETE LINEN CHANGE, REPOSITIONED IN BED. NO ACUTE NEEDS OR DISTRESS NOTED AT THIS TIME. VSS. WILL CONT TO MONITOR.
--- NOTE | 2019-06-22 15:00 | NUR ---
REASSESSMENT COMPLETED PER FLOWSHEET, SEE FLOWSHEET FOR INFORMATION. NO ACUTE NEEDS OR DISTRESS NOTED AT THIS TIME. VSS. WILL CONT TO MONITOR.
--- NOTE | 2019-06-22 17:00 | NUR ---
REPOSITIONED PER REQUEST, TRIED TO REPOSITION PT BY HERSELF, DISCONNECTED PT FROM MONITOR. REATTACHED TO MONITOR. NO ACUTE NEEDS OR DISTRESS, VSS. WILL CONT TO MONITOR.
--- NOTE | 2019-06-22 19:00 | NUR ---
RECIVED REPORT AT BEDSIDE. PT IS RESTING IN BED WITH EYES CLOSED. BIPAP IS ON. VSS. PT VOICES NO NEEDS WHEN ASKED. VOICES "NO PAIN" WHEN ASKED. OBSERVED ISOLATION. WILL PERFORM FULL ASSESSMENT AND DOCUMENT. BED IS LOW,SIDE RAISLX2,CALL LIGHT WITHIN REACH. WILL CONTINUE TO MONITOR. BED ALARM IS ON
--- NOTE | 2019-06-22 19:45 | NUR ---
INR IS 67.6. THERE IS NO CHANGE TO HEPARIN DRIP AT THIS TIME PER PROTOCOL AND ORDER.
--- NOTE | 2019-06-22 21:48 | NUR ---
PT IS RESTING IN BED WITH EYES CLOSED. BIPAP IS ON. VSS. WHEN ASKED PT VOICES NO NEEDS OR CONCERNS. BED IS LOW,SIDE RAILSX2,CALL LIGHT WITHIN REAHC. IS AT BEDSIDE.
--- NOTE | 2019-06-22 23:01 | NUR ---
PT IS RESTING IN BED WITH EYES CLOSED. BIPAP IS ON. PERFORMED ORAL CARE AND PLACED MASK BACK ON. VSS. ALSO TURNED PT AT THIS TIME AND WILL PERFROM RE-ASSESSMENT AND DOCUMENT. NO NEEDS OR COMPLAINTS VOICED. BED IS LOW,SIDE RAISLX2,CALL LIGHT WITHIN REACH. WILL CONINTUE TO MONITOR
[2019-06-23] VITALS (11 sets, daily range): BP systolic 102–181; BP diastolic 48–75
--- NOTE | 2019-06-23 01:10 | NUR ---
PT HAD INCONTINENT BM IN BED. SMALL SOFT LIGHT BROWN. HAD TO GET ASSIST FROM ANOTHER NURSE BECAUSE PT IS VERY WEAK AND COULD NOT HELP TO ROLL IN ORDER TO CLEAN UP. ASSISTED WITH CEANING BM AND ALSO CLEANED GROIN AREA WHICH IS SLIGHTLY RED IN COLOR WITH BUTT PASTE APPLIED TO HELP FROM SHEERING. PT TOLERATED WELL. VSS. CHANGED PARTIAL LINENS AND GOWN. BED IS LOW,SIDE RIALX2,CALL LIGHT WITHIN REACH. WILL CONINTUE TO MONITOR
--- NOTE | 2019-06-23 03:12 | NUR ---
WENT TO PERFORM RE-ASSESSMENT AT THIS TIME. PT IS AWAKE AND ASK IF HE CAN HAVE A DRINK. ASSITED TO TAKE BIPAP OFF AND GAVE DRINK OF THICKENED LEMON FLAVORED WATER ORDERED. PT VOICED"THATS BETTER". I ALSO PERFOMRED ORAL HYGIENE TO HELP WET MOUTH. VITAL SIGNS ARE STABLE. ASSISTED UP IN BED AND TURNED TO RIGHT SIDE LEAVING BUTTOCK AREA FREE OF PRESSURE. PT VOICED"I WANT TO SIT UP MORE IN THE BED". SO ASSISTED HIM. NO OTHER NEEDS WERE VOICED. WILL DOCUMENT RE-ASSESSMENT. BED IS LOW,SIDE RAILSX2,CALL LIGHT WIHTINR EACH. BED ALARM IS ON. WILL CONINTUE TO MONITOR
[2019-06-23 04:22] LABS: BASOPHILS 0.4 % (0-2); EOSINOPHILS 2.5 % (0-7); HEMATOCRIT 37.4 % (42.0-54.0); HEMOGLOBIN 12.4 g/dL (13.5-17.5); IMMATURE GRANULOCYTES 0.6 % (0-5); LYMPHOCYTES 11.7 % (15-50); MCH 30.3 pg (26.0-34.0); MCHC 33.2 g/dL (31.0-37.0); MCV 91.4 fL (80.0-100.0); MEAN PLATELET VOLUME 10.2 fL (7.4-10.4); MONOCYTES 16.7 % (2-11); NEUTROPHILS 68.1 % (40-80); PLATELET COUNT 317 10x3/uL (130-400); RBC 4.09 10x6/uL (4.20-6.10); RDW 15.6 % (11.5-14.5); WBC 11.3 10x3/uL (4.8-10.8)
--- NOTE | 2019-06-23 05:00 | NUR ---
PT IS RESTING IN BED WITH EYES CLOSED. BIPAP IS ON. VSS. BED IS LOW,SIDE RAILSX2,CALL KITTY VALDIVIA. WILL CONTIOUE TO MONITOR
[2019-06-23 05:12] LABS: CALCIUM 9.7 mg/dL (8.5-10.1); CARBON DIOXIDE 26.9 mmol/L (21.0-32.0); CREATININE - SERUM 8.5 mg/dL (0.6-1.3); PHOSPHOROUS 7.5 mg/dL (2.5-4.9); POTASSIUM - SERUM 3.9 mmol/L (3.5-5.1)
--- NOTE | 2019-06-23 06:15 | NUR ---
PT USED CALL LIGHT FROM ROOM ASKED IF HE COULD BE HELPED TO ROLL OVER. ASSISTED PT UP IN BED X2 ASSIST AND ROLLED OVER TO LEFT SIDE. PILLOW IS UNDER BACK AND PT WAS PUT ON HIGH FLOW NC AT 5L WITH A O2 SATURATION OF 100%. NO OTHER NEEDS VOICED. I DID DO ORAL CARE WHILE IN ROOM AND PT IS COUGHING UP THICK YELLOW SPUTUM. NSS. BED IS LOW,SIDE RAISLX2,CALL LIGHT WIHTIN REACH. WILL CONTINUE TO MONITOR
--- NOTE | 2019-06-23 06:24 | NUR ---
JUST RECIIVED APPT LAB BACK AND IS 92.0. PER PROTOCOL I AM HOLDING HEPARIN DRIP FOR 30 MINUTES AND THEN WILL DECREASE BY 100 UNITS/HR AND RE CHECK IN 6 HOURS.
--- NOTE | 2019-06-23 07:00 | NUR ---
BEDSIDE REPORT RECEIVED. SHIFT ASSESSMENT COMPLETED PER FLOWSHEET, SEE FLOWSHEET FOR INFORMATION. NO ACUTE NEEDS OR DISTRESS NOTED AT THIS TIME. WILL CONT TO MONITOR.
--- NOTE | 2019-06-23 09:00 | NUR ---
0900 MEDICATIONS GIVEN. NO ACUTE NEEDS OR DISTRESS NOTED AT THIS TIME. VSS.
--- NOTE | 2019-06-23 11:00 | NUR ---
REPOSITIONED PER COMFORT. DENIES ANY ACUTE NEEDS OR DISTRESS NOTED AT THIS TIME.
--- NOTE | 2019-06-23 13:00 | NUR ---
PT RESTING IN BED WITH EYES CLOSED. WILL CONT TO MONITOR.
--- NOTE | 2019-06-23 14:25 | NUR ---
REPORT CALLED TO MAAME ON MED 2. NO ACUTE NEEDS OR DISTRESS NOTED AT THIS TIME. VSS. WILL CONT TO MONITOR.
--- NOTE | 2019-06-23 15:25 | NUR ---
RECEIVED PATIENT FROM ICU VIA BED AT 1510. PATIENT ALERT/AWAKE. RESP EVEN AND UNLABORED. YANKER PROVIDED, CONNECTED TO SUCTION. RESP EVEN AND UNLABORED. CALL LIGHT PLACED WITHIN REACH. NO DISTRESS. FISTULA TO RIGHT ARM WITH GOOD BRUIT AND THRILL. SR UP FOR SAFETY.
--- NOTE | 2019-06-23 17:16 | NUR ---
RESTING IN BED. ASSISTED TO PULL PATIENT UP IN THE BED AND CURRENTLY SITTING UP AT 45 DEGREES TO CONSUME PM MEAL. FEMALE VISITOR AT BEDSIDE ASSISTING PATIENT TO EAT DINNER. RESP EVEN AND UNLABORED. PATIENT CONTINUES TO COUGH UP THICK SPUTUM, YAWKER MADE AVAILABLE TO PATIENT.
[2019-06-24] VITALS: BP 142/42
[2019-06-24 04:00] VITALS: BP 146/64
[2019-06-24 04:36] LABS: HEMOGLOBIN 11.9 g/dL (13.5-17.5); MCH 29.7 pg (26.0-34.0); MCHC 32.2 g/dL (31.0-37.0); MCV 92.3 fL (80.0-100.0); RBC 4.01 10x6/uL (4.20-6.10); RDW 15.6 % (11.5-14.5); WBC 10.7 10x3/uL (4.8-10.8)
--- NOTE | 2019-06-24 07:00 | NUR ---
RECEIVED REPORT. ASSUMED CARE OF PATIENT. PATIENT RESTING WITH EYES CLOSED, EASILY AROUSED. BIPAP PATENT. RESP RATE 39. PATIENT REMAINS IN DROPLET ISOLATION. NO DISTRESS.
--- NOTE | 2019-06-24 07:20 | NUR ---
NEW BLANKET AND SHEET PROVIDED TO PATIENT.
--- NOTE | 2019-06-24 08:32 | NUR ---
FSBS 87. NO INSULIN PER SLIDING SCALE.
--- NOTE | 2019-06-24 08:34 | NUR ---
PATIENT REFUSED ALL AM MEDS AND AM MEAL AT THIS TIME. WILL ATTEMPT AGAIN IN ONE HOUR.
[2019-06-24 10:04] VITALS: BP 118/49
--- NOTE | 2019-06-24 13:29 | NUR ---
INCENTIVE SPIROMETER PROVIDED TO PATIENT.
--- NOTE | 2019-06-24 13:29 | NUR ---
FSBS 116. NO INSULIN COVERAGE PER SLIDING SCALE.
[2019-06-24 13:48] VITALS: BP 149/65
[2019-06-24 17:38] VITALS: BP 131/74
--- NOTE | 2019-06-24 19:31 | NUR ---
PT C/O PAIN AND REQUESTING MEDICATION. NEW ORDER FROM LEO RODRIGUEZ FOR NORCO 5-325MG Q6H PRN PAIN.
[2019-06-25] VITALS: BP 102/74
[2019-06-25 04:00] VITALS: BP 105/73
--- NOTE | 2019-06-25 05:09 | NUR ---
PT VOICES NO C/O OR CONCERNS DURING THE NIGHT. RESTING QUIETLY WITH BIPAP ON. AT BEDSIDE. WILL CTM.
[2019-06-25 06:10] LABS: HEMATOCRIT 34.2 % (42.0-54.0); HEMOGLOBIN 10.9 g/dL (13.5-17.5); MCH 29.7 pg (26.0-34.0); MCHC 31.9 g/dL (31.0-37.0); MCV 93.2 fL (80.0-100.0); MEAN PLATELET VOLUME 11.3 fL (7.4-10.4); RBC 3.67 10x6/uL (4.20-6.10); RDW 15.7 % (11.5-14.5)
[2019-06-25 06:20] LABS: ANION GAP 14.8 mmol/L (8-16); BILIRUBIN - TOTAL 0.51 mg/dL (0.2-1.3); C-REACTIVE PROTEIN 15.4 mg/dL (0.0-0.9); CALCIUM 9.1 mg/dL (8.5-10.1); CARBON DIOXIDE 30.2 mmol/L (21.0-32.0); CREATININE - SERUM 8.8 mg/dL (0.6-1.3); MAGNESIUM - SERUM 2.5 mg/dL (1.8-2.4); PHOSPHOROUS 7.8 mg/dL (2.5-4.9); PROTEIN - SERUM 7.7 g/dL (6.4-8.2)
[2019-06-25 06:27] LABS: INR 1.21 (0.85-1.17); PROTIME 15.2 SECONDS (11.6-15.0); WBC 7.9 10x3/uL (4.8-10.8)
--- NOTE | 2019-06-25 07:52 | NUR ---
PT RESTING IN BED ALERT AND ORIENTEDX4. PT JAMES AT BEDSIDE. PT ON 4L HIGH FLOW 4L. NO S/S OF DISTRESS. BP-94/43 OTHERWISE STABLE. BED LOW CALL LIGHT WITHIN REACH. WILL CONTINUE TO MONITR.
[2019-06-25 11:00] VITALS: BP 134/67
--- NOTE | 2019-06-25 18:46 | NUR ---
I have reviewed this patient and I concur with the Shift Assessment completed by the Licensed Practical Nurse today this shift.
--- NOTE | 2019-06-25 19:15 | NUR ---
REPORT RECEIVED, WILL CONTINUE POC. PATIENT IS AAOX4, LYING IN SEMI-FOWLERS POSITION. NO S/S OF DISTRESS, RR EVEN AND UNLABORED ON 3.5L HFNC. ASSISTED PATIENT TO NEW BED THAT WEIGHS AND LOCKS PROPERLY. PERFORMED FLACO CARE AND APPLIED BUTT PASTE TO BUTTOCKS. PATIENT DENIES NEEDS AT THIS TIME. CL IN REACH, BED LOCKED AND LOWERED. AT BEDSIDE, DROPLET PRECAUTIONS MAINTAINED. WILL CTM.
[2019-06-25 20:00] VITALS: BP 148/69
[2019-06-26 01:22] VITALS: BP 132/103
--- NOTE | 2019-06-26 05:37 | NUR ---
I have reviewed this patient and I concur with the Shift Assessment completed by the Licensed Practical Nurse today this shift.
[2019-06-26 06:14] VITALS: BP 97/66
--- NOTE | 2019-06-26 07:00 | NUR ---
RECEIVED REPORT. ASSUMED CARE OF PATIENT. RESTING IN BED WITH EYES CLOSED. RESP EVEN AND UNLABORED. BIPAP OFF, 02 VIA LA. PATIENT AT BEDSIDE. PATIENT REMAINS IN DROPLET ISOLATION FOR PSEUDOMONAS. CALL LIGHT WITHIN REACH. HERE FOR AM ROUNDS.
[2019-06-26 07:16] LABS: HEMATOCRIT 34.1 % (42.0-54.0); HEMOGLOBIN 10.6 g/dL (13.5-17.5); MCH 29.2 pg (26.0-34.0); MCHC 31.1 g/dL (31.0-37.0); MCV 93.9 fL (80.0-100.0); MEAN PLATELET VOLUME 10.9 fL (7.4-10.4); PLATELET COUNT 283 10x3/uL (130-400); RBC 3.63 10x6/uL (4.20-6.10); RDW 15.5 % (11.5-14.5); WBC 6.6 10x3/uL (4.8-10.8)
[2019-06-26 07:33] LABS: ANION GAP 16.8 mmol/L (8-16); CALCIUM 8.9 mg/dL (8.5-10.1); CARBON DIOXIDE 27.4 mmol/L (21.0-32.0); CREATININE - SERUM 10.1 mg/dL (0.6-1.3); PHOSPHOROUS 7.5 mg/dL (2.5-4.9); POTASSIUM - SERUM 4.2 mmol/L (3.5-5.1)
--- NOTE | 2019-06-26 08:23 | NUR ---
FSBS 76. NO INSULIN PER SLIDING SCALE.
--- NOTE | 2019-06-26 08:37 | MORECARE ---
CASE MANAGEMENT DISCHARGE SUMMARY PATIENT: JASE MORGAN UNIT: [id number] ADM DATE: 06/06/19 AGE: 63 : 55 SEX: M ROOM/BED: D.2111 AUTHOR: JESSIKA,DOC PHYSICIAN: REFERRING PHYSICIAN: PEREZ STEINER MD DATE OF SERVICE: 06/26/19 Discharge Plan Patient Name: JASE MORGAN Facility: [facility]:[place] : 1955 Planned Disposition: Home Anticipated Discharge Date: Discharge Date: Expected LOS: Initial Reviewer: [email or web address] Initial Review Date: 06/07/2019 Generated: 06/26/19 9:37 am DCP- Discharge Planning Updated by [email or web address]: Jen Corona on 06/07/19 3:[address] Patient Name: JASE MORGAN Admission Status: ER Accout number: [id number] Admission Date: 06-06-2019 : 1955 Admission Diagnosis: Attending: PEREZ STEINER Current LOS: 1 Anticipated DC Date: Planned Disposition: Home Primary Insurance: MEDICARE A & B Discharge Planning Comments: CM met with patient's daughter to complete initial dc planning assessment. CM educated patient on the CM role and verbal consent given by patient to complete assessment. Patient is currently sedated on vent. CM verified patient's address, phone number, and emergency contact phone numbers. Patient lives at home with his spouse. At discharge patient plans to return home and feels that she may require some assistance. CM discussed availability of home health, rehab services, and medical equipment. Patient's daughter is uncertain of patient's medical equipment at home. Patient does have hemodialysis MWF in [place] @ 0600. CM will continue to follow and will assist as needed with dc plans/needs. Net Developer: Jen Corona DCPIA - Discharge Planning Initial Assessment Updated by [email or web address]: Jen Corona on 06/07/19 5:26 pm * Is the patient Alert and Oriented? Yes * How many steps to enter\exit or inside your home? * PCP OBDULIA * [facility] [place][NOTE 3] * Preadmission Environment Home with Family * ADLs Independent * Equipment None * Other Equipment UNCERTAIN? * List name and contact numbers for known caregivers / representatives who currently or will assist patient after discharge: JAMES MORGAN - SPOUSE - [phone] * Verbal permission to speak to the caregivers and representatives has been obtained from the patient. Yes * Community resources currently utilized None * Additional services required to return to the preadmission environment? No * Can the patient safely return to the preadmission environment? Yes * Has this patient been hospitalized within the prior 30 days at any hospital? No Coverage Notice Reviewer: [email or web address] Nomi Corona Notice Issued Date-Time: 06/21/2019 17:09 Notice Type: Patient Choice Letter Notice Delivered To: Family Member Relationship to Patient: Spouse Production Control Coordinator Name: JAMES MORGAN Delivery Method: HAND - Hand Delivered Naty Days: Prior Verbal Notification: Recipient Understood Notice: Yes Recipient Signature: Yes Med Rec Note Co-signed by Attending: Coverage Notice Comment: MENG FOR ANY HOME HEALTH AVAIALBLE AT DISCHARGE Last DP export: 06/07/19 4:06 p Patient Name: JASE MORGAN Page [phone] at 0837 All edits/amendments must be made on the electronic document DICTATION DATE: 06/26/19 0837 FRAME RUNNER: RICH[place] 06/26/19 0837 RPT#: [id number] DC DATE: STATUS: ADM IN [facility] [address] [place] [address] END OF REPORT
[2019-06-26 09:02] LABS: ANISOCYTOSIS OCC; EOSINOPHILS 1 % (0-7); LYMPHOCYTES 9 % (15-50); MONOCYTES 21 % (2-11); NEUTROPHILS 69 % (40-80); PLATELET ESTIMATE NORMAL; ROULEAUX OCC
[2019-06-26 09:41] VITALS: BP 124/97
--- NOTE | 2019-06-26 10:17 | NUR ---
Nutrition Follow-up: Observed breakfast tray this AM (~<=50% eaten). Noted ST continues to rec puree with honey thick liquids. Diet: Renal, Puree with Honey Thick Liquids PO intake: 25-50% Wt: 217.1# (06/25); 233.6# (06/22); 251.3# (06/16); 245.8# (06/11); 240.3# (06/07) Last BM: 06/24 per chart Labs noted: PO4 7.5 Meds noted: Renagel, Sensipar, Nephrovite, Pepcid -Encourage PO intake and honor food preferences within diet restrictions. -+Nepro with meals. -MD may consider appetite stimulant. -Monitor wt; noted wt loss. -RD following.
--- NOTE | 2019-06-26 11:30 | NUR ---
PATIENT OOB TO CHAIR AT BEDSIDE VIA PHYSICAL THERAPY. NO DISTRESS. TOLERATING SITTING UP WELL.
--- NOTE | 2019-06-26 12:02 | NUR ---
Rehab Note- Acute Inpatient Rehab prescreen order received. The patient has PT, OT, ST in at this time. The patient hasn't been seen since 06/21 with OT, and refused PT on 06/23 and then did not have therapy on 06/24, have spoken with Leon cai. Will have to participate in the required therapy 3hrs/day. Will continue to follow at this time and also the patient's wants him to go to outpatient therapy. Will follow at this time. Thank you for this referral! Carmen Mota RN Clinical Liaison, [facility] Rehab
--- NOTE | 2019-06-26 12:29 | NUR ---
CONTINUES SITTING UP IN CHAIR. AT BEDSIDE ASSISTING PATIENT WITH NOON MEAL. NO DISTRESS. CALL LIGHT WITHIN REACH.
--- NOTE | 2019-06-26 13:17 | NUR ---
OT NOTE: PT DOING BETTER; ABLE TO PERFORM BED MOB WITH MOD ASSIST; SPV WITH STATIC SITTING; TRANSFERS WITH MOD/MAX ASSIST; CONT WITH UE WEAKNESS, HOWEVER, IMPROVEMENT IN FUNCTIONAL USE OF HANDS NOTED. RECOMMEND IP REHAB TO IMPROVE STRENGTH, ENDURANCE, AND ADLS IN ORDER TO RETURN HOME. CHERRY GALLARDO, OTR/L
[2019-06-26 13:59] VITALS: BP 174/110
[2019-06-26 14:01] VITALS: BP 157/110
--- NOTE | 2019-06-26 15:12 | NUR ---
OT NOTE: PT SEEN IN PM; PERFORMED BETTER WITH TRANSFER USING RW; REQUIRED ASSIST WITH WALKER MGMT DUE TO UE WEAKNESS, HOWEVER, ABLE TO TAKE APPROX 6-7 STEPS FROM CHAIR TO BED. TRANSFERRED TO BED TO REST; THEN TOOK APPROX 4 MORE SIDE STEPS WITH MOD ASSIST WITH WALKER MGMT ONLY. PT CONT TO HAVE DIFFICULTY WITH FEEDING AND ADLS DUE TO LIMITED USE OF HANDS AND WEAKNESS IN UES. PT ABLE TO HOLD CUP OF COFFEE, HOWEVER, ASSISTS WITH FEEDING. MOD ASSIST FOR SIT TO SUPINE. EDUCATED PT ON FINGER FLEX/EXT EXS TO IMPROVE ROM AND CHIEF PRIVACY OFFICER STRENGHT. CHERRY GALLARDO, OTR/L [phone]
--- NOTE | 2019-06-26 16:01 | NUR ---
DIALYSIS AT BEDSIDE AT THIS TIME.
--- NOTE | 2019-06-26 19:23 | NUR ---
REPORT RECEIVED, WILL CONTINUE POC. PATIENT IS AAOX4, DIALYSIS AT BEDSIDE. NO S/S OF DISTRESS OBSERVED, RR EVEN AND UNLABORED ON 3.5L HFNC. RT IJ SL. PATIENT DENIES NEEDS AT THIS TIME. CL IN REACH, BED LOCKED AND LOWERED. PASCUAL ALARM ON, DROPLET PRECAUTIONS MAINTAINED. AT BEDSIDE. WILL CTM.
--- NOTE | 2019-06-26 19:52 | NUR ---
INFORMED BY INDEPENDENT LIVING ADVISOR THAT SHE GOT 3L OFF AND THAT HIS BP DROPPED BUT ITS BACK UP NOW. PATIENT IS WANTING TO SIT UP ON SIDE OF BED, ADVISED PATIENT THAT HE SOULD LIE DOWN FOR A BIT CONSIDERING HE HAD RECEIVED BP MEDS JUST BEFORE DIALYSIS AND A NORCO DURING DIALYSIS THAT WE DON'T WANT HIS BP TO BOTTOM OUT. PATIENT UNDERSTANDS.
[2019-06-26 20:00] VITALS: BP 103/58
--- NOTE | 2019-06-26 23:30 | NUR ---
REPOSITIONED PT IN BED. PATIENT REQUEST RT TO PLACE HIM ON BIPAP, RT CALLED.
[2019-06-27 00:16] VITALS: BP 125/50
[2019-06-27 04:59] LABS: HEMATOCRIT 36.3 % (42.0-54.0); HEMOGLOBIN 11.7 g/dL (13.5-17.5); MCH 30.2 pg (26.0-34.0); MCHC 32.2 g/dL (31.0-37.0); MCV 93.8 fL (80.0-100.0); MEAN PLATELET VOLUME 10.1 fL (7.4-10.4); RBC 3.87 10x6/uL (4.20-6.10); RDW 15.2 % (11.5-14.5); WBC 6.1 10x3/uL (4.8-10.8)
[2019-06-27 05:12] LABS: ANION GAP 16.2 mmol/L (8-16); CALCIUM 8.9 mg/dL (8.5-10.1); CREATININE - SERUM 7.9 mg/dL (0.6-1.3); PHOSPHOROUS 6.3 mg/dL (2.5-4.9); POTASSIUM - SERUM 4.2 mmol/L (3.5-5.1)
[2019-06-27 05:15] VITALS: BP 129/92
--- NOTE | 2019-06-27 06:26 | NUR ---
I have reviewed this patient and I concur with the Shift Assessment completed by the Licensed Practical Nurse today this shift.
[2019-06-27 07:59] VITALS: BP 123/50
--- NOTE | 2019-06-27 08:00 | NUR ---
AM ROUNDS COMPLETED. INTRODUCED MYSELF TO PT PRIMARY RN FOR TODAYS SHIFT. PT IS A&O SITTING UP IN BED RESTING QUIETLY. NO FAMILY PRESENT CURRENTLY. SHIFT ASSESSMENT COMPLETED. PTS R.NECK CVL DRSG IS SOILED AND FALLING OFF. STERILE DRSG CHANGE PROVIDED AND BIOPATCH INTACT, DRSG ADHERED TO SKIN AND SWAB CAPS IN USE. ALL LUMENS OF TRIPLE LUMEN FLUSH WITHOUT ANY RESISTANCE NOTED. PT DENIES ANY CURRENT PAIN OR NEEDS AT THIS TIME. WILL REVIEW CHART AND CPOC.
--- NOTE | 2019-06-27 09:10 | NUR ---
UNABLE TO GET PT UP WITHOUT THERAPY SO UNABLE TO STAND FOR 2VIEW XRAY.
--- NOTE | 2019-06-27 09:55 | NUR ---
PT UP TO BEDSIDE CHAIR WITH MODERATE ASSISTANCE FROM THERAPY.
--- NOTE | 2019-06-27 10:25 | NUR ---
COMPLETE BATH GIVEN ALONG WITH LINEN CHANGE. PT STILL SITTING UP IN CHAIR RESTING QUIETLY WITH AT BEDSIDE. PT DENIES ANY CURRENT PAIN OR NEEDS AT THIS TIME. CL IN REACH. WILL CTM.
[2019-06-27 11:42] VITALS: BP 97/51
--- NOTE | 2019-06-27 13:47 | NUR ---
OT NOTE: PT COMPLETED SIDE ROLLING WITH MIN A. PT COMPLETED SIT TO STAND WITH MIN/MOD A. PT COMPLETED BED TO CHAIR TRANSFER WITH MOD A. PT COMPLETED UE FUNCTIONAL REACHING WITH TASKS AND WALKER MANAGEMENT. [phone] THANK YOU,LELIA ACUNA
[2019-06-27] MEDS ORDERED: PLAVIX75 MG PO (14:25)
[2019-06-27] MEDS ORDERED: MERREM 500 MG/500 MG IV (14:25)
[2019-06-27] MEDS ORDERED: CRESTOR10 MG PO (14:28)
[2019-06-27] MEDS ORDERED: ASPIRIN81 MG PO (14:30)
[2019-06-27] MEDS ORDERED: FLORAJEN3 CAPS460 MG PO (14:31)
[2019-06-27] MEDS ORDERED: NEPHRO-VITE RX1 TAB PO (14:31)
--- NOTE | 2019-06-27 15:22 | MORECARE ---
CASE MANAGEMENT DISCHARGE SUMMARY PATIENT: JASE MORGAN UNIT: [id number] ADM DATE: 06/06/19 AGE: 63 : 55 SEX: M ROOM/BED: D.2111 AUTHOR: LANCE ROSEN PHYSICIAN: REFERRING PHYSICIAN: PEREZ STEINER MD DATE OF SERVICE: 06/27/19 Discharge Plan Patient Name: JASE MORGAN [facility] [facility] 1955 Planned Disposition: Inpatient Rehab Anticipated Discharge Date: 06/27/19 Discharge Date: Expected LOS: 21 Initial Reviewer: [id number] Initial Review Date: 06/07/2019 Generated: 06/27/19 4:22 pm Comments DCP- Discharge Planning Updated by [email or web address]: Diomedes Kay on 06/27/19 2:[address] Patient Name: JASE MORGAN Encounter No: [id number] : 1955 Primary Insurance: MEDICARE A & B Anticipated DC Date: 06-27-2019 Planned Disposition: Inpatient Rehab External Planned Provider: [facility] INPATIENT REHAB DCP follow-up note: CM RECEIVED INPATIENT REHAB PRESCREEN,SPOKE TO PT AND SPOUSE IN ROOM REGARDING TREATMENT PLAN AND OPTIONS FOR REHAB. PT PROVIDED PERMISSION TO DISCUSS HIS CARE AND TREATMENT IN PRESENCE OF AND WITH HIS , JAMES. CM DISCUSSED REHAB OPTION, LOCATIONS AND PROVIDERS. PT AND SPOUSE AGREE TO REHAB AT [facility]. CHOICE SIGNED. IMPORTANT MESSAGE FROM MEDICARE PROVIDED AND DISCUSSED. CM SPOKE TO SANDRA OF INPATIENT REHAB, THEY PLAN TO ACCEPT PT TODAY IF ABLE TO DISCHARGE FOR REHAB. CM NOTIFIED MARY RODRIGUEZ WHO PROVIDED DISCHARGE ORDERS. BEDSIDE AND CENTRAL OFFICE MAINTAINER NURSE NOTIFIED. [facility] INPATIENT REHAB TO CONTACT MED 2 NURSE WITH ROOM NUMBER WHEN READY TO ACCEPT PT AND NURSE REPORT. JOSE ALBERTO Downing DCP- Discharge Planning Updated by [id number]: Jen Corona on 06/07/19 3:[address] Patient Name: JASE MORGAN Admission Status: ER Accout number: [id number] Admission Date: 06-06-2019 : 1955 Admission Diagnosis: Attending: PEREZ STEINER Current LOS: 1 Anticipated DC Date: Planned Disposition: Home Primary Insurance: MEDICARE A & B Discharge Planning Comments: CM met with patient's daughter to complete initial dc planning assessment. CM educated patient on the CM role and verbal consent given by patient to complete assessment. Patient is currently sedated on vent. CM verified patient's address, phone number, and emergency contact phone numbers. Patient lives at home with his spouse. At discharge patient plans to return home and feels that she may require some assistance. CM discussed availability of home health, rehab services, and medical equipment. Patient's daughter is uncertain of patient's medical equipment at home. Patient does have hemodialysis MWF in [place] @ 0600. CM will continue to follow and will assist as needed with dc plans/needs. Transverse Abdominal Muscle Nurse: Jen Corona DCPIA - Discharge Planning Initial Assessment Updated by [id number]: Jen Corona on 06/07/19 5:26 pm * Is the patient Alert and Oriented? Yes * How many steps to enter\exit or inside your home? * PCP [facility] * Pharmacy [facility] * Preadmission Environment Home with Family * ADLs Independent * Equipment None * Other Equipment UNCERTAIN? * List name and contact numbers for known caregivers / representatives who currently or will assist patient after discharge: JAMES MORGAN - SPOUSE - [phone] * Verbal permission to speak to the caregivers and representatives has been obtained from the patient. Yes * Community resources currently utilized None * Additional services required to return to the preadmission environment? No * Can the patient safely return to the preadmission environment? Yes * Has this patient been hospitalized within the prior 30 days at any hospital? No Coverage Notice Reviewer: [id number] - Jen Corona Notice Issued Date-Time: 06/21/2019 17:09 Notice Type: Patient Choice Letter Notice Delivered To: Family Member Relationship to Patient: Spouse [facility] Director Name: JAMES MORGAN Delivery Method: HAND - Hand Delivered Naty Days: Prior Verbal Notification: Recipient Understood Notice: Yes Recipient Signature: Yes Med Rec Note Co-signed by Attending: Coverage Notice Comment: [facility] FOR ANY HOME HEALTH AVAIALBLE AT DISCHARGE Reviewer: [id number] - Diomedes Kay Notice Issued Date-Time: 06/27/2019 12:50 Notice Type: IM Discharge Notice Notice Delivered To: Family Member Relationship to Patient: Spouse [facility] Director Name: JAMES SANDRAY Delivery Method: HAND - Hand Delivered Naty Days: Prior Verbal Notification: Recipient Understood Notice: Yes Recipient Signature: Yes Med Rec Note Co-signed by Attending: Coverage Notice Comment: Reviewer: [id number] Nomi Kay Notice Issued Date-Time: 06/27/2019 12:50 Notice Type: Patient Choice Letter Notice Delivered To: Family Member Relationship to Patient: Spouse [facility] Director Name: JAMES MORGAN Delivery Method: HAND - Hand Delivered Naty Days: Prior Verbal Notification: Recipient Understood Notice: Yes Recipient Signature: Yes Med Rec Note Co-signed by Attending: Coverage Notice Comment: [facility] Last DP export: 06/26/19 7:37 a Patient Name: JASE MORGAN Page [phone] at 1522 All edits/amendments must be made on the electronic document DICTATION DATE: 06/27/191521 WELT SLASHER: [place] 06/27/19 152 RPT#: [id number] DC DATE: STATUS: ADM IN [facility] [address] [place] [address] END OF REPORT
--- NOTE | 2019-06-27 17:35 | NUR ---
PT SITTING UP IN BED EATING DINNER WITH ASSISTANCE FROM . BELONGINGS BEING COLLECTED. PT IS ACCEPTED INTO INPATIENT REHAB. WILL CALL REPORT AND TRANSFER AFTER DINNER.
--- NOTE | 2019-06-27 18:29 | NUR ---
DISCHARGE PAPERS SIGNED. REPORT CALLED TO BENJA ZAIDI. PT DENIES ANY FURTHER NEEDS. AT SIDE AND HAS ALL BELONGINGS WILL TRANSFER DOWN AT THIS TIME.
== END 2019-06-27 18:32 | DRG 981 ==
LOC: D.ER 10:53 → D.M2 12:33 → D.ER 12:33 → D.ICU 17:33 → D.M2 06-23 14:58
PROVIDERS: Emergency Medicine; Internal Medicine; Internal Medicine Interventional Cardiology; Internal Medicine Nephrology; Internal Medicine Pulmonary Disease; ADMIT Internal Medicine Nephrology; ATTEND Internal Medicine Nephrology
PROC: 0BH17EZ Insertion of Endotracheal Airway into Trachea, Via Natural or Artificial Opening (ICD-10-PCS; 2019-06-06)
PROC: 5A1955Z Respiratory Ventilation, Greater than 96 Consecutive Hours (ICD-10-PCS; 2019-06-06)
PROC: B2111ZZ Fluoroscopy of Multiple Coronary Arteries using Low Osmolar Contrast (ICD-10-PCS; 2019-06-08)
PROC: B2151ZZ Fluoroscopy of Left Heart using Low Osmolar Contrast (ICD-10-PCS; 2019-06-08)
PROC: 4A023N7 Measurement of Cardiac Sampling and Pressure, Left Heart, Percutaneous Approach (ICD-10-PCS; 2019-06-08)
PROC: 027035Z Dilation of Coronary Artery, One Artery with Two Drug-eluting Intraluminal Devices, Percutaneous Approach (ICD-10-PCS; 2019-06-08 12:21)
PROC: 027236Z Dilation of Coronary Artery, Three Arteries with Three Drug-eluting Intraluminal Devices, Percutaneous Approach (ICD-10-PCS; principal; 2019-06-13 09:00)
PROC: 0B9B8ZZ Drainage of Left Lower Lobe Bronchus, Via Natural or Artificial Opening Endoscopic (ICD-10-PCS; 2019-06-15)
PROC: 0B968ZZ Drainage of Right Lower Lobe Bronchus, Via Natural or Artificial Opening Endoscopic (ICD-10-PCS; 2019-06-15)
PROC: 05HM33Z Insertion of Infusion Device into Right Internal Jugular Vein, Percutaneous Approach (ICD-10-PCS; 2019-06-16)
DX: J96.01 Acute respiratory failure with hypoxia (principal); I21.4 Non-ST elevation (NSTEMI) myocardial infarction; G93.41 Metabolic encephalopathy; N18.6 End stage renal disease; I50.23 Acute on chronic systolic (congestive) heart failure; I13.2 Hypertensive heart and chronic kidney disease with heart failure and with stage 5 chronic kidney disease, or end stage renal disease; E87.2 Acidosis; I82.622 Acute embolism and thrombosis of deep veins of left upper extremity; J96.02 Acute respiratory failure with hypercapnia; E11.22 Type 2 diabetes mellitus with diabetic chronic kidney disease; Z99.2 Dependence on renal dialysis; I25.10 Atherosclerotic heart disease of native coronary artery without angina pectoris; G47.33 Obstructive sleep apnea (adult) (pediatric); Z91.19 Patient's noncompliance with other medical treatment and regimen; N18.9 Chronic kidney disease, unspecified; D63.1 Anemia in chronic kidney disease; E66.01 Morbid (severe) obesity due to excess calories; Z68.37 Body mass index [BMI] 37.0-37.9, adult

== ENCOUNTER 2019-06-27 18:02 | Inpatient (IN) | payer MEDICARE ==
[~2019-06-27] VITALS: Ht 172.7 cm; Wt 104.8 kg
--- NOTE | ~2019-06-27 | RHP ---
PATIENT: JASE MORGAN MEDICAL RECORD: [id number] ACCOUNT: [id number] LOCATION:[facility] : 55 ADMISSION DATE: 06/27/19 REHABILITATION HISTORY AND PHYSICAL EXAMINATION POST ADMISSION PHYSICIAN EXAMINATION DATE OF ADMISSION: 06/27/2019 ADMITTING DIAGNOSIS: Critical illness myopathy. HISTORY OF PRESENT ILLNESS: The patient admitted to inpatient rehabilitation for critical illness myopathy. A 63-year-old gentleman who presented to the ED after hemodialysis, complaining of cold-like symptoms, shortness of breath. He was unable to walk, got a history of CVA, glaucoma, depression, diabetes, hypertension, arthritis, peripheral vascular disease, end-stage renal dialysis. The patient was seen by nephrology and he was totally unresponsive and unarousable. He was on BiPAP. His chest x-ray; however, was not compatible with pulmonary edema. His troponin was somewhat elevated. He was initially intubated in the ED. He recently had been stopped on his Lyrica prior to this and Zanaflex had been started. His D-dimer was elevated, but he had no signs of PE. The patient was taken to the hemodialysis lab technician. He had a recent PTCA with stent to the RCA and recent PTCA with left main stenting and also circumflex. The patient was admitted to ICU, he was continued on respiratory support until 06/19/2019. 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 He has had an extended hospital stay. He has been on hemodialysis, he has been receiving OT, PT and speech therapy, slowly progressing. The patient needs to be monitored closely for his recent cardiac complication with his GA and stent placement. He has got a pacemaker. He has got acute confusion, he is using supplemental O2. He has got poor oral intake. He is on speech therapy recommendations with just honey thickened liquids. We are monitoring his lab values, he is receiving IV therapy. He is having proximal muscle weakness, balance deficits, low endurance, decreased activity tolerance, decreased strength, gait disturbance, limited safety awareness. He has got inability to care for himself and self-care deficits. These are barriers to his discharge home. He and his live at home. He is independent with ADLs and mobility prior to this. He is using a cane. He is currently setup for max assist for ADLs, mod to max assist for mobility and he and his family would like for him to get back home at his prior level of functioning. COMORBIDITIES: Include weakness, end-stage renal dialysis. He has got oropharyngeal dysphagia. He has got moderate pulmonary hypertension, has got coronary artery disease, anemia, diabetes. PAST MEDICAL HISTORY: Significant for CVA, numbness, vertigo, cataracts, got a history of stents and angioplasty, got a history of pacemaker placement, coronary artery disease, end-stage renal disease, acid reflux. PAST SURGICAL HISTORY: Includes cataract surgery, knee scope. He has had a fistula placed. He has got a pacemaker. ALLERGIES: GABAPENTIN. CURRENT MEDICATIONS: Include Merrem, he is on 500 mg IV every 24 hours. He is on Floranex 1 cap daily, metoprolol 50 mg daily, folic acid 1 tab daily, Plavix 75 mg daily, Sensipar 30 mg daily, aspirin chewable 81 mg daily. He is on HISTORY AND PHYSICAL [id number] JASE MORGAN Crestor 10 mg at bedtime. He is on sevelamer 0.8 grams t.i.d. and tramadol 50 mg every 4 hours p.r.n. HABITS: No alcohol or tobacco use. FAMILY HISTORY: Noncontributory. SOCIAL HISTORY: The patient hopes to return back home and get back to his prior level of functioning. REVIEW OF SYSTEMS: GENERAL: Does complain of weakness and fatigue. HEENT: Denies cold, cough, or congestion. CARDIOVASCULAR: Denies chest pain. PHYSICAL EXAMINATION: VITAL SIGNS: Stable, afebrile. GENERAL: A well-developed elderly gentleman, in no acute distress upon exam. HEENT: Normocephalic and atraumatic. Mucosa moist. NECK: Supple. No lymphadenopathy. LUNGS: Clear at this time. No wheezing, rhonchi or rales. HEART: Regular rate and rhythm. No murmurs, rubs, or gallops. ABDOMEN: Soft, benign, and nondistended. Positive bowel sounds times 4. EXTREMITIES: No clubbing, cyanosis or edema. His fistula looks good. NEUROLOGIC: He does have proximal muscle weakness. LABORATORY DATA: White count is 6.2, H&H of 11 and 34.8 and platelet count is 240. Sodium 137, potassium 4.2, BUN and creatinine of 53 and 9.8, blood sugar is noted to be 86. ASSESSMENT: This is a 63-year-old gentleman admitted to the rehab with a working diagnosis of critical illness myopathy. The patient has potential to make improvement. We instituted the following multidisciplinary therapies include, but not limited to physical, occupational, respiratory, speech, nutritional services, prosthetics and orthotics. Given his complex medical condition and risks for more complications, rehabilitation services cannot be provided at a low level of care such as skilled nurse facility. PLAN: 1. Admit to [facility] for intensive inpatient therapy to include the following disciplines; A. Physical therapy to improve gait, all transfer skills and bed mobility to a modified independent level. B. Occupational therapy to a modified independent level. C. Case management to assist with discharge planning and placement options. D. Nutrition to assist with nutritional needs. E. Rehabilitation nursing to assist in monitoring the patient's underlying medical conditions and to assist with any type of bowel or bladder management. 2. The patient's current medication and medical care will be continued. 3. The patient will be placed on standard fall precautions. 4. Appreciate renal seeing this patient during his stay and providing hemodialysis. 5. We will see again in the a.m. TRANSINT:[id number] Voice Confirmation ID: [id number] DOCUMENT ID: [id number] HISTORY AND PHYSICAL [id number] JASE MORGAN notes whether there has been none or any medical/functional change since admission: - No change since preadmission screen. TONY attests patient continues to be appropriate for IRF: - Continues to be appropriate. JAIRON VIVEROS MD CC: [id number] DICTATION DATE: 06/28/19834 ROOFING LABORER: 06/28/19 09 ADM IN [facility] [address] [id number]
[~2019-06-27 18:02] MED LIST changes: +ASPIRIN81 MG PO; +CRESTOR10 MG PO; +FLORAJEN3 CAPS460 MG PO; +MERREM 500 MG/500 MG IV; +NEPHRO-VITE RX1 TAB PO
--- NOTE | 2019-06-27 18:15 | NUR ---
RECIEVED FROM ACUTE TO ROOM 1116/WC.PLACED ON 4L/HIGH FLOW NASAL CANNULA.ASSISTED X2 PERSON TO BED.ORIENTED TO SURROUNDINGS.ACCOMPANIED WITH .
[2019-06-27 22:00] VITALS: BP 151/67; BMI 35.2
[2019-06-28 05:54] LABS: BASOPHILS 0.3 % (0-2); EOSINOPHILS 6.2 % (0-7); HEMATOCRIT 34.8 % (42.0-54.0); IMMATURE GRANULOCYTES 0.3 % (0-5); LYMPHOCYTES 23.2 % (15-50); MCH 29.7 pg (26.0-34.0); MCHC 31.6 g/dL (31.0-37.0); MCV 94.1 fL (80.0-100.0); MEAN PLATELET VOLUME 10.1 fL (7.4-10.4); PLATELET COUNT 240 10x3/uL (130-400); RDW 15.3 % (11.5-14.5); WBC 6.2 10x3/uL (4.8-10.8)
[2019-06-28 06:01] LABS: ANION GAP 14.7 mmol/L (8-16); CALCIUM 8.9 mg/dL (8.5-10.1); CARBON DIOXIDE 28.5 mmol/L (21.0-32.0); CREATININE - SERUM 9.8 mg/dL (0.6-1.3); POTASSIUM - SERUM 4.2 mmol/L (3.5-5.1)
[2019-06-28 08:00] VITALS: BP 182/109
--- NOTE | 2019-06-28 08:00 | NUR ---
SITTING UP IN CHAIR IN ROOM WITH BREAKFAST TRAY. POOR APPETITE NOTED. DENIES PAIN.
--- NOTE | 2019-06-28 09:30 | NUR ---
PT HAD LARGE AMOUNT (APPX 100 ML ??) DARK COLORED BLOOD EXPELL FROM [facility] WHEN HE WAS SITTING ON TOILET THIS MORNING FOR BM. HE DENIED PAIN. PT CLEANED UP AND NO ADDITIONAL LEAKING NOTED. DR LEI NOTIFIED.
--- NOTE | 2019-06-28 09:49 | NUR ---
PATIENT ADMITTED TO REHAB FROM ACUTE FLOOR. PATIENT DISCHARGE PLANS ARE TO RETURN HOME. PATIENT HAS DIALYSIS ON M-W- @ 0600 IN [place]. WILL CONTINUE TO FOLLOW WITH PATIENT.
--- NOTE | 2019-06-28 09:51 | NUR ---
PATIENT PCP IS DR. STEINER.
--- NOTE | 2019-06-28 10:01 | NUR ---
DR LEI NOTIFIED THAT DR ROBLES IS NO LONGER TAKING NEW PTS AND IS LEAVING THIS HOSP. NO NEW ORDERS
[2019-06-28 13:33] VITALS: Ht 172.7 cm; Wt 104.8 kg
--- NOTE | 2019-06-28 17:22 | NUR ---
IN ROOM HAVING DIALYSIS. IN ROOM WITH PT.
[2019-06-28 19:35] VITALS: BP 144/53
--- NOTE | 2019-06-28 21:44 | NUR ---
PATIENT MEDICATION GIVEN. BASELINE FSBS 137. PATIENT HAD NO C/O PAIN OR DISTRESS. IN ROOM. CALL LIGHT WITHIN REACH. WILL CONTINUE TO MONITOR.
--- NOTE | 2019-06-29 01:11 | NUR ---
PATIENT TAKEN OFF BED HARMAN. NO BM. BED LOW. AT BEDSIDE. CALL LIGHT WITHIN REACH. WILL CONTINUE TO MONITOR.
--- NOTE | 2019-06-29 03:36 | NUR ---
PATIENT HAS HAD NO ADVERSE REACTION TO ANTIBIOTICS. AT BEDSIDE. CALL LIGHTR WITHIN REACH. WILL CONTINUE TO MONITOR.
--- NOTE | 2019-06-29 03:48 | NUR ---
I have reviewed this patient and I concur with the Shift Assessment completed by the Licensed Practical Nurse today this shift.
--- NOTE | 2019-06-29 03:50 | NUR ---
PATIENT EYES CLOSED. RESPIRATIONS 20 & EVEN. 02 AT 4LHF. AT BEDSIDE. BED LOW. CALL LIGHT WITHIN REACH. WILL CONTINUE TO MONITOR.
--- NOTE | 2019-06-29 05:20 | NUR ---
PATIENT ASSIST ONTO BED HARMAN. IN ROOM. WILL CONTINUE TO MONITOR.
[2019-06-29 05:25] LABS: BASOPHILS 0.5 % (0-2); EOSINOPHILS 5.1 % (0-7); HEMATOCRIT 34.3 % (42.0-54.0); HEMOGLOBIN 10.8 g/dL (13.5-17.5); IMMATURE GRANULOCYTES 0.3 % (0-5); LYMPHOCYTES 19.8 % (15-50); MCH 29.7 pg (26.0-34.0); MCHC 31.5 g/dL (31.0-37.0); MCV 94.2 fL (80.0-100.0); MEAN PLATELET VOLUME 10.9 fL (7.4-10.4); MONOCYTES 18.5 % (2-11); NEUTROPHILS 55.8 % (40-80); PLATELET COUNT 251 10x3/uL (130-400); RBC 3.64 10x6/uL (4.20-6.10); WBC 6.1 10x3/uL (4.8-10.8)
[2019-06-29 05:35] LABS: ANION GAP 14.1 mmol/L (8-16); CARBON DIOXIDE 29.7 mmol/L (21.0-32.0); CREATININE - SERUM 7.9 mg/dL (0.6-1.3); POTASSIUM - SERUM 3.8 mmol/L (3.5-5.1)
[2019-06-29 08:00] VITALS: BP 140/48
--- NOTE | 2019-06-29 08:20 | NUR ---
SITTING IN WC IN ROOM FOR BREAKFAST. IS WEAK AND UNABLE TO STAND BY SELF. HE FOLLOWS COMMANDS SLOWLY. DENIES PAIN OR INCREASED SOB. CALL LIGHT IN REACH
--- NOTE | 2019-06-29 15:58 | NUR ---
LAYING DOWN IN BED RESTING QUIETLY. NO S/S DISTRESS. SIDE RAILS UP X2. BED IN LOWEST POSITION. CALL LIGHT IN REACH
--- NOTE | 2019-06-29 20:12 | NUR ---
PATIENT RECEIVED LAYING IN BED. AT BEDSIDE. PATIENT CONTINUES ON DROPLET ISOLATION. ASSESSMENT & VITAL SIGNS DONE. WILL CONTINUE TO MONITOR.
[2019-06-29 21:45] VITALS: BP 115/35
--- NOTE | 2019-06-30 03:25 | NUR ---
I have reviewed this patient and I concur with the Shift Assessment completed by the Licensed Practical Nurse today this shift.
--- NOTE | 2019-06-30 05:04 | NUR ---
PATIENT EYES CLOSED. RESPIRATIONS 18 & EVEN. AT BEDSIDE. BED LOW. CALL LIGHT WITHIN REACH. WILL CONTINUE TO MONITOR.
[2019-06-30 08:00] VITALS: BP 160/77
--- NOTE | 2019-06-30 08:00 | NUR ---
SHIFT ASSMT DONE.
[2019-06-30 12:27] LABS: BASOPHILS 0.3 % (0-2); EOSINOPHILS 5.3 % (0-7); HEMOGLOBIN 11.5 g/dL (13.5-17.5); IMMATURE GRANULOCYTES 0.1 % (0-5); LYMPHOCYTES 18.4 % (15-50); MCH 30.3 pg (26.0-34.0); MCHC 31.9 g/dL (31.0-37.0); MCV 94.7 fL (80.0-100.0); MEAN PLATELET VOLUME 10.7 fL (7.4-10.4); MONOCYTES 16.1 % (2-11); NEUTROPHILS 59.8 % (40-80); PLATELET COUNT 266 10x3/uL (130-400); RDW 14.8 % (11.5-14.5); WBC 7.2 10x3/uL (4.8-10.8)
[2019-06-30 12:51] LABS: ANION GAP 16.9 mmol/L (8-16); CALCIUM 8.8 mg/dL (8.5-10.1); CARBON DIOXIDE 27.9 mmol/L (21.0-32.0); PHOSPHOROUS 7.9 mg/dL (2.5-4.9)
[2019-06-30 12:52] LABS: CREATININE - SERUM 10.1 mg/dL (0.6-1.3); POTASSIUM - SERUM 4.8 mmol/L (3.5-5.1)
--- NOTE | 2019-06-30 16:00 | NUR ---
RESTING QUIETLY.LEANNA FERRERA.
--- NOTE | 2019-06-30 19:38 | NUR ---
PT UP IN CHAIR WATCHING TV, IN ROOM, BED STRAIGHTENED, VITALS TAKEN, FLUIDS AND CALL LIGHT WITHIN REACH, FALL PRECAUTIONS IN PLACE
--- NOTE | 2019-07-01 00:39 | NUR ---
PT ASLEEP AROUSES EASILY TO VOICE, NO NEEDS NOTED, FLUIDS, CALL LIGHT AND AT BEDSIDE, FALL PRECAUTION ALARMS IN PLACE AND WORKING
--- NOTE | 2019-07-01 02:13 | NUR ---
PT C/O LEG/BACK/NECK PAIN UNABLE TO SLEEP, TRAMADOL GIVEN, NO OTHER NEEDS NOTED, PT REMAINS ON DROPLET PRECAUTION ISO
[2019-07-01 03:20] VITALS: BP 165/55
[2019-07-01 08:00] VITALS: BP 134/72
--- NOTE | 2019-07-01 08:00 | NUR ---
SHIFT ASSMT COMPLETED.DENIES NEEDS. AT BEDSIDE.BILAT HEELS FLOATED.
--- NOTE | 2019-07-01 12:00 | NUR ---
EATING LUNCH.SITTING UP IN WC.
--- NOTE | 2019-07-01 19:31 | NUR ---
PT IN BED ON RT SIDE, IN CHAIR AT BED SIDE, CALL LIGHT/FLUIDS WITHIN REACH, VITALS TAKEN, NO NEEDS NOTED, FALL PRECAUTIONS IN PLACE
[2019-07-02 00:40] VITALS: BP 139/47
--- NOTE | 2019-07-02 02:53 | NUR ---
PT REQUESTED AND RECIEVED PAIN MEDICATION FOR NECK, BACK, BILATERAL LEG PAIN AT 0233
[2019-07-02 06:47] LABS: ANION GAP 16.1 mmol/L (8-16); CALCIUM 8.2 mg/dL (8.5-10.1); CARBON DIOXIDE 27.4 mmol/L (21.0-32.0); CREATININE - SERUM 8.5 mg/dL (0.6-1.3); POTASSIUM - SERUM 4.5 mmol/L (3.5-5.1)
[2019-07-02 07:21] LABS: BASOPHILS 0.3 % (0-2); EOSINOPHILS 7.6 % (0-7); HEMATOCRIT 36.2 % (42.0-54.0); HEMOGLOBIN 11.3 g/dL (13.5-17.5); IMMATURE GRANULOCYTES 0.2 % (0-5); LYMPHOCYTES 16.5 % (15-50); MCH 29.4 pg (26.0-34.0); MCHC 31.2 g/dL (31.0-37.0); MCV 94.3 fL (80.0-100.0); MONOCYTES 13.6 % (2-11); NEUTROPHILS 61.8 % (40-80); PLATELET COUNT 261 10x3/uL (130-400); RBC 3.84 10x6/uL (4.20-6.10); RDW 14.7 % (11.5-14.5); WBC 5.9 10x3/uL (4.8-10.8)
[2019-07-02 08:00] VITALS: BP 167/107
--- NOTE | 2019-07-02 08:10 | NUR ---
SITTING UP IN WC FOR BREAKFAST. IS SLOW TO FOLLOW COMMANDS. ORIENTED X1. ATTEMPTS TO ANSWER QUESTIONS BUT OFTEN DOES NOT FINISH SENTENCE. OXYGEN IN USE, NC 4L. DENIES PAIN. CALL LIGHT IN REACH. FAMILY IN ROOM
--- NOTE | 2019-07-02 12:13 | NUR ---
Nutrition Follow Up Comments: Patient with therapy this am. Patient has been eating okay. 52% avg po intake for the past 9 meals. Patient has not had a BM recorded since 06/25. Pt has been tolerating Nepro and had 480 ml on 06/29 and 240 ml on 06/30. Diet: Renal Mechanical Soft, Nepro with meals PO intake: 52% avg x 9 meals. BM x 1 on 06/25 Wt: 231 lbs on 06/26. No new wt recorded Significant Meds: Vit B complex, Crestor, Sevelamer Carbonate Significant Labs: Na- 134(L), Cl- 95(L), BUN- 42(H), Creatinine- 8.5(H), Ca- 8.2(L), Phos- 7.9(H) Continue current diet as tolerated Continue nepro as tolerated Suggest laxative for constipation Clinical dietitian to continue monitoring and following pt DHS.
--- NOTE | 2019-07-02 15:36 | NUR ---
LAYING DOWN IN BED RESTING QUIETLY. SIDE RAILS UP X2. EYES CLOSED. OXYGEN IN PLACE, NO S/S DISTRESS. CALL LIGHT IN REACH
[2019-07-02 19:29] VITALS: BP 142/59
--- NOTE | 2019-07-02 19:40 | NUR ---
PT IS RESTING IN BED WITH EYES OPEN. ALERT TO SELF. DENIES NEEDS AT THIS TIME, BUT REQUESTED HIS SPAP BE PUT ON AT 8PM. RIGHT ARM FISTULA NOTED WITH GOOD BRUITT AND THRILL. O2 IS ON @ 4LPM PER HIGH FLOW CANNULA. NO SOB NOTED. SR'S ARE UP X 3 IN BED. CALL LIGHT AND BEDSIDE TABLE ARE WITHIN EASY REACH. SPOUSE IS RESTING IN A RECLINER IN THE ROOM.
--- NOTE | 2019-07-03 01:58 | NUR ---
I have reviewed this patient and I concur with the Shift Assessment completed by the Licensed Practical Nurse today this shift.
--- NOTE | 2019-07-03 05:21 | NUR ---
PT RESTING IN BED WITH EYES CLOSED. CPAP ON.
--- NOTE | 2019-07-03 07:37 | NUR ---
CVL D'C'D. DIRECT PRESSURE APPLIED FOR 15 MIN. OCCLUSIVE DSG APPLIED OVER 2X2 AND WOUND. NO S/S BLEEDING.
[2019-07-03 08:18] VITALS: BP 194/115
--- NOTE | 2019-07-03 12:06 | NUR ---
SITTING UP IN WC IN ROOM WORKING WITH THERAPY.
--- NOTE | 2019-07-03 19:40 | NUR ---
GREETED PATIENT AND INTRODUCED MYSELF HIS NURSE. PATIENT IS SITTING IN WHEELCHAIR AT THIS TIME WITH FAMILY MEMBER SITTING IN RECLINER AT BEDSIDE. O2 AT 4L IN USE VIA NC. RESPIRATIONS EVEN. NO S/S OF DISTRESS. CHANGED PTS BED UPON REQUEST. DENIES ANY FURTHER NEEDS AT THIS TIME. CALL LIGHT LAYING IN BED WHERE PATIENT CAN REACH WITH EASE.
[2019-07-03 20:00] VITALS: BP 169/41
[2019-07-04 00:10] VITALS: BP 100/40
[2019-07-04 06:00] VITALS: BP 152/91
[2019-07-04 06:38] LABS: HEMATOCRIT 33.7 % (42.0-54.0); HEMOGLOBIN 10.6 g/dL (13.5-17.5); LYMPHOCYTES 19.6 % (15-50); MCH 29.4 pg (26.0-34.0); MCHC 31.5 g/dL (31.0-37.0); MCV 93.6 fL (80.0-100.0); MEAN PLATELET VOLUME 10.1 fL (7.4-10.4); NEUTROPHILS 61.1 % (40-80); PLATELET COUNT 265 10x3/uL (130-400); RDW 14.7 % (11.5-14.5); WBC 5.6 10x3/uL (4.8-10.8)
[2019-07-04 06:47] LABS: ANION GAP 17.9 mmol/L (8-16); CALCIUM 7.8 mg/dL (8.5-10.1); CARBON DIOXIDE 25.5 mmol/L (21.0-32.0); CREATININE - SERUM 8.6 mg/dL (0.6-1.3); POTASSIUM - SERUM 4.4 mmol/L (3.5-5.1)
[2019-07-04 13:01] VITALS: BP 172/77
--- NOTE | 2019-07-04 14:50 | NUR ---
CARE TEAM MEETING: SPOUSE ATTENDED THE MEETING. HER QUESTIONS AND CONCERNS WERE ADDRESSED. TENATIVE DISCHARGE DATE IS 07/19/19. WILL CONTINUE TO FOLLOW WITH PATIENT.
--- NOTE | 2019-07-04 19:45 | NUR ---
GREETED PATIENT AND INTRODUCED MYSLEF HIS NURSE. PATIENT IS CURRENTLY SITTING IN WHEELCHAIR WATCHING TV. FAMILY MEMBER AT BEDSIDE. O2 AT 2L IN USE VIA NC. RESPIRATIONS EVEN. NO S/S OF DISTRESS. DENIES ANY FURTHER NEEDS AT THIS TIME. CALL LIGHT IN REACH.
[2019-07-04 22:00] VITALS: BP 151/86
[2019-07-05 00:05] VITALS: BP 160/55
--- NOTE | 2019-07-05 01:51 | NUR ---
PT RESTING QUIETLY WITH EYES CLOSED. RESPIRATIONS EVEN. NO S/S OF DISTRESS. BIPAP IN USE. CALL LIGHT IN REACH.
--- NOTE | 2019-07-05 04:02 | NUR ---
PT RESTING QUIETLY WITH EYES CLOSED. RESPIRTIONS EVEN. NO S/S OF DISTRESS. BIPAP MACHINE IN USE. FAMILY MEMBER ASLEEP IN CHAIR AT BEDSIDE. CALL LIGHT WITHIN REACH.
[2019-07-05 06:14] VITALS: BP 114/38
[2019-07-05 12:00] VITALS: BP 204/55
[2019-07-05 18:38] VITALS: BP 108/40
--- NOTE | 2019-07-05 19:52 | NUR ---
GREETED PATIENT AND INTRODUCED MYSELF HIS NURSE. PATIENT IS CURRENTLY SITTING IN WHEELCHAIR AT THIS TIME. O2 AT 2L IN USE VIA NC. RESPIRATIONS EVEN. NO S/S OF DISTRESS. CALL LIGHT IN REACH.
[2019-07-06 00:14] VITALS: BP 151/36
[2019-07-06 06:01] VITALS: BP 189/66
--- NOTE | 2019-07-06 12:06 | NUR ---
RIGHT HEEL WAS NOTED TO HAVE A BLACKENED BLISTER ON 06/30/19. THE BLACK AREA HAS SLOUGHED OFF TO REVEAL PINK INTACT SKIN. MEPILEX SPONGE IS BEING USED TO PROTECT THE SKIN. WOUND CARE WILL CONTINUE MONITORING.
[2019-07-06 12:21] VITALS: BP 187/114
--- NOTE | 2019-07-06 12:55 | NUR ---
SITTING UP IN WC IN ROOM. DENIES NEEDS OR C/O. HIS EYES ARE CLOSED BUT HE WILL TALK AND ANSWER QUESTIONS. OXYGEN IN PLACE. CALL LIGHT IN REACH
[2019-07-06 18:18] VITALS: BP 162/96
--- NOTE | 2019-07-06 19:35 | NUR ---
AWAKE AND WATCHING TV IN ROOM. REMAINS IN DROPLET ISOLATION. RESPIRATIONS UNLABORED. O2/2L ON PER NASAL CANNULA. NO ACUTE DISTRESS NOTED. CALL LIGHT IN REACH.
[2019-07-07 00:37] VITALS: BP 154/64
--- NOTE | 2019-07-07 00:38 | NUR ---
REFUSES TO LEAVE BIPAP ON. RESPIRATORY THERAPIST NOTIFED. SHE STATED TO PLACE HIM ON O2/2L PER NASAL CANNULA.
--- NOTE | 2019-07-07 01:58 | NUR ---
RESTING IN BED WITH O2/2L ON PER NASAL CANNULA. NO DISTRESS NOTED.
[2019-07-07 05:51] VITALS: BP 155/65
--- NOTE | 2019-07-07 07:35 | NUR ---
RESTING QUIETLY IN BED. HEAD OF BED ELEVATED [address] SIDE RAILS UP X2. CALL LIGHT IN REACH
[2019-07-07 08:21] VITALS: BP 190/69
[2019-07-07] MEDS ORDERED: HYDRALAZINE HCL50 MG PO (08:41)
[2019-07-07] MEDS ORDERED: NORVASC10 MG PO (08:41)
--- NOTE | 2019-07-07 10:58 | NUR ---
MOD ASST TO TRANSFER TO FROM BED. CONT OF BOWEL. HAD LARGE BM TODAY. DENIES INCREASED SOB.
[2019-07-07 13:41] VITALS: BP 162/62
[2019-07-07 18:27] VITALS: BP 159/69
--- NOTE | 2019-07-07 18:37 | NUR ---
SITTING UP IN WC IN ROOM TALKING ON PHONE WITH . HIS APPETITE IS POOR. HE HAD DIALYSIS IN HIS ROOM TODAY
--- NOTE | 2019-07-07 19:37 | NUR ---
PT SITTING UP IN WHEELCHAIR AT BEDSIDE. CL IN REACH. DENIES NEEDS OR PAIN AT THIS TIME. RESP EVEN AND UNLABORED. LUNGS CLEAR. BOWEL ACTIVE X4. FISTULA TO R ARM INTACT. PACEMAKER TO LEFT CHEST. WILL CONTINUE TO MONITOR.
--- NOTE | 2019-07-07 21:00 | NUR ---
ENCOURAGED PRODUCTIVE COUGH TO RECIEVE SPUTUM SAMPLE. NO RESULTS. WILL CONTINUE TO MONITOR.
[2019-07-08 00:27] VITALS: BP 100/59
--- NOTE | 2019-07-08 01:14 | NUR ---
I have reviewed this patient and I concur with the Shift Assessment completed by the Licensed Practical Nurse today this shift.
[2019-07-08 06:10] VITALS: BP 178/84
--- NOTE | 2019-07-08 06:13 | NUR ---
CHANGED DRESSING TO RIGHT HEEL MEPILEX AND KERLEX. TM
[2019-07-08 14:37] VITALS: BP 183/89
[2019-07-08 15:08] LABS: AMPHOTERICIN B MIC 0.5 ug/mL (())
[2019-07-08 18:52] VITALS: BP 188/130
--- NOTE | 2019-07-08 19:17 | NUR ---
PT SITTING UP IN WHEELCHAIR. CL IN REACH. DENIES NEEDS AT THIS TIME. REQUEST PAIN MED WAITING ON HOUSE SUP TO PULL FROM PYXIS. RESP EVEN AND UNLABORED. A/O X4. LUNGS CLEAR. BOWEL ACTIVE X4. FISTULA TO R ARM INTACT. WILL CONTINUE TO MONITOR.
[2019-07-09] VITALS: BP 115/78
--- NOTE | 2019-07-09 00:53 | NUR ---
I have reviewed this patient and I concur with the Shift Assessment completed by the Licensed Practical Nurse today this shift.
[2019-07-09 06:16] VITALS: BP 174/66
[2019-07-09 07:31] LABS: ANION GAP 16.5 mmol/L (8-16); CALCIUM 8.6 mg/dL (8.5-10.1); CARBON DIOXIDE 25.9 mmol/L (21.0-32.0); CREATININE - SERUM 9.1 mg/dL (0.6-1.3); PHOSPHOROUS 4.7 mg/dL (2.5-4.9); POTASSIUM - SERUM 4.4 mmol/L (3.5-5.1)
[2019-07-09 08:05] LABS: BASOPHILS 0.4 % (0-2); EOSINOPHILS 8.2 % (0-7); HEMATOCRIT 37.2 % (42.0-54.0); HEMOGLOBIN 11.6 g/dL (13.5-17.5); LYMPHOCYTES 18.1 % (15-50); MCHC 31.2 g/dL (31.0-37.0); MONOCYTES 12.1 % (2-11); NEUTROPHILS 61.2 % (40-80); PLATELET COUNT 289 10x3/uL (130-400); RDW 14.8 % (11.5-14.5); WBC 4.9 10x3/uL (4.8-10.8)
--- NOTE | 2019-07-09 08:30 | NUR ---
SITTING IN WC IN ROOM FOR BREAKFAST. ITEMS SURROUNDING HIM ARE DISORGANIZED AND SOME ARE IN FLOOR. HE DOES NOT TRY TO COLLECT ITEMS IN AN AREA, THEY ARE SCATTERED. HE DENIES INCREASED PAIN. HE WILL SPEAK 5-6 WORDS PER BREATH. CALL LIGHT IN REACH
[2019-07-09 12:00] VITALS: BP 161/129
--- NOTE | 2019-07-09 13:48 | NUR ---
Nutrition follow-up: Diet: renal mechanical soft with thin liquids PO intake ~50% of meals Labs reviewed WT: 231# +BM RDN following.
--- NOTE | 2019-07-09 15:46 | NUR ---
SITTING IN WC IN ROOM TALKING ON PHONE. DENIES INCREASED PAIN TO NECK. IS SLOW TO ANSWER FOLLOW COMMANDS. DENIES INCREASED SOB, HE CANT SEEM TO FIGURE OUT HOW TO PUT HIS OXYGEN TUBING IN HIS NOSE MOST OF THE TIME. HE IS CONT OF BOWEL. CALL LIGHT IN REACH
--- NOTE | 2019-07-09 19:03 | NUR ---
GREETED PATIENT AND INTRODUCED MYSELF HIS NURSE. PATIENT IS CURRENTLY UNDERGOING DIALYSIS IN ROOM WITH DIALYSIS NURSE. O2 AT 2L IN USE VIA NC. RESPIRATIONS EVEN. NO S/S OF DISTRESS. CALL LIGHT IN REACH.
[2019-07-09 19:39] VITALS: BP 150/63
--- NOTE | 2019-07-09 23:41 | NUR ---
PT RESTING QUIETLY WITH EYES CLOSED. RESPIRATIONS EVEN. NO S/S OF DISTRESS. BIPAP IN USE. CALL LIGHT WITHIN REACH.
[2019-07-10 00:26] VITALS: BP 127/40
--- NOTE | 2019-07-10 03:02 | NUR ---
PT RESTING QUIETLY WITH EYES CLOSED. RESPIRATIONS EVEN. NO S/S OF DISTRESS. O2 AT 3L IN USE VIA NC. CALL LIGHT WITHIN REACH LAYING ON PATIENTS LAP.
[2019-07-10 06:03] VITALS: BP 83/61
--- NOTE | 2019-07-10 08:00 | NUR ---
SHIFT ASSMT COMPLETED.PLAN TO DC HOME TODAY.BREAKFAST GIVEN.
[2019-07-10] MEDS ORDERED: HYDRALAZINE HCL25 MG PO (08:08)
--- NOTE | 2019-07-10 11:38 | NUR ---
PATIENT DISCHARGING HOME TODAY WITH FAMILY.[facility] WILL PROVIDE THERAPY AT HOME.PATIENT WILL CONTINUE WITH SAME HD DAYS AT [facility], M-W-F- @ 6:00 AM. NO NEW DME NEEDED AT THIS TIME. PATIENT CHOICE FORM FOR HOME HEALTH SIGNED AND FILED IN CHART, NO COMPARE DATA REVIEWED PATIENT HAS HAD [facility] IN THE PAST. [facility] FORM SIGNED, EXPLAINED AND FILED IN CHART. ONE GIVEN TO PATIENT. DSICHARGE INSTRUCTIONS FAXED TO HOME HEALTH AND REVIEWED WITH PATIENT PER PRIMARY NURSE.
--- NOTE | 2019-07-10 12:45 | NUR ---
REVIEWED MEDS AND F/U WITH DIALYSIS.DC'D IN STABLE CONDITION.
== END 2019-07-10 12:30 | disposition home health service (06) | DRG 91 ==
LOC: D.REHAB 18:02
PROVIDERS: Internal Medicine Nephrology; ADMIT Emergency Medicine; ATTEND Emergency Medicine
DX: G72.81 Critical illness myopathy (principal); N18.6 End stage renal disease; J96.02 Acute respiratory failure with hypercapnia; J96.01 Acute respiratory failure with hypoxia; I12.0 Hypertensive chronic kidney disease with stage 5 chronic kidney disease or end stage renal disease; E11.22 Type 2 diabetes mellitus with diabetic chronic kidney disease; Z99.2 Dependence on renal dialysis; R13.12 Dysphagia, oropharyngeal phase; I25.10 Atherosclerotic heart disease of native coronary artery without angina pectoris; I27.20 Pulmonary hypertension, unspecified; K21.9 Gastro-esophageal reflux disease without esophagitis; R53.1 Weakness; R47.1 Dysarthria and anarthria; D63.1 Anemia in chronic kidney disease; D69.6 Thrombocytopenia, unspecified; E78.5 Hyperlipidemia, unspecified

== ENCOUNTER 2020-01-28 09:31 | Emergency (ER) | payer MEDICARE ==
[~2020-01-28] VITALS: Ht 172.7 cm; Wt 102.3 kg
[~2020-01-28 09:31] MED LIST changes: +HYDRALAZINE HCL25 MG PO; +HYDRALAZINE HCL50 MG PO
[2020-01-28 09:40] VITALS: Ht 172.7 cm; Wt 102.3 kg
[2020-01-28 10:40] LABS: BASOPHILS 0.4 % (0-2); EOSINOPHILS 6.6 % (0-7); HEMATOCRIT 43.2 % (42.0-54.0); IMMATURE GRANULOCYTES 0.3 % (0-5); LYMPHOCYTES 13.3 % (15-50); MCHC 32.4 g/dL (31.0-37.0); MCV 92.5 fL (80.0-100.0); MEAN PLATELET VOLUME 10.4 fL (7.4-10.4); MONOCYTES 11.4 % (2-11); RBC 4.67 10x6/uL (4.20-6.10); RDW 16.6 % (11.5-14.5); WBC 6.9 10x3/uL (4.8-10.8)
[2020-01-28 10:56] LABS: APTT 30.2 SECONDS (22.8-39.4); INR 0.98 (0.85-1.17)
[2020-01-28 10:57] LABS: ANION GAP 15.2 mmol/L (8-16); CALCIUM 9.1 mg/dL (8.5-10.1); CARBON DIOXIDE 24.3 mmol/L (21.0-32.0); CREATININE - SERUM 9.3 mg/dL (0.6-1.3); POTASSIUM - SERUM 4.5 mmol/L (3.5-5.1)
[2020-01-28 11:03] LABS: ALBUMIN 3.6 g/dL (3.4-5.0); BILIRUBIN - TOTAL 0.49 mg/dL (0.2-1.3); PROTEIN - SERUM 8.5 g/dL (6.4-8.2)
[2020-01-28 11:07] LABS: PLATELET COUNT 196 10x3/uL (130-400)
[2020-01-28 11:28] VITALS: BP 144/96
== END 2020-01-28 11:28 | disposition home or self-care (01) ==
LOC: D.ER 09:31
PROVIDERS: Emergency Medicine
DX: K14.8 Other diseases of tongue (principal); E11.9 Type 2 diabetes mellitus without complications; I10 Essential (primary) hypertension; I25.2 Old myocardial infarction; Z95.5 Presence of coronary angioplasty implant and graft; I25.10 Atherosclerotic heart disease of native coronary artery without angina pectoris; Z95.0 Presence of cardiac pacemaker; K21.9 Gastro-esophageal reflux disease without esophagitis; N18.6 End stage renal disease; Z99.2 Dependence on renal dialysis